=== PATIENT | male | born 1935 | race Caucasian/White ===

== ENCOUNTER 2020-04-06 18:02 | Inpatient (IN) | payer MEDICARE ==
[~2020-04-06] VITALS: Ht 177.8 cm; Wt 38.6 kg
[2020-04-06] MEDS ORDERED: SODIUM CHLORIDE 0.9% 1000ML 1,000 ML IV STA (18:52)
--- NOTE | 2020-04-06 18:52 | Emergency Department Note ---
History of Present Illnes History of Present Illness Chief Complaint: Genitourinary History of Present Illness This is a 85 year old male with upcoming procedure for urologic procedure for R flank pain. Historian: Patient, Family Member Onset (how long ago): day(s) (4) Location: R flank Radiation: Reports abdomen, Reports flank Severity: moderate Onset quality: gradual Duration (how long): day(s) Timing of current episode: constant Progression: worsening Chronicity: new Context: Denies recent illness, Denies recent surgery, Denies recent immobilization, Denies recent travel, Denies trauma/injury, Denies new medications, Denies hx of DVT/PE, Denies non-compliance w/ medications, Denies other Relieving factors: rest Exacerbating factors: movement Associated symptoms: Reports weakness Treatments prior to arrival: none Previous service: tests performed Past Medical/Family History Physician Review I have reviewed the patient's past medical and family history. Any updates have been documented here. Past Medical History Recent Fever: No Clinical Suspicion of Infectio: Yes New/Unexplained Change in Ment: No Past Medical History: Hypertension Social History Unable to obtain PSH: critical patient Review of Systems ROS Narrative Unable to obtain ROS: critical patient Review of Systems Constitutional: Reports weakness Genitourinary: Reports pain (flank) Physical Exam Related Data Allergies: Coded Allergies: No Known Allergies (Unverified , 04/06/20) Triage Vital Signs Vital Signs Date Time Temp Pulse Resp B/P (MAP) Pulse Ox O2 Delivery O2 Flow Rate FiO2 04/06/20 18:47 97.7 64 18 93 Room Air Vital signs reviewed: Yes Physical Exam CONSTITUTIONAL Constitutional: Present distressed, Present ill appearing HENT HENT: Present normocephalic, Present atraumatic, Present oropharynx clear/moist, Present nose normal HENT L/R: Present left ext ear normal, Present right ext ear normal EYES Eyes: Reports PERRL, Reports conjunctivae normal NECK Neck: Present ROM normal PULMONARY Pulmonary: Present effort normal, Present breath sounds normal CARDIOVASCULAR Cardiovascular: Present regular rhythm, Present heart sounds normal, Present capillary refill normal, Present normal rate GASTROINTESTINAL Abdominal: Present soft, Present nontender, Present bowel sounds normal, Present right CVA tenderness GENITOURINARY Genitourinary: Present exam deferred SKIN Skin: Present warm, Present dry MUSCULOSKELETAL Musculoskeletal: Present ROM normal NEUROLOGICAL Neurological: Present alert, Present no gross motor or sensory deficits PSYCHOLOGICAL Results Laboratory Lab results reviewed: Yes Laboratory comments Laboratory Tests Test 04/06/20 21:30 04/06/20 19:02 Coronavirus (PCR) Not detected (NOTDETECTED) White Blood Count 6.45 x10e3/uL (4.8-10.8) Red Blood Count 4.57 x10e6/uL (4.3-5.7) Hemoglobin 13.0 g/dL (14.0-18.0) Hematocrit 41.8 % (38.2-49.6) Mean Corpuscular Volume 91.5 fL (81-99) Mean Corpuscular Hemoglobin 28.4 pg (28-32) Mean Corpuscular Hemoglobin Concent 31.1 g/dL (31-35) Red Cell Distribution Width 15.5 % (11.7-14.4) Platelet Count 253 x10e3/uL (140-360) Neutrophils (%) (Auto) 78.6 % (38.7-80.0) Lymphocytes (%) (Auto) 13.3 % (18.0-39.1) Monocytes (%) (Auto) 7.1 % (4.4-11.3) Eosinophils (%) (Auto) 0.0 % (0.0-6.0) Basophils (%) (Auto) 0.5 % (0.0-1.0) Neutrophils # (Auto) 5.1 (2.1-6.9) Lymphocytes # (Auto) 0.9 (1.0-3.2) Monocytes # (Auto) 0.5 (0.2-0.8) Eosinophils # (Auto) 0.0 (0.0-0.4) Basophils # (Auto) 0.0 (0.0-0.1) Absolute Immature Granulocyte (auto 0.03 x10e3/uL (0-0.1) Sodium Level 138 mmol/L (136-145) Potassium Level 4.7 mmol/L (3.5-5.1) Chloride Level 103 mmol/L (98-107) Carbon Dioxide Level 20 mmol/L (22-29) Anion Gap 19.7 mmol/L (8-16) Blood Urea Nitrogen 29 mg/dL (7-26) Creatinine 1.17 mg/dL (0.72-1.25) Estimat Glomerular Filtration Rate 59 ML/MIN (60-) BUN/Creatinine Ratio 25 (6-25) Glucose Level 102 mg/dL (74-118) Calcium Level 8.9 mg/dL (8.4-10.2) Total Bilirubin 1.4 mg/dL (0.2-1.2) Aspartate Amino Transf (AST/SGOT) 21 IU/L (5-34) Alanine Aminotransferase (ALT/SGPT) 19 IU/L (0-55) Alkaline Phosphatase 108 IU/L (40-150) Creatine Kinase 22 IU/L (30-200) Creatine Kinase MB 0.80 ng/mL (0-5.0) Troponin I 0.004 ng/mL (0-0.300) Total Protein 7.2 g/dL (6.5-8.1) Albumin 3.6 g/dL (3.5-5.0) Globulin 3.6 g/dL (2.3-3.5) Albumin/Globulin Ratio 1.0 (0.8-2.0) Lipase 13 U/L (8-78) Imaging Imaging results reviewed: Yes Impressions [place] [address] Patient Name: LOUIE JOHNSTON MR #: [id number] : 1935 Age/Sex: 85/M Req #: [id number] Adm Physician: Ordered by: SHADY MARTIN DO Report #: [id number] Location: Room/Bed: Procedure: [id number] CT/CT BRAIN WO Exam Date: 04/06/20 Exam Time: 1929 REPORT STATUS: Signed EXAMINATION: Head CT without contrast. HISTORY:Dizziness. COMPARISON:None. TECHNIQUE: Multidetector axial images were obtained from the foramen magnum to the vertex without contrast. The images were reconstructed using brain and bone algorithms. Thin section brain images were reformatted into coronal and sagittal planes. Dose modulation, iterative reconstruction, and/or weight based adjustment of the mA/kV was utilized to reduce the radiation dose to as low as reasonably achievable. Intravenous contrast: None IMAGE QUALITY: Acceptable. FINDINGS: Skull/scalp: No lytic or blastic. lesions. No surgical changes. Parenchyma: Nonspecific bilateral frontoparietal confluent periventricular and patchy subcortical white matter hypodensity are likely related to small vessel ischemic changes. No acute hemorrhage, mass or acute major vascular territorial infarct. Arteries: No density suggestive of thrombosis. Dural sinuses: No abnormal density suggestive of thrombosis. Ventricles: Mild compensated dilatation due to volume loss. No acute hydrocephalus. Extra-axial spaces: No abnormal density. Brain volume: Mild generalized cerebral volume loss. Craniocervical junction: No mass, Chiari malformation, or basilar invagination. Sella: No mass. Paranasal/mastoid sinuses: Imaged portions unremarkable. IMPRESSION: No acute intracranial abnormality. Mild generalized cerebral volume loss. Moderate supratentorial white matter microvascular ischemic changes. Signed by: Dr. Emily Riley M.D. on 04/06/2020 8:13 PM Dictated By: EMILY RILEY MD 12 Transcribed By: JEROMY on 04/06/202012 COPY TO: SHADY MARTIN DO~ [place] [address] Patient Name: LOUIE JOHNSTON MR #: [id number] : 1935 Age/Sex: 85/M Req #: [id number] Adm Physician: Ordered by: SHADY MARTIN DO Report #: [id number] Location: Room/Bed: Procedure: [id number] DX/CHEST SINGLE (PORTABLE) Exam Date: 04/06/20 Exam Time: 1929 REPORT STATUS: Signed EXAMINATION: CHEST SINGLE (PORTABLE) INDICATION: Right flank pain COMPARISON: None FINDINGS: TUBES and LINES: None. LUNGS: The lungs are hyperinflated. There is prominent interstitial lung markings and reticulonodular opacities at the bilateral lung bases. There are scattered calcified granulomas. PLEURA: No pleural effusion or pneumothorax. HEART AND MEDIASTINUM: The cardiomediastinal silhouette is mildly enlarged. There is atherosclerotic calcification of the thoracic aortic knob. BONES AND SOFT TISSUES: No acute osseous lesion. Soft tissues are unremarkable. UPPER ABDOMEN: No free air under the diaphragm. There are surgical clips in the expected location of the gastroesophageal junction. IMPRESSION: 1. Lung changes most compatible with emphysema. 2. Reticulonodular opacities at the bilateral lung bases most consistent with multifocal pneumonia. Signed by: Usha Roger MD on 04/06/2020 7:57 PM Dictated By: USHA ROGER MD 56 Transcribed By: JEROMY on 04/06/201956 COPY TO: SHADY MARTIN DO~ [place] [address] Patient Name: LOUIE JOHNSTON MR #: [id number] : 1935 Age/Sex: 85/M Req #: [id number] Adm Physician: Ordered by: SHADY MARTIN DO Report #: [id number] Location: ER Room/Bed: _ Procedure: [id number] CT/CT ABDOMEN/PELVIS WO Exam Date: 04/06/20 Exam Time: 1929 REPORT STATUS: Signed EXAM: CT Abdomen and Pelvis WITHOUT contrast INDICATION: Right flank pain. COMPARISON: None. TECHNIQUE: Abdomen and pelvis were scanned utilizing a multidetector helical scanner from the lung base to the pubic symphysis without administration of IV contrast. Absence of intravenous contrast decreases sensitivity for detection of focal lesions and vascular pathology. Coronal and sagittal reformations were obtained. Routine protocol was performed. IV CONTRAST: None ORAL CONTRAST: None COMPLICATIONS: None RADIATION DOSE: Total DLP: 158.41 mGy*cm Estimated effective dose: (DLP x 0.015 x size factor) mSv CTDIvol has been reviewed. It is below the limits set by the Radiation Protocol Committee (RPC). Dose modulation, iterative reconstruction, and/or weight based adjustment of the mA/kV was utilized to reduce the radiation dose to as low as reasonably achievable. FINDINGS: LINES and TUBES: None. LOWER THORAX: The heart is enlarged with atherosclerotic calcification of the coronary vessels. There is multifocal patchy airspace opacities of the lung bases with bronchiectasis. The descending aorta is ectatic measuring up to 3.8 cm with mild atherosclerotic calcification. HEPATOBILIARY: No focal hepatic lesions. No biliary ductal dilation. GALLBLADDER: No radio-opaque stones or sludge. No wall thickening. SPLEEN: No splenomegaly. PANCREAS: There is fatty infiltration of the pancreas. ADRENALS: Not well visualized. KIDNEYS/URETERS: Right: There is an obstructive 9 mm stone in the collecting system resulting in mild hydronephrosis. There are multiple additional subcentimeter nonobstructive stones in the mid and lower pole. There is a cortical cyst in the midpole. Left: There is a 7 mm nonobstructive stone in the inferior pole. There is a small cortical cyst in the inferior pole. No evidence of hydroureteronephrosis. GI TRACT: Evaluation of the bowel is severely limited by popliteal mesenteric fat and lack of enteric contrast. There are postoperative changes of prior bowel surgery with chain sutures in the central mid to lower abdomen. No abnormal distention, no obvious wall thickening, or evidence of bowel obstruction. Appendix is not clearly identified. There is however no fat stranding or adenopathy in the right lower quadrant to suggest appendicitis. PELVIC ORGANS/BLADDER: There is diffuse stranding of the pelvic fat planes. LYMPH NODES: No lymphadenopathy. VESSELS: There is severe atherosclerotic disease in the aorta and major arterial branches. There is infrarenal abdominal aortic aneurysm which measures approximately 3.3 x 3.1 cm and spans a length of approximately 2 cm. PERITONEUM / RETROPERITONEUM: There is diffuse stranding of the mesenteric fat. BONES: The bones are diffusely demineralized There are degenerative changes in the spine. SOFT TISSUES: There is diffuse anarsarca. IMPRESSION: 1. Obstructive 9 mm stone in the collecting system of the right kidney resulting in mild hydronephrosis. 2. Subcentimeter nonobstructive bilateral nephrolithiasis. 3. Nodular airspace opacities of the lung bases with bronchiectasis which most likely represents aspiration or multifocal pneumonia with superimposed atelectasis. 4. Cardiomegaly with atherosclerotic calcification of the coronary vessels. 5. Infrarenal abdominal aortic aneurysm. Severe atherosclerotic disease. 6. Diffuse stranding of the mesenteric fat and anasarca are likely reflective of fluid overload state. 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: Interpreted by ED physician Date: Apr 06, 2020 Time: 20:47 Prior ECG tracings: reviewed Rhythm: atrial fibrillation Rate: tachycardia BPM: 142 ST segments normal: No ST segment flattening: II, III, V4, V5, V6 T waves normal: No T waves flattening: V1-V6 Clinical Impression: abnormal ECG Critical Care Time Total Critical Care Time (min): 31 Critcal care necessary due to: cardiac failure Critcal care time spent by me: discussion w consultants, discussion w primary provider, evaluation patient response to tx, examination of patient, obtaining hx from patient/surrogate, order/perform tx or interventions, order/review laboratory studies, order/review radiographic studies, pulse oximetry, re- evaluation of patient condition Assessment & Plan Medical Decision Making MDM Diff Dx : sepsis, pneumonia ,covid-19 infection, pyelonephritis and kidney stone. Reassessment Reassessment tachycardia secondary to cardiac process of atrial fibrillation with RVR Assessment & Plan Final Impression: (1) Atrial fibrillation with RVR (2) Obstructive uropathy (3) Person under investigation for COVID-19 Depart Disposition: ADMITTED MARTINSHADY CHRISTIE Apr 06, 2020 18:52
[2020-04-06] MEDS ORDERED: PIPERACILLIN/TAZO 4.5 GM 100 ML IV SCH (19:00)
--- NOTE | 2020-04-06 20:00 | Diagnostic Imaging Report ---
EXAMINATION: CHEST SINGLE (PORTABLE) INDICATION: Right flank pain COMPARISON: None FINDINGS: TUBES and LINES: None. LUNGS: The lungs are hyperinflated. There is prominent interstitial lung markings and reticulonodular opacities at the bilateral lung bases. There are scattered calcified granulomas. PLEURA: No pleural effusion or pneumothorax. HEART AND MEDIASTINUM: The cardiomediastinal silhouette is mildly enlarged. There is atherosclerotic calcification of the thoracic aortic knob. BONES AND SOFT TISSUES: No acute osseous lesion. Soft tissues are unremarkable. UPPER ABDOMEN: No free air under the diaphragm. There are surgical clips in the expected location of the gastroesophageal junction. IMPRESSION: 1. Lung changes most compatible with emphysema. 2. Reticulonodular opacities at the bilateral lung bases most consistent with multifocal pneumonia. Signed by: Kimmie Lloyd MD on 04/06/2020 7:57 PM
[2020-04-06 20:11] LABS: BASOPHILS % 0.5 % (0.0-1.0); HEMATOCRIT 41.8 % (38.2-49.6); LYMPHOCYTES # (AUTO) 0.9 (1.0-3.2); LYMPHOCYTES % 13.3 % (18.0-39.1); MEAN CORPUSCULAR HEMOGLOBIN 28.4 pg (28-32); MEAN CORPUSCULAR HGB CONC 31.1 g/dL (31-35); MEAN CORPUSCULAR VOLUME 91.5 fL (81-99); MONOCYTES # (AUTO) 0.5 (0.2-0.8); MONOCYTES % 7.1 % (4.4-11.3); NEUTROPHILS # (AUTO) 5.1 (2.1-6.9); NEUTROPHILS % 78.6 % (38.7-80.0); PLATELET COUNT 253 x10e3/uL (140-360); RED BLOOD COUNT 4.57 x10e6/uL (4.3-5.7); RED CELL DISTRIBUTION WIDTH 15.5 % (11.7-14.4)
--- NOTE | 2020-04-06 20:16 | Diagnostic Imaging Report ---
EXAMINATION: Head CT without contrast. HISTORY:Dizziness. COMPARISON:None. TECHNIQUE: Multidetector axial images were obtained from the foramen magnum to the vertex without contrast. The images were reconstructed using brain and bone algorithms. Thin section brain images were reformatted into coronal and sagittal planes. Dose modulation, iterative reconstruction, and/or weight based adjustment of the mA/kV was utilized to reduce the radiation dose to as low as reasonably achievable. Intravenous contrast: None IMAGE QUALITY: Acceptable. FINDINGS: Skull/scalp: No lytic or blastic. lesions. No surgical changes. Parenchyma: Nonspecific bilateral frontoparietal confluent periventricular and patchy subcortical white matter hypodensity are likely related to small vessel ischemic changes. No acute hemorrhage, mass or acute major vascular territorial infarct. Arteries: No density suggestive of thrombosis. Dural sinuses: No abnormal density suggestive of thrombosis. Ventricles: Mild compensated dilatation due to volume loss. No acute hydrocephalus. Extra-axial spaces: No abnormal density. Brain volume: Mild generalized cerebral volume loss. Craniocervical junction: No mass, Chiari malformation, or basilar invagination. Sella: No mass. Paranasal/mastoid sinuses: Imaged portions unremarkable. IMPRESSION: No acute intracranial abnormality. Mild generalized cerebral volume loss. Moderate supratentorial white matter microvascular ischemic changes. Signed by: Dr. Emily Riley M.D. on 04/06/2020 8:13 PM
--- NOTE | 2020-04-06 20:21 | Diagnostic Imaging Report ---
EXAM: CT Abdomen and Pelvis WITHOUT contrast INDICATION: Right flank pain. COMPARISON: None. TECHNIQUE: Abdomen and pelvis were scanned utilizing a multidetector helical scanner from the lung base to the pubic symphysis without administration of IV contrast. Absence of intravenous contrast decreases sensitivity for detection of focal lesions and vascular pathology. Coronal and sagittal reformations were obtained. Routine protocol was performed. IV CONTRAST: None ORAL CONTRAST: None COMPLICATIONS: None RADIATION DOSE: Total DLP: 158.41 mGy*cm Estimated effective dose: (DLP x 0.015 x size factor) mSv CTDIvol has been reviewed. It is below the limits set by the Radiation Protocol Committee (RPC). Dose modulation, iterative reconstruction, and/or weight based adjustment of the mA/kV was utilized to reduce the radiation dose to as low as reasonably achievable. FINDINGS: LINES and TUBES: None. LOWER THORAX: The heart is enlarged with atherosclerotic calcification of the coronary vessels. There is multifocal patchy airspace opacities of the lung bases with bronchiectasis. The descending aorta is ectatic measuring up to 3.8 cm with mild atherosclerotic calcification. HEPATOBILIARY: No focal hepatic lesions. No biliary ductal dilation. GALLBLADDER: No radio-opaque stones or sludge. No wall thickening. SPLEEN: No splenomegaly. PANCREAS: There is fatty infiltration of the pancreas. ADRENALS: Not well visualized. KIDNEYS/URETERS: Right: There is an obstructive 9 mm stone in the collecting system resulting in mild hydronephrosis. There are multiple additional subcentimeter nonobstructive stones in the mid and lower pole. There is a cortical cyst in the midpole. Left: There is a 7 mm nonobstructive stone in the inferior pole. There is a small cortical cyst in the inferior pole. No evidence of hydroureteronephrosis. GI TRACT: Evaluation of the bowel is severely limited by popliteal mesenteric fat and lack of enteric contrast. There are postoperative changes of prior bowel surgery with chain sutures in the central mid to lower abdomen. No abnormal distention, no obvious wall thickening, or evidence of bowel obstruction. Appendix is not clearly identified. There is however no fat stranding or adenopathy in the right lower quadrant to suggest appendicitis. PELVIC ORGANS/BLADDER: There is diffuse stranding of the pelvic fat planes. LYMPH NODES: No lymphadenopathy. VESSELS: There is severe atherosclerotic disease in the aorta and major arterial branches. There is infrarenal abdominal aortic aneurysm which measures approximately 3.3 x 3.1 cm and spans a length of approximately 2 cm. PERITONEUM / RETROPERITONEUM: There is diffuse stranding of the mesenteric fat. BONES: The bones are diffusely demineralized There are degenerative changes in the spine. SOFT TISSUES: There is diffuse anarsarca. IMPRESSION: 1. Obstructive 9 mm stone in the collecting system of the right kidney resulting in mild hydronephrosis. 2. Subcentimeter nonobstructive bilateral nephrolithiasis. 3. Nodular airspace opacities of the lung bases with bronchiectasis which most likely represents aspiration or multifocal pneumonia with superimposed atelectasis. 4. Cardiomegaly with atherosclerotic calcification of the coronary vessels. 5. Infrarenal abdominal aortic aneurysm. Severe atherosclerotic disease. 6. Diffuse stranding of the mesenteric fat and anasarca are likely reflective of fluid overload state. Signed by: Kimmie Lloyd MD on 04/06/2020 8:18 PM
[2020-04-06 20:27] LABS: ALBUMIN 3.6 g/dL (3.5-5.0); ANION GAP 19.7 mmol/L (8-16); CALCIUM 8.9 mg/dL (8.4-10.2); CREATININE, SERUM 1.17 mg/dL (0.72-1.25); POTASSIUM 4.7 mmol/L (3.5-5.1)
[2020-04-06 20:36] LABS: CREATINE KINASE MB 0.8 ng/mL (0-5.0)
[2020-04-06] MEDS ORDERED: AMIODARONE HCL 900 MG in DEXTROSE 5% 500ML 500 ML IV STA (20:42)
[2020-04-06] MEDS ORDERED: DIGOXIN INJ 0.25 MG/ML 2 ML AMP IV ONE (20:45)
[2020-04-06] MEDS ORDERED: AMIODARONE HCL 150 MG/100 ML BAG IV ONE (20:45)
[2020-04-06] MEDS ORDERED: MORPHINE SULFATE INJ 4 MG/ML INJ 1ML IV PRN (20:45)
[2020-04-06] MEDS ORDERED: ONDANSETRON HCL INJ 2MG/ML 2ML 2 MG/ML VIAL IV PRN (20:45)
[2020-04-06] MEDS ORDERED: ZOLPIDEM TARTRATE 5 MG TAB PO PRN (21:15)
[2020-04-06] MEDS: PIPER-TAZ 3.375 GM 50 ML IV SCH (21:26)
[2020-04-06] MEDS ORDERED: METOPROLOL TARTRATE INJ 1 MG/ML VIAL IV PRN (21:45)
[2020-04-06] MEDS ORDERED: ACETAMINOPHEN 325 MG TAB PO PRN (21:45)
[2020-04-06] MEDS ORDERED: POLYETHYLENE GLYCOL 3350 17 GM PACK PO PRN (21:45)
[2020-04-06] MEDS ORDERED: AMIODARONE HCL 360MG 200 ML IV ONE (21:53)
[2020-04-06] MEDS ORDERED: AMIODARONE HCL 150MG 100 ML ONE (21:53)
[2020-04-06] MEDS ORDERED: KETOROLAC TROMETHAMINE 30 MG/ML VIAL IV STA (22:13)
[2020-04-06] MEDS ORDERED: AZITHROMYCIN 250MG/NS 100 ML 100 ML IV SCH (22:15)
[2020-04-06] MEDS ORDERED: KETOROLAC TROMETHAMINE 30 MG/ML VIAL ONE (22:23)
[2020-04-06] MEDS ORDERED: AZITHROMYCIN 500MG/NS 250 ML 250 ML ONE (22:42)
[2020-04-06] MEDS ORDERED: AZITHROMYCIN 500MG/NS 250 ML 125 ML IV ONE (23:00)
[2020-04-07] VITALS (26 sets, daily range): BP systolic 106–169; BP diastolic 78–126
--- NOTE | 2020-04-07 00:22 | History and Physical ---
PRIMARY CARE PHYSICIAN: Dr. Raul Gillespie. CONSULTING PHYSICIANS: Dr. Robb Bonilla with Urology, Dr. Ruby Singh with Cardiology, and Dr. Sacha Salgado with Pulmonology/Critical Care Medicine. CHIEF COMPLAINT: Right flank pain. HISTORY OF PRESENT ILLNESS: The patient is an 85-year-old male, who admitted via the emergency department with complaints of right flank pain and dizziness. He was supposed to have a lithotripsy procedure by his urologist, Dr. Bonilla on Thursday, but has pain 10/10 and unable to ambulate. His is at the bedside. PAST MEDICAL HISTORY: COPD, CHF (unknown if systolic, diastolic, or mixed), hepatitis C virus, kidney stones, dementia. PAST SURGICAL HISTORY: Hernia repair and perforated ulcer. FAMILY HISTORY: The patient's states that the patient left [facility] when he was young, unknown about his family history. SOCIAL HISTORY: Admits to smoking tobacco about 1 pack per day for 34 years. Quit smoking about 35 to 40 years ago. Denies previous use of alcohol or illicit drugs. ALLERGIES: NO KNOWN ALLERGIES. REVIEW OF SYSTEMS: Fourteen-point review of systems was completed. The patient denies any chills or fever. He has right flank pain, which he rates 8/10 on a 0-10 pain scale currently. PSYCHIATRIC: Possible history of dementia. GASTROINTESTINAL: Denies nausea, vomiting, diarrhea. Last bowel movement was this morning about 6:00 a.m. NEUROLOGIC: Dizziness. Otherwise, review of systems is negative. PHYSICAL EXAMINATION: VITAL SIGNS: Temperature 97.7, pulse 64, blood pressure 97/73, respirations 18, and oxygen saturation 93% on room air. Height 5 feet 10 inches, weight 105 pounds, BMI 15.06. GENERAL: Supine on stretcher in the ER room 10, in no acute distress. LUNGS: Bibasilar crackles. HEENT: EOMI. NECK: Supple. CARDIOVASCULAR: Irregularly irregular rhythm. ABDOMEN: Bowel sounds positive. Soft, nontender. EXTREMITIES: No pitting edema. No clubbing, cyanosis, or signs of DVT. NEUROLOGICAL: GCS 14; eye 4, verbal 4, motor 6. LABORATORY DATA: WBC 6.45, hemoglobin 13, hematocrit 41.8, and platelets 253. Sodium 138, potassium 4.7, chloride 103, CO2 of 20, anion gap 19.7, BUN 29, creatinine 1.17, estimated GFR 59, glucose 102, calcium 8.9, total bilirubin 1.4, AST 21, ALT 19, alkaline phosphatase 108. Creatine kinase 22, CK-MB 0.8, troponin I 0.004. Total protein 7.2, albumin 3.6, lipase 13. No urinalysis collected as of yet. Blood cultures x2 have been collected, results are pending. IMAGING/OTHER: CT of the brain showed no acute intracranial abnormality. Mild generalized cerebral volume loss, moderate supratentorial white matter microvascular ischemic changes. Chest x-ray shows lung changes most compatible with emphysema. Reticulonodular opacities at the bilateral lung bases, most consistent with multifocal pneumonia. CT of the abdomen and pelvis: 1. Obstructive 9 mm stone in the collecting system of the right kidney resulting in mild hydronephrosis. 2. Subcentimeter nonobstructive bilateral nephrolithiasis. 3. Nodular airspace opacities of the lung bases with bronchiectasis, which most likely represents aspiration or multifocal pneumonia with superimposed atelectasis. 4. Cardiomegaly with atherosclerotic calcification of the coronary vessels. 5. Infrarenal abdominal aortic aneurysm, severe atherosclerotic disease. 6. Diffuse stranding of the mesenteric fat and anasarca, likely reflective of fluid overload state. A 12-lead ECG, atrial fibrillation with heart rate 142. Echocardiogram ordered and pending. ASSESSMENT AND PLAN: 1. Obstructive right renal calculus (9 mm) with mild hydronephrosis. Urology consulted. The patient may need lithotripsy. Monitor. Pain control. 2. Aspiration versus multifocal pneumonia, present on admission, rule out coronavirus disease 2018. The patient's presentation is worrisome for coronavirus, and coronavirus PCR has been ordered. CT of the chest may be prudent. Pulmonology/Critical Care Medicine has been consulted. Continue Zosyn. Infectious Disease consult has been ordered. We will go ahead and add azithromycin. 3. Coronary artery disease and severe atherosclerotic disease, rule out acute coronary syndrome. Cardiac biomarkers have been ordered. Initial CK 22, CK-MB 0.8, troponin I 0.004. Cardiology has been consulted. 4. Chronic obstructive pulmonary disease without acute exacerbation. If the patient found to be COVID negative, we will add nebulized breathing treatments. Continue supplemental oxygen wean as tolerated. 5. Infrarenal abdominal aortic aneurysm(3.[address] showed abdominal aortic aneurysm. Cardiology consulted. Monitor vital signs. 6. New onset atrial fibrillation with rapid ventricular response, heart rate 142. Amiodarone bolus has been given. Awaiting the start of amiodarone drip. Echocardiogram ordered and pending. Cardiology following. Monitor for improvement. 7. Khtjt-[id number] congestive heart failure, systolic versus diastolic versus mixed. Echocardiogram ordered. Await results. CT did show some signs of fluid volume overload. Monitor strict intake and output. Follow up on chest x-ray results. 8. Cachexia, BMI 15.06. Monitor dietary intake. 9. Prophylaxis, IV Pepcid and SCDs. Inpatient, billing code [id number], time spent 60 minutes. Dictated by Holden Hennessy NP Raul Fowler MD HWP/MODL /[id number]
[2020-04-07] MEDS: SODIUM CHLORIDE 0.9% 1000ML 1,000 ML IV SCH ×2 (00:47→17:55)
--- NOTE | 2020-04-07 03:23 | Consultation ---
DATE OF CONSULTATION: Pulmonary Critical Care Consultation CHIEF COMPLAINT: Flank pain and atrial fibrillation. HISTORY OF PRESENT ILLNESS: The patient is an 85-year-old man with a history of some nephrolithiasis and intermittent confusion. He has been having right flank pain and is scheduled for some urological procedure. He came to the emergency department with some palpitations and was found to have rapid atrial fibrillation. He did not complain of dyspnea or cough. He was started on amiodarone. PAST MEDICAL HISTORY: 1. Nephrolithiasis. 2. Infrarenal aortic aneurysm. PAST SURGICAL HISTORY: Noncontributory. ALLERGIES: NO KNOWN DRUG ALLERGIES. FAMILY HISTORY: Noncontributory. SOCIAL HISTORY: The patient is here with his . He does have some intermittent confusion. He is not an active smoker or drinker. REVIEW OF SYSTEMS: No history of fever. No headache. No neck pain. He does note some palpitations. There is no chest pain. He has dyspnea on exertion. There is some right flank pain. He has no nausea or vomiting. There is no leg edema. PHYSICAL EXAMINATION: VITAL SIGNS: The blood pressure is 97/70 and the pulse is 64. The patient is afebrile. The respiratory rate is 18. Saturation is 93% on room air. HEENT: Shows no facial swelling or erythema. LYMPHATIC: Shows no submandibular, cervical, or supraclavicular adenopathy. CARDIAC: Reveals regular rate and rhythm with normal S1 and S2. LUNGS: Auscultation of lungs reveals prolonged expiratory phase bilaterally. There is no wheezing. ABDOMEN: Soft, nontender. There is no rebound or guarding. EXTREMITIES: Show no leg edema or calf tenderness. There is no cyanosis or clubbing. SKIN: Shows no rashes. NEUROLOGIC: Shows no focal abnormalities. LABORATORY DATA: White blood cell count is 6.45, hemoglobin is 13, and platelet count is 253. BUN to creatinine ratio is 29 to 1.17. The carbon dioxide is 20 and the other electrolytes are within normal limits. EKG: EKG shows rapid atrial fibrillation. RADIOGRAPHIC DATA: CT scan of the head shows some generalized cerebral volume loss. Chest x-ray shows hyperinflated lungs compatible with emphysema as well as some reticular nodule opacities at the bases suggestive of possible pneumonia. CT scan of the abdomen and pelvis shows some mild hydronephrosis and a 9 mm stone in the collecting duct on the right side. There is some bilateral nephrolithiasis as well as some nodular opacities at the lung bases, suggesting possible multifocal pneumonia. There is an infra-aortic aneurysm as well as some cardiomegaly. IMPRESSION: 1. Aspiration pneumonia. 2. Nephrolithiasis with mild right-sided hydronephrosis. 3. Atrial fibrillation with rapid ventricular response. 4. Chronic renal insufficiency, stage 3. 5. Moderate protein-calorie malnutrition. PLAN: 1. The patient has been started on amiodarone. 2. Cardiology consultation. 3. The patient has received some intravenous fluids. 4. Broad-spectrum antibiotics with paula cultures. 5. Urology consultation. 6. Nutritional supplements. MD AMBIKA Sam/KNIA /[id number]
[2020-04-07] MEDS ORDERED: AMIODARONE HCL 900 MG in DEXTROSE 5% 500ML 500 ML IV ONE (04:00)
[2020-04-07 04:50] LABS: BASOPHILS % 0.5 % (0.0-1.0); HEMATOCRIT 38.8 % (38.2-49.6); HEMOGLOBIN 12.3 g/dL (14.0-18.0); LYMPHOCYTES # (AUTO) 0.7 (1.0-3.2); LYMPHOCYTES % 17.4 % (18.0-39.1); MEAN CORPUSCULAR HEMOGLOBIN 28.7 pg (28-32); MEAN CORPUSCULAR HGB CONC 31.7 g/dL (31-35); MEAN CORPUSCULAR VOLUME 90.7 fL (81-99); MONOCYTES # (AUTO) 0.3 (0.2-0.8); NEUTROPHILS # (AUTO) 2.8 (2.1-6.9); NEUTROPHILS % 74.8 % (38.7-80.0); PLATELET COUNT 186 x10e3/uL (140-360); RED BLOOD COUNT 4.28 x10e6/uL (4.3-5.7); RED CELL DISTRIBUTION WIDTH 15.5 % (11.7-14.4)
[2020-04-07 05:12] LABS: ALANINE AMINOTRANSFERASE 14 IU/L (0-55); ALBUMIN 3.2 g/dL (3.5-5.0); ALBUMIN/GLOBULIN RATIO 1.1 (0.8-2.0); ALKALINE PHOSPHATASE 86 IU/L (40-150); BLOOD UREA NITROGEN 31 mg/dL (7-26); BUN/CREATININE RATIO 27 (6-25); CALCIUM 8.5 mg/dL (8.4-10.2); CARBON DIOXIDE 25 mmol/L (22-29); CHLORIDE 104 mmol/L (98-107); CREATININE, SERUM 1.13 mg/dL (0.72-1.25); EST GLOMERULAR FILTRATION RATE > 60 ML/MIN (60-); GLUCOSE 100 mg/dL (74-118); SODIUM 139 mmol/L (136-145)
[2020-04-07 05:19] LABS: CREATINE KINASE MB 0.8 ng/mL (0-5.0)
[2020-04-07 05:35] LABS: CHOL/HDL RATIO 2.8 (3.9-4.7); MAGNESIUM 1.7 MG/DL (1.3-2.1); PHOSPHORUS 4.3 MG/DL (2.3-4.7)
[2020-04-07 05:54] LABS: THYROID STIMULATING HORMONE 5.46 uIU/mL (0.350-4.940)
--- NOTE | 2020-04-07 07:00 | NUR ---
Report given to Joana Poole RN.
[2020-04-07] MEDS: PIPER-TAZ 3.375 GM 50 ML IV SCH ×3 (07:01→22:36)
[2020-04-07] MEDS: DOCUSATE SODIUM 100 MG CAP PO SCH ×2 (09:00→17:00)
[2020-04-07] MEDS: FAMOTIDINE 20 MG/2 ML VIAL IV SCH ×2 (09:37→17:55)
[2020-04-07] MEDS ORDERED: HYDRALAZINE HCL 20 MG/ML VIAL IV PRN (10:00)
[2020-04-07] MEDS: ALBUTEROL/IPRATROPIUM 3 ML NEB NEB SCH ×4 (11:05→23:10)
--- NOTE | 2020-04-07 11:43 | Progress Note ---
DATE: SUBJECTIVE: The patient is feeling better. He has less flank pain. He is complaining of not being able to eat. His heart rate is improved. He is being switched to p.o. amiodarone. Echocardiogram showed ejection fraction of 35%-40%. PHYSICAL EXAMINATION: VITAL SIGNS: Blood pressure is 163/94, saturation is 97%, respiratory rate is 25, and pulse is 67. HEENT: Shows no facial swelling or erythema. LYMPHATIC: Shows no submandibular, cervical, or supraclavicular adenopathy. CARDIAC: Reveals regular rate and rhythm with normal S1, S2. LUNGS: Auscultation of lungs reveals crackles at the bases. There is no wheezing. ABDOMEN: Soft and nontender. There is no rebound or guarding. EXTREMITIES: Shows no leg edema or calf tenderness. There is no cyanosis or clubbing. SKIN: Shows no rashes. NEUROLOGICAL: Shows no focal abnormalities. LABORATORY DATA: BUN to creatinine ratio is 31 to 1.13. Other electrolytes are within normal limits and the albumin is 3.2. The white blood cell count is 3.7, hemoglobin is 12.3, and the platelet count is 186. IMPRESSION: 1. Aspiration pneumonia. 2. Nephrolithiasis with mild right-sided hydronephrosis. 3. Atrial fibrillation. 4. Chronic renal insufficiency, stage 3. 5. Moderate protein-calorie malnutrition. 6. Chronic obstructive pulmonary disease. 7. Infrarenal abdominal aortic aneurysm, measuring 3.3 cm. 8. Chronic systolic cardiomyopathy. 9. Acute on chronic systolic congestive heart failure. PLAN: 1. Continue current antibiotics. 2. Continue p.o. amiodarone. 3. Speech therapy evaluation. Begin feedings after speech therapy evaluation. 4. Await further input from Urology. MD AMBIKA Sam/KINA /[id number]
--- NOTE | 2020-04-07 11:48 | Consultation ---
DATE OF CONSULTATION: 04/07/2020 REASON FOR CONSULTATION: Atrial fibrillation. HISTORY OF PRESENT ILLNESS: This is an 85-year-old male, known to practice with history of atrial fibrillation, systolic heart failure, COPD, emphysema, hepatitis C, prostate cancer status post radiation and noncompliance. The patient presents to [facility] ER with complaints of right-sided flank pain, was being followed by apparently Urology, was to have a lithotripsy, however, the pain became very severe; therefore, came to the ER. CT of abdomen and pelvis showing obstructive 9 mm stone in the right kidney with mild hydronephrosis. Also, the patient was noted in atrial fibrillation with RVR. Cardiology was consulted to evaluate the patient. The patient is seen in ICU on amiodarone drip. Heart rate in the 70s. He is well known to practice, very poor historian, noncompliant in fact, we saw him in August 2019, and the patient was not taking any medications. Importance of medication compliance was discussed with him at that time. However, he was also supposed to follow up and never did. At this time, he does not know what medicines he takes, not clear if he is even taking medicine. But, however, he did report that he has been having right-sided flank pain and was to have a procedure, however, the pain became worse and therefore, came to the ER. At this time, denies any chest pain or shortness of breath. PAST MEDICAL HISTORY: Atrial fibrillation, CHF, COPD, emphysema, ex-smoker, hepatitis C, prostate cancer status post radiation, noncompliant history. PAST SURGICAL HISTORY: Hernia repair and bowel resection. FAMILY HISTORY: Mother in her 90s of natural causes. Father also about 89 years old from natural causes. SOCIAL HISTORY: He is . He is retired from [employer]. He is a former smoker, quit in 1994. Denies alcohol use. ALLERGIES: NO KNOWN ALLERGIES. HOME MEDICATIONS: The patient was supposed to be on, however, unknown if he is taking; aspirin 81 mg daily, furosemide 40 mg daily, metoprolol 25 mg b.i.d., and levothyroxine 25 mcg daily. REVIEW OF SYSTEMS: GENERAL: Denies any weight changes. Denies any fatigue or weakness. Negative for fevers or chills. SKIN: No rashes, sores. HEENT: Denies any nausea, vomiting, blurred vision, double vision, epistaxis, sore throat, swollen neck, or hoarseness. CARDIAC: Positive for palpitations. Denies any chest pain. Positive for dyspnea on exertion. Denies any orthopnea, PND, or lower extremity edema. RESPIRATORY: Denies any shortness of breath, wheezing, coughing, or hemoptysis. GI: Reports good appetite. Denies any nausea, vomiting, diarrhea, constipation, melena, or tarry bloody stools. URINARY: Positive for frequency and urgency. Positive for dysuria. Denies any hematuria. VASCULAR: Denies any lower extremity edema or claudication. MUSCULOSKELETAL: Positive for generalized joint pains or back pain. NEUROLOGIC: Denies any tingling, tremors, weakness, paralysis, fainting, blackouts, or seizures. HEMATOLOGY: Denies bruising or bleeding. ENDOCRINE: Denies any heat or cold intolerance, polyuria, polydipsia, or polyphagia. PHYSICAL EXAMINATION: VITAL SIGNS: Height 70 inches, weight 105 pounds, BMI 15. Temperature 97.5, pulse 65, respiratory rate 16, blood pressure 142/97, and pulse ox 97% on room air. GENERAL: In no acute distress at this time, poor historian. SKIN: No rashes or bruises noted. HEENT: Normocephalic. Pupils are equal and reactive. Extraocular movements are intact. Trachea midline. No JVD. No carotid bruit. Oral mucosa pink. HEART: Irregular rate and rhythm. Soft systolic murmur in right upper sternal border. LUNGS: Bilateral breath sounds, clear to auscultation. Poor airway entry. ABDOMEN: Soft, nontender, and nondistended. No organomegaly noted. MUSCULOSKELETAL: No lower extremity edema noted. VASCULAR: +2 radial pulses bilaterally, +1 DP and PT pulses bilaterally. NEUROLOGIC: Cranial nerves II through XII seem intact. LABORATORY DATA: White count 6, hemoglobin 13, hematocrit 41, and platelets 253. Sodium 139, potassium 4.7, chloride 103, bicarb 20, BUN 29, creatinine 1.1. Troponin 0.004, next 0.01. TSH 5.4. Coronavirus PCR not detected. EKG showing atrial fibrillation with RVR. CT of abdomen and pelvis showing obstructing 9 mm stone in the right kidney with mild hydronephrosis, also subcentimeter nonobstructing bilateral nephrolithiasis, nodular airspace opacities in the bases, likely representing aspiration or multifocal pneumonia, infrarenal abdominal aortic aneurysm of 3.3 cm. ASSESSMENT: 1. Obstructive renal stone with mild hydronephrosis. 2. Aspiration pneumonia. 3. Atrial fibrillation with rapid ventricular response. 4. Congestive heart failure, systolic/diastolic. 5. Hypertension. 6. Noncompliant. PLAN: 1. The patient presents to [facility] ER with complaints of right-sided flank pain, was to have a lithotripsy, however, flank pain became worse; therefore, he came to the ER. He was noted in atrial fibrillation with rapid ventricular response, also of course with obstructive right renal stone. Currently, the patient is on amiodarone. Heart rate in the 70s. The patient with chronic atrial fibrillation. We will prefer a more of rate control strategy. We will recommend discontinue amiodarone drip. 2. OAC therapy has been discussed with the patient previously. However, the patient refused and was only on anti-platelet therapy. For now, of course, no OAC therapy for potential procedure in next coming days. The patient is cleared from cardiac standpoint. 3. Continue telemonitoring. 4. We will do an echo just to evaluate heart function and structure. 5. Continue beta-edwin therapy for rate control. 6. Monitor fluid status. 7. We will continue to follow the patient and further recommendations as clinical course dictates. Dictated by Jair Schmitt NP Ruby Singh MD DC/KINA /[id number]
[2020-04-07] MEDS: METOPROLOL TARTRATE INJ 1 MG/ML VIAL IV SCH ×2 (12:00→17:55)
[2020-04-07] MEDS ORDERED: METOPROLOL TARTRATE INJ 1 MG/ML VIAL IV SCH (12:00)
--- NOTE | 2020-04-07 12:53 | Progress Note ---
DATE: 04/07/2020 CONSULTING PHYSICIANS: 1. Robb Bonilla MD with Urology. 2. Ruby Singh MD with Cardiology. 3. Sacha Salgado MD with Pulmonology Critical Care Medicine. SUBJECTIVE: The patient denies any pain. No chills or fever. No right flank pain, yesterday is completely dissipated. No nausea, vomiting, or diarrhea. Currently, no complaints of dizziness. OBJECTIVE: VITAL SIGNS: Temperature 97.5, pulse 62, blood pressure 143/97, respirations 15, oxygen saturation 97%. GENERAL: No acute distress. Supine in bed. Head of bed elevated. LUNGS: Clear to auscultation. Respiratory pattern even and unlabored. HEENT: EOMI. NECK: Supple. CARDIOVASCULAR: Irregularly irregular rhythm. ABDOMEN: Bowel sounds positive. Soft, nontender. EXTREMITIES: No pitting edema. No clubbing, cyanosis, or signs of DVT. NEUROLOGICAL: GCS 14, eye 4, verbal 4, motor 6. DIAGNOSTIC AND LABORATORY DATA: Sodium 139, potassium 5.0, chloride 104, CO2 of 25, BUN 31, creatinine 1.13, estimated GFR greater than 60, glucose 100, hemoglobin A1c 5.6%, calcium 8.5, phosphorus 4.3, magnesium 1.7, total bilirubin 1.0, AST 15, ALT 14, alkaline phosphatase 86, total protein 6.1, albumin 3.2, triglyceride 66, cholesterol 128, LDL 70, HDL 45, TSH 5.46, yesterday lipase was 13. On 04/06/2020, coronavirus PCR was not detected. Blood cultures x2 collected on 04/06/2020, still pending. Imaging/other on 04/06/2020. Echocardiogram, preliminary results show an estimated ejection fraction of 35% to 40%. Bedside swallow evaluation by SPEECH therapy has been ordered and is pending. ASSESSMENT/PLAN: 1. Obstructive right renal calculus (9 mm) with mild hydronephrosis. Urology consulted and will see patient today. Appreciate recommendations. Continue pain control. 2. Aspiration pneumonia, POA. The patient's coronavirus test was negative. Appreciate recommendations from Pulmonology/Critical Care Medicine. Continue azithromycin and Zosyn. As coronavirus test was negative, we will add DuoNeb q.4 hours scheduled. 3. Coronary artery disease and severe atherosclerotic disease, rule out ACS. Thus far cardiac biomarkers negative. Cardiology has been consulted. Continue to monitor cardiac enzymes. 4. Chronic obstructive pulmonary disease without acute exacerbation, currently not on supplemental oxygen. Schedule DuoNebs for pneumonia. 5. Infrarenal abdominal aortic aneurysm (3.3 cm). Cardiology following. 6. New onset atrial fibrillation with RVR, heart rate 142 on admission. Heart rate now well controlled at 62. Per echocardiogram, preliminary results ejection fraction 35% to 40%. 7. Acute on chronic systolic congestive heart failure. Monitor strict intake and output, 430 mL in and 100 mL out documented. 8. Protein-calorie malnutrition with cachexia, BMI of 15.06. Dietitian has been consulted. 9. Prophylaxis, IV Pepcid and SCDs. 10. Inpatient, ICU bed 195, billing code [id number], time spent 35 minutes. Dictated by Holden Hennessy NP Raul Fowler MD HWP/MODL /[id number]
[2020-04-07 13:35] LABS: CREATINE KINASE MB 0.9 ng/mL (0-5.0)
--- NOTE | 2020-04-07 14:00 | NUR ---
Update given to patient's daughter regarding swallow study and MBS. Per daughter, patient has had NG tube before due to stomach ulcer and relays wishes at this time for us to attempt NG tube. Patient informed of daughter's wishes, agrees to try NG tube.
[2020-04-07] MEDS ORDERED: METOPROLOL TART25 MG PO (16:26)
[2020-04-07] MEDS ORDERED: ULTRAM50 MG PO (16:26)
[2020-04-07] MEDS: AMIODARONE HCL 200 MG TAB PO SCH (17:00)
[2020-04-07] MEDS: ENOXAPARIN SOD INJ 40 MG/0.4 ML SYR SC SCH (17:55)
--- NOTE | 2020-04-07 17:57 | NUR ---
NG tube attempted x 2, unsuccessful at this time.
--- NOTE | 2020-04-07 18:23 | NUR ---
Patient noted to put out 200cc urine this shift. Dr Salgado and [facility]ENTATIVE made aware, new orders received and carried out.
[2020-04-07] MEDS ORDERED: FUROSEMIDE INJ 10 MG/ML 2 ML VIAL IV ONE (18:30)
--- NOTE | 2020-04-07 19:00 | NUR ---
Report received. Assumed care. Assessment done. See interventions. On room air with sats 97-99%. IV saline locked.
--- NOTE | 2020-04-07 19:53 | NUR ---
Nutrition Intervention Note RD Recommendation(s) for Physician: The patient meets criteria for unspecified SEVERE protein-calorie malnutrition. -When EN is feasible, rec initiating Jevity 1.2, advance as tolerated to goal rate @ 55ml/hr, 1584kcal, 73g protein, 1065ml water -Rec adding Mehdi 1pkt BID (180kcal, 28g AA) via feeding tube to build lean body mass and heal wounds Plan of Care: RD following, monitoring for tolerance and adequacy, EN recommendation Nutrition reason for involvement: Consult, MST RD Assessment (04/07) 85yo M, who was admitted to ICU for right flank pain and dizziness. CXR resulted emphysema and bilateral opacities in LLL and multifocal PNA. Per [facility] notes, pt with dysphagia for 2+ years; Pt regularly coughs up phlegm/residue after meals. MBS revealed aspiration. RN has attempted to place NGT twice without any success. NPO for now. Visited pt in the room. Pt appears cachectic. Pt lives at home with ; pt reports eating well and cooks at home. (Not sure if pt is a reliable historian?) Pt thinks he might have lost 5-10lb within a month. Pt left his upper denture at home, missing/dental caries on bottom teeth. Pending NGT placement. Communicated POC with RN. Principal Problems/Diagnoses: 1.Obstructive right renal calculus (9 mm) with mild hydronephrosis 2.Aspiration pneumonia 3.Coronary artery disease and severe atherosclerotic disease 4.Acute on chronic systolic congestive heart failure 5.Protein-calorie malnutrition with cachexia, BMI of 15.06 PMH: COPD, CHF, perforated abdominal ulcer, hepatitis C virus, kidney stones, dementia. I/O: +600ml / -200ml GI: abdomen flat, soft, non-tender Skin: suspected DTI on sacrum Labs: (04/07) BUN 31 H Meds: (04/07) lovenox, pepcid Ht: 70in Wt: 105lb BMI: 15.1kg/m2 IBW: 166lb +/- 10% Malnutrition Evaluation (04/07) The patient meets criteria for unspecified SEVERE protein-calorie malnutrition. Energy intake: <50% of estimated energy requirements for >1 month Weight loss: >5% in 1 month (Acute) Fat loss: Severe hollow around orbital area Muscle loss: Severe temporal depression, clavicle protrusion Supporting Evidence: Fluid accumulation: no accumulation identified Functional Status: no changes Nutrition Prescription (Diet Order): NPO Estimated Nutritional Needs: Calories: 1440 1680kcal(30-35kcal/kg CBW) Protein: 58 96g (1.5-2g/kg CBW) Diet Adequacy: Not meeting calorie needs, Not meeting protein needs Tolerance: Tolerance pending Diet Education Needs Assessment: Diet education not indicated; patient is NPO. Nutrition Care Level: high Nutrition Diagnosis: Swallowing difficulty related to aspiration PNA as evidenced by pt requiring EN via NGT. Goal: Patient will meet 75-100% of estimated needs by follow up Progress: N/A Interventions: Commercial food, Composition, Rate, Route, Collaboration with other providers Monitoring/Evaluation: Total energy intake, Total protein intake, Formula/Solution, Weight change Signed: Tori Rincon MS, RD, LD
[2020-04-07] MEDS ORDERED: AZITHROMYCIN 500MG/NS 250 ML 250 ML ONE (21:21)
[2020-04-07] MEDS: AZITHROMYCIN 250MG/NS 100 ML 100 ML IV SCH (21:23)
[2020-04-08] VITALS (25 sets, daily range): BP systolic 123–155; BP diastolic 86–123
[2020-04-08] MEDS: METOPROLOL TARTRATE INJ 1 MG/ML VIAL IV SCH ×4 (00:46→17:09)
[2020-04-08] MEDS: ALBUTEROL/IPRATROPIUM 3 ML NEB NEB SCH ×6 (03:00→22:51)
[2020-04-08 05:54] LABS: BASOPHILS % 0.5 % (0.0-1.0); EOSINOPHILS % 0.2 % (0.0-6.0); HEMATOCRIT 42.2 % (38.2-49.6); HEMOGLOBIN 13.4 g/dL (14.0-18.0); MEAN CORPUSCULAR HEMOGLOBIN 27.9 pg (28-32); MEAN CORPUSCULAR HGB CONC 31.8 g/dL (31-35); MEAN CORPUSCULAR VOLUME 87.9 fL (81-99); MONOCYTES # (AUTO) 0.5 (0.2-0.8); MONOCYTES % 8.5 % (4.4-11.3); NEUTROPHILS # (AUTO) 4.3 (2.1-6.9); NEUTROPHILS % 73.3 % (38.7-80.0); PLATELET COUNT 207 x10e3/uL (140-360); RED CELL DISTRIBUTION WIDTH 15.5 % (11.7-14.4)
[2020-04-08] MEDS: PIPER-TAZ 3.375 GM 50 ML IV SCH ×3 (06:05→22:13)
[2020-04-08 06:19] LABS: ALANINE AMINOTRANSFERASE 16 IU/L (0-55); ALBUMIN 3.5 g/dL (3.5-5.0); ALKALINE PHOSPHATASE 92 IU/L (40-150); ANION GAP 18.1 mmol/L (8-16); BLOOD UREA NITROGEN 28 mg/dL (7-26); BUN/CREATININE RATIO 29 (6-25); CARBON DIOXIDE 25 mmol/L (22-29); CHLORIDE 102 mmol/L (98-107); CREATININE, SERUM 0.97 mg/dL (0.72-1.25); EST GLOMERULAR FILTRATION RATE > 60 ML/MIN (60-); GLUCOSE 74 mg/dL (74-118); POTASSIUM 4.1 mmol/L (3.5-5.1); SODIUM 141 mmol/L (136-145)
[2020-04-08] MEDS: DOCUSATE SODIUM 100 MG CAP PO SCH ×2 (07:32→16:17)
[2020-04-08] MEDS: AMIODARONE HCL 200 MG TAB PO SCH (07:32)
[2020-04-08] MEDS: FAMOTIDINE 20 MG/2 ML VIAL IV SCH ×2 (08:39→17:00)
--- NOTE | 2020-04-08 10:00 | NUR ---
Jair GOMEZ at bedside, notified of continued high blood pressure and intermittent increase in HR. New orders received at this time.
[2020-04-08] MEDS ORDERED: LIDOCAINE HCL 2% JELLY 5 ML TUBE TOP PRN (10:45)
[2020-04-08] MEDS ORDERED: LORAZEPAM INJ 2 MG/ML VIAL IV ONE (10:45)
[2020-04-08] MEDS ORDERED: AMIODARONE 900MG 500 ML IV SCH (11:00)
--- NOTE | 2020-04-08 11:00 | NUR ---
Patient down to fluoroscopy with Dr Salgado and this nurse to insert Dobhoff NG tube. Patient tolerated procedure well, sleepy at this time, no s/s distress noted, no c/o pain. Daughter Matey informed of update, no questions noted. Awaiting XRay results to begin tube feeds.
[2020-04-08] MEDS ORDERED: OXYMETAZOLINE HCL 0.05% NAS 1 SPRAY BTL ONE (11:30)
--- NOTE | 2020-04-08 12:05 | Diagnostic Imaging Report ---
EXAMINATION: ABDOMEN-1VIEW (KUB), CHEST SINGLE (PORTABLE) INDICATION: DOBBHOFF PLACEMENT COMPARISON: CT abdomen/pelvis 04-06-2020 and chest radiograph 04-06-2020. FINDINGS: TUBES and LINES: Dobbhoff tube terminates in the left mid to lower abdomen, and expected location of the distal stomach, compared to prior CT. Distal aspect appears kinked. Guidewire is present. LUNGS: Lungs are hyperinflated. Mild patchy opacities at the lung bases. No evidence of pulmonary edema. Calcified granulomas in the right midlung. PLEURA: No pleural effusion or pneumothorax. HEART AND MEDIASTINUM: The cardiomediastinal silhouette is mildly enlarged. Atherosclerotic calcifications of the aortic arch. Surgical clips overlie the left lower medial hemithorax. BONES AND SOFT TISSUES: No acute osseous lesion. Soft tissues are unremarkable. ABDOMEN/PELVIS: Nonobstructive bowel gas pattern. No evidence of free intraperitoneal air. No free air under the diaphragm. Retained contrast in the colon. IMPRESSION: Dobbhoff tube terminates in the expected position of the distal stomach. Distal aspect appears kinked. Patchy bibasilar opacities, compatible with infectious process or aspiration as noted on prior CT. Signed by: Dr. Nely Jaimes MD on 04/08/2020 12:01 PM
--- NOTE | 2020-04-08 13:38 | Progress Note ---
DATE: Pulmonary Critical Care Progress Note SUBJECTIVE: The patient had more atrial fibrillation this morning. He had to be restarted on IV amiodarone. The patient failed swallowing test yesterday and is at high risk for aspiration. Feeding tube was placed and he will begin enteral feedings. PHYSICAL EXAMINATION: VITAL SIGNS: The blood pressure is 127/90, saturation is 97% on room air, and the pulse is 120 to 125 with irregularly irregular rhythm. HEENT: Shows no facial swelling or erythema. LYMPHATIC: Shows no submandibular, cervical, or supraclavicular adenopathy. CARDIAC: Reveals irregularly irregular rhythm. LUNGS: Auscultation of lungs reveals rhonchorous breath sounds bilaterally. ABDOMEN: Soft and nontender. There is no rebound or guarding. EXTREMITIES: Shows no leg edema or calf tenderness. There is no cyanosis or clubbing. SKIN: Shows no rashes. NEUROLOGICAL: Shows no focal abnormalities. LABORATORY DATA: The white blood cell count is 5.9 and the hemoglobin is 13.4. The platelet count is 207. The BUN to creatinine ratio is 28 to 0.97. The other are electrolytes within normal limits. IMPRESSION: 1. Aspiration pneumonia with sepsis, present on admission. 2. Atrial fibrillation with rapid ventricular response. 3. Moderate protein-calorie malnutrition. 4. Chronic obstructive pulmonary disease. 5. Infrarenal abdominal aortic aneurysm. 6. Chronic renal insufficiency, stage 3. 7. Chronic systolic cardiomyopathy. 8. [id number] systolic congestive heart failure. PLAN: 1. Continue current antibiotics. 2. Begin enteral feedings. 3. Continue IV antibiotics. 4. Continue amiodarone. 5. Diuretics as needed. Sacha Salgado MD [facility]/MODL /[id number]
--- NOTE | 2020-04-08 14:38 | Operative Report ---
DATE OF PROCEDURE: SURGEON: Sacha Salgado MD PROCEDURE: Duodenal feeding tube placement under fluoroscopic guidance. PREOPERATIVE DIAGNOSIS: Moderate protein-calorie malnutrition. POSTOPERATIVE DIAGNOSIS: Moderate protein-calorie malnutrition. CONSENT: Consent was obtained from the . MEDICATIONS: Afrin nasal spray and 2% lidocaine jelly. DESCRIPTION OF PROCEDURE: The patient was placed in a supine position. The left nostril was premedicated with Afrin nasal spray and lidocaine jelly. The head was then flexed forward. A duodenal feeding tube was placed through the left nares and advanced through the oropharynx into the esophagus. Fluoroscopy was then used to visualize the tube. The tube was passed through the esophagus into the stomach and passed the gastroesophageal junction into the stomach. The tube was then passed into the proximal duodenum. COMPLICATIONS: None. ESTIMATED BLOOD LOSS: None. Sacha Salgado MD [facility] /[id number]
--- OUTSIDE RECORDS SUMMARY | 2020-04-08 16:25 | XMS REPORT | Continuity of Care Document ---
Author Author [facility] Organization [facility] Address Unknown Phone Unavailable Care Team Providers Care Top Distribution Executive Name Role Phone [employer]ME[employer] Information Exchange Unavailable Un available Problems Problem Status Onset Date Classification Date Reported Comments Source Pneumonia (disorder) Active 08/10/2016 Problem 08/15/2016 [facility] POSSIBLE PNEUMNIA Active 08/10/2016 [facility] COMMUNITY ACQUIRED PNEUMONIA, HYPOTENSIO Active 08/10/2016 [facility] Chronic obstructive lung disease (disorder) Resolved Problem 08/15/2016 [facility] Malignant tumor of prostate (disorder) Resolved Problem 08/15/2016 [facility] Pulmonary emphysema (disorder) Resolved Problem 09/2016 [facility] PNEUMONIA, UNSPECIFIED ORGANISM Active [facility] HYPOTENSION, UNSPECIFIED Active [facility] SEPSIS, UNSPECIFIED ORGANISM A ctive [facility] Medications Medication Details Route Status Patient Instructions Ordering Provider Order Date Source benzonatate 100 MG Oral Capsule [Tessalon Perles] 100 mg = 1 cap, PO, Q8H, PRN cough, do not crush or chew, X 10 day, # 30 cap, 0 Refill(s), Pharmacy: [facility]/pharmacy #[id number] Active 08/12/2016 [facility] Guaifenesin 20 MG/ML Oral Solution [Robitussin] 200 mg = 10 mL, PO, Q6H, PRN Cough, # 120 mL, 0 Refill(s), Pharmacy: [facility]/pharmacy #[id number] Active 08/12/2016 [facility] 200 ACTUAT Albuterol 0.09 MG/ACTUAT Mete red Dose Inhaler [ProAir HFA] 2 puff, INHALER, Q6H, PRN wheezing, coug jean claude, or shortness of breath, # 1 ea, 0 Refill(s), Pharmacy: [facility]/pharmacy #[id number] Active 08/12/2016 [facility] Levofloxacin 750 MG Oral Tablet [Levaquin] 750 mg = 1 tab, PO, Q24H, X 7 day, # 7 tab, 0 Refill(s), Pharmacy: [facility]/pharmacy #[id number] Active 08/12/2016 [facility] Ceftriaxone Notes: (Same As: Esthela day). Use with 100 mL NS and infuse over 30 min MEDICATION WASTE Product Size: 1000 mg Product Wasted: ___ mg No Longer Active 08/12/2016 [facility] Azithromycin Notes: Take 1 edwin r before or 2 hours after meals. (Same As: Zithromax) No Longer Active 08/12/2016 [facility] Guaifenesin Notes: (Same as: Esthela obitussin) No Longer Active 08/11/2016 [facility] Albuterol 0.833 MG/ML / Ipratropium Brom bipin 0.167 MG/ML Inhalant Solution Notes: (Same as: Duoneb) No Longer Active 08/11/2016 [facility] sodium chloride 0.9% 1000 ml INJ 1,000 mL 1,000 mL, Rate: 125 ml/hr, Infuse over: 8 hr, Route: IV, Dosing Weight 50 kg, Total Volume: 1,000, Start date: 08/10/16 23:55:00 PILOT BOAT DECKHAND, Duration: 30 day, Stop date: 09/09/16 23:54:00 PILOT BOAT DECKHAND No Longe r Active 08/11/2016 [facility] Albuterol 0.833 MG/ML / Ipratropium Brom bipin 0.167 MG/ML Inhalant Solution [DuoNeb] Notes: (Same as: Duoneb) No Longer Active 08/11/2016 [facility] Azithromycin Notes: (Same As: Zithromax IV) Inactive 08/10/2016 [facility] Ceftriaxone Notes: (Same As: Esthela day). Use with 100 mL NS and infuse over 30 min MEDICATION WASTE Product Size: 1000 mg Product Wasted: ___ mg Inactive 08/10/2016 [facility] Saline Flush 0.9% Notes: Same as: BD Posiflush Sterile No Longer Active 08/10/2016 [facility] Calcium Chloride 0.0014 MEQ/ML / Potassi um Chloride 0.004 MEQ/ML / Sodium Chloride 0.103 MEQ/ML / Sodium Lactate 0.028 MEQ/ML Injectable Solution 2,100 mL, 1909.09 ml/hr, Infuse Over: 1. 1 hr, Route: IV, 2,100, Drug form: INJ, ONCE, Priority: STAT, kg, Start date: 08/10/16 17:47:00 PILOT BOAT DECKHAND, Duration: 1 doses or times, Stop date: 08/10/16 17:47:00 PILOT BOAT DECKHAND Inactive 08/10/2016 [facility] Allergies, Adverse Reactions, Alerts No Known Medication Allergies Immunizations No Data Provided for This Section Results Order Name Results Value Reference Range Date Interpretation Comments Source ELECTROLYTES AGAP 10.8 10.0 - 20.0 08/12/2016 [facility] ELECTROLYTES eGFR 90 08/12/2016 Result Comment: The eGFR is calculated using the CKD-EPI formula. In most young, healthy individuals the eGFR will be >90 mL/min/1.73m2. The eGFR declines with age. An eGFR of 60-89 may be normal in some populations, particularly the elderly, for whom the CKD-EPI formula has not been extensively validated. Use of the eGFR is not recommended in the following populations:

Individuals with unstable creatinine concentrations, including patients and those with serious co-morbid conditions.

Patients with extremes in muscle mass or diet.

The data above are obtained from the National Kidney Disease Education Program (NKDEP) which additionally recommends that when the eGFR is used in patients with extremes of body mass index for purposes of drug dosing, the eGFR should be multiplied by the estimated BMI. [facility] ELECTROLYTES Creatinine Lvl 0.6 7 0.50 - 1.40 08/12/2016 [facility] ELECTROLYTES Sodium Lvl 138 135 - 145 08/12/2016 [facility] ELECTROLYTES CO2 26 24 - 32 08/12/2016 [facility] ELECTROLYTES Calcium Lvl 7.4 8.5 - 10.5 08/12/2016 [facility] ELECTROLYTES Glucose Lvl 95 70 - 99 08/12/2016 [facility] ELECTROLYTES BUN 19 7 - 22 08/12/2016 [facility] ELECTROLYTES Chloride Lvl 105 95 - 109 08/12/2016 [facility] ELECTROLYTES Potassium Lvl 3.8 3.5 - 5.1 08/12/2016 [facility] HEMATOLOGY MPV 9.0 7.4 - 10.4 08/12/2016 [facility] HEMATOLOGY Platelet 125 133 - 450 08/12/2016 [facility] HEMATOLOGY MCHC 33.7 32.0 - 36.0 08/12/2016 [facility] HEMATOLOGY RDW 14.9 11.5 - 14.5 08/12/2016 [facility] HEMATOLOGY MCH 29.2 27.0 - 31.0 08/12/2016 [facility] HEMATOLOGY MCV 86.4 80.0 - 94.0 08/12/2016 [facility] HEMATOLOGY Hct 32.6 42.0 - 54.0 08/12/2016 [facility] HEMATOLOGY RBC 3.77 4.70 - 6.10 08/12/2016 [facility] HEMATOLOGY Hgb 11.0 14.0 - 18.0 08/12/2016 [facility] HEMATOLOGY WBC 4.1 3.7 - 10.4 08/12/2016 [facility] CHEM PANEL Lactic Acid Lvl 1.3 0.5 - 2.2 08/11/2016 [facility] URINE AND STOOL UA Mucus Rare /LPF None Seen /LPF 08/11/2016 [facility] URINE AND STOOL UA Bacteria None Seen (08/10/16 9:24 PM) None Seen 08/11/2016 [facility] URINE AND STOOL UA Protein Trace *ABN* (08/10/16 9:24 PM) Negative 08/11/2016 [facility] URINE AND STOOL UA pH 6.0 5.0 - 8.0 08/11/2016 [facility] URINE AND STOOL UA Spec Grav 1.025 <=1.030 08/11/2016 [facility] URINE AND STOOL UA Turbidity Clear (08/10/16 9:24 PM) Clear 08/11/2016 [facility] URINE AND STOOL UA Color Yellow *NA* (08/10/16 9:24 PM) Yellow 08/11/2016 [facility] URINE AND STOOL UA RBC 0-2 /HPF 0 - 2 08/11/2016 [facility] URINE AND STOOL UA Glucose Negative (08/10/16 9:24 PM) Negative 08/11/2016 [facility] URINE AND STOOL UA Sq Epi Rare /LPF Few /LPF 08/11/2016 [facility] URINE AND STOOL UA WBC 0-2 /HPF None Seen /HPF 08/11/2016 [facility] URINE AND STOOL UA Nitrite Negative (08/10/16 9:24 PM) Negative 08/11/2016 [facility] URINE AND STOOL UA Leuk Est Negative (08/10/16 9:24 PM) Negative 08/11/2016 [facility] URINE AND STOOL UA Urobilinogen 0.2 0.1 - 1.0 08/11/2016 [facility] URINE AND STOOL UA Bili Negative *NA* (08/10/16 9:24 PM) Negative 08/11/2016 [facility] URINE AND STOOL UA Blood Trace *ABN* (08/10/16 9:24 PM) Negative 08/11/2016 [facility] URINE AND STOOL UA Ketones Negative *NA* (08/10/16 9:24 PM) Negative 08/11/2016 [facility] VIRAL - SEROLOGY Influ A Negative (08/10/16 7:41 PM) Negative 08/11/2016 [facility] VIRAL - SEROLOGY Influ B Negative (08/10/16 7:41 PM) Negative 08/11/2016 [facility] CARDIAC ENZYMES Troponin-I <0.02 0.00 - 0.40 08/11/2016 [facility] CARDIAC ENZYMES CK MB 1.3 0.5 - 3.6 08/11/2016 [facility] CARDIAC ENZYMES Total CK 63 12 - 191 08/11/2016 [facility] CARDIAC ENZYMES CK MB Index 2.1 0.0 - 2.5 08/11/2016 [facility] CHEM PANEL Procalcitonin Lvl <0.05 ng/mL 0.00 - 0.10 08/11/2016 [facility] CHEM PANEL Lactic Acid Lvl 1.4 0.5 - 2.2 08/11/2016 [facility] CHEM PANEL eGFR 61 08/11/2016 Result Comment: The eGFR is calculated using the CKD-EPI formula. In most young, healthy individuals the eGFR will be >90 mL/min/1.73m2. The eGFR declines with age. An eGFR of 60-89 may be normal in some populations, particularly the elderly, for whom the CKD-EPI formula has not been extensively validated. Use of the eGFR is not recommended in the following populations:

Individuals with unstable creatinine concentrations, including patients and those with serious co-morbid conditions.

Patients with extremes in muscle mass or diet.

The data above are obtained from the National Kidney Disease Education Program (NKDEP) which additionally recommends that when the eGFR is used in patients with extremes of body mass index for purposes of drug dosing, the eGFR should be multiplied by the estimated BMI. [facility] CHEM PANEL Chloride Lvl 102 95 - 109 08/11/2016 [facility] CHEM PANEL Sodium Lvl 136 135 - 145 08/11/2016 [facility] CHEM PANEL Potassium Lvl 4.0 3.5 - 5.1 08/11/2016 [facility] CHEM PANEL Glucose Lvl 145 70 - 99 08/11/2016 [facility] CHEM PANEL Creatinine Lvl 1.12 0.50 - 1.40 08/11/2016 [facility] CHEM PANEL BUN 25 7 - 22 08/11/2016 [facility] CHEM PANEL Calcium Lvl 8.8 8.5 - 10.5 08/11/2016 [facility] CHEM PANEL Total Protein 8.1 6.4 - 8.4 08/11/2016 [facility] CHEM PANEL CO2 27 24 - 32 08/11/2016 [facility] CHEM PANEL Albumin Lvl 3.8 3.5 - 5.0 08/11/2016 [facility] CHEM PANEL Bili Total 1.0 0.2 - 1.3 08/11/2016 [facility] CHEM PANEL AST 34 0 - 37 08/11/2016 [facility] CHEM PANEL Alk Phos 86 39 - 136 08/11/2016 [facility] CHEM PANEL ALT 44 0 - 65 08/11/2016 [facility] CHEM PANEL AGAP 11.0 10.0 - 20.0 08/11/2016 [facility] CHEM PANEL A/G Ratio 0.9 0.7 - 1.6 08/11/2016 [facility] CHEM PANEL Globulin 4.3 2.7 - 4.2 08/11/2016 [facility] CHEM PANEL B/C Ratio 22 6 - 25 08/11/2016 [facility] HEMATOLOGY PTT 34.8 22.9 - 35.8 08/11/2016 [facility] HEMATOLOGY PT 13.6 12.0 - 14.7 08/11/2016 [facility] HEMATOLOGY INR 1.02 0.85 - 1.17 08/11/2016 [facility] HEMATOLOGY MCH 28.4 27.0 - 31.0 08/11/2016 [facility] HEMATOLOGY MCHC 32.6 32.0 - 36.0 08/11/2016 [facility] HEMATOLOGY RDW 15.4 11.5 - 14.5 08/11/2016 [facility] HEMATOLOGY Platelet 187 133 - 450 08/11/2016 [facility] HEMATOLOGY MCV 87.0 80.0 - 94.0 08/11/2016 [facility] HEMATOLOGY Hgb 14.0 14.0 - 18.0 08/11/2016 [facility] HEMATOLOGY Hct 42.9 42.0 - 54.0 08/11/2016 [facility] HEMATOLOGY MPV 8.8 7.4 - 10.4 08/11/2016 [facility] HEMATOLOGY RBC 4.93 4.70 - 6.10 08/11/2016 [facility] HEMATOLOGY WBC 8.9 3.7 - 10.4 08/11/2016 [facility] HEMATOLOGY Basophils 0.3 0.0 - 1.0 08/11/2016 [facility] HEMATOLOGY Segs-Bands # 7.8 1.5 - 8.1 08/11/2016 [facility] HEMATOLOGY Lymphocytes # 0.5 1.0 - 5.5 08/11/2016 [facility] HEMATOLOGY Monocytes # 0.5 0.0 - 0.8 08/11/2016 [facility] HEMATOLOGY Segs 87.7 45.0 - 75.0 08/11/2016 [facility] HEMATOLOGY Monocytes 5.9 2.0 - 12.0 08/11/2016 [facility] HEMATOLOGY Lymphocytes 6.0 20.0 - 40.0 08/11/2016 [facility] HEMATOLOGY Eosinophils 0.1 0.0 - 4.0 08/11/2016 [facility] Pathology Reports No Data Provided for This Section Diagnostic Reports Report Value Date Source Chest 1view DX Clinical Indica tion:81 years Male with Fever Comparison: None FINDINGS: Lines: None. The single frontal chest radiograph shows increased lung volumes. Increased interstitial markings, primarily of the lung bases. Superimposed right basilar airspace opacity. Right upper lobe calcified granuloma. No pleural effusion. No pneumothorax. Cardiac silhouette is normal. Surgical clips overlie the lower chest and upper abdomen. Pulmonary vasculature is normal. The trachea is midline. There are no acute osseous abnormalities noted. IMPRESSION: Emphysematous changes of the lungs with probable scarring of the lung bases. Superimposed right basilar pneumonia is a possibility. 08/10/2016 [facility] Consultation Notes No Data Provided for This Section Discharge Summaries No Data Provided for This Section History and Physicals No Data Provided for This Section Vital Signs Vital Sign Value Date Comments Source Temperature Oral (F) 98.2 F 08/12/2016 [facility] Heart Rate 80 08/12/2016 [facility] Systolic (mm Hg) 107 08/12/2016 [facility] Diastolic (mm Hg) 71 08/12/2016 [facility] Respitory Rate 20 08/12/2016 [facility] Temperature Oral (F) 98.6 F 08/12/2016 [facility] Heart Rate 82 08/12/2016 [facility] Systolic (mm Hg) 147 08/12/2016 [facility] Diastolic (mm Hg) 86 08/12/2016 [facility] Respitory Rate 20 08/12/2016 [facility] Systolic (mm Hg) 145 08/12/2016 [facility] Diastolic (mm Hg) 70 08/12/2016 [facility] Respitory Rate 20 08/12/2016 [facility] Temperature Oral (F) 98.1 F 08/12/2016 [facility] Heart Rate 85 08/12/2016 [facility] Weight 50 0 08/10/2016 [facility] Height 177.8 cm 08/10/2016 [facility] BMI Calculated 15.82 08/10/2016 [facility] Encounters Location Location Details Encounter Type Encounter Number Reason For Visit Attending Provider ADM Date DC Date Status Source [facility] Inpatient [id number] Brittney Perkins 08/10/2016 08/12/2016 [facility] Procedures No Data Provided for This Section Assessment and Plan No Data Provided for This Section Plan of Care No Data Provided for This Section Social History Social History Date Source Social History TypeResponse Smoking Status Former smoker; Ready to change: No; Concerns about tobacco use in household: No; Exposure to Tobacco Smoke None; Cigarette Smoking Last 365 Days No; Reg Smoking Cessation Counseling No 08/11/2016 [facility] Family History No Data Provided for This Section Advance Directives No Data Provided for This Section Functional Status No Data Provided for This Section
--- OUTSIDE RECORDS SUMMARY | 2020-04-08 16:26 | XMS REPORT | Continuity of Care Document ---
Author Author [employer] Organization [employer] Address Unknown Phone Unavailable Care Team Providers Care Rehabilitation Counselor Name Role Phone [employer] Unavailable Un available Problems Problem Status Onset Date Classification Date Reported Comments Source Pneumonia (disorder) Active 08/10/2016 Problem 08/15/2016 [facility] POSSIBLE PNEUMNIA Active 08/10/2016 [facility] COMMUNITY ACQUIRED PNEUMONIA, HYPOTENSIO Active 08/10/2016 [facility] Chronic obstructive lung disease (disorder) Resolved Problem 08/15/2016 [facility] Malignant tumor of prostate (disorder) Resolved Problem 08/15/2016 [facility] Pulmonary emphysema (disorder) Resolved Problem 09/2016 [facility] PNEUMONIA, UNSPECIFIED ORGANISM Active [facility] HYPOTENSION, UNSPECIFIED Active [facility] SEPSIS, UNSPECIFIED ORGANISM A ctive [facility] Medications Medication Details Route Status Patient Instructions Ordering Provider Order Date Source benzonatate 100 MG Oral Capsule [Tessalon Perles] 100 mg = 1 cap, PO, Q8H, PRN cough, do not crush or chew, X 10 day, # 30 cap, 0 Refill(s), Pharmacy: [facility]/pharmacy #[id number] Active 08/12/2016 [facility] Guaifenesin 20 MG/ML Oral Solution [Robitussin] 200 mg = 10 mL, PO, Q6H, PRN Cough, # 120 mL, 0 Refill(s), Pharmacy: [facility]/pharmacy #[id number] Active 08/12/2016 [facility] 200 ACTUAT Albuterol 0.09 MG/ACTUAT Mete red Dose Inhaler [ProAir HFA] 2 puff, INHALER, Q6H, PRN wheezing, coug jean claude, or shortness of breath, # 1 ea, 0 Refill(s), Pharmacy: [facility]/pharmacy #[id number] Active 08/12/2016 [facility] Levofloxacin 750 MG Oral Tablet [Levaquin] 750 mg = 1 tab, PO, Q24H, X 7 day, # 7 tab, 0 Refill(s), Pharmacy: [facility]/pharmacy #[id number] Active 08/12/2016 [facility] [...] Total Volume: 1,000, Start date: 08/10/16 23:55:00 SET UP OPERATOR TOOL, Duration: 30 day, Stop date: 09/09/16 23:54:00 SET UP OPERATOR TOOL No Longe r Active 08/11/2016 [facility] [...] Priority: STAT, kg, Start date: 08/10/16 17:47:00 SET UP OPERATOR TOOL, Duration: 1 doses or times, Stop date: 08/10/16 17:47:00 SET UP OPERATOR TOOL Inactive 08/10/2016 [facility] Allergies, Adverse Reactions, Alerts No Known Medication Allergies Immunizations No Data Provided for This Section Results Order Name Results Value Reference Range Date Interpretation Comments Source ELECTROLYTES AGAP 10.8 10.0 - 20.0 08/12/2016 [facility] ELECTROLYTES eGFR 90 08/12/2016 Result [...] should be multiplied by the estimated BMI. [facility] ELECTROLYTES Creatinine Lvl 0.6 7 0.50 - 1.40 08/12/2016 [facility] ELECTROLYTES Sodium Lvl 138 135 - 145 08/12/2016 [facility] ELECTROLYTES CO2 26 24 - 32 08/12/2016 [facility] ELECTROLYTES Calcium Lvl 7.4 8.5 - 10.5 08/12/2016 [facility] ELECTROLYTES Glucose Lvl 95 70 - 99 08/12/2016 [facility] ELECTROLYTES BUN 19 7 - 22 08/12/2016 [facility] ELECTROLYTES Chloride Lvl 105 95 - 109 08/12/2016 [facility] ELECTROLYTES Potassium Lvl 3.8 3.5 - 5.1 08/12/2016 [facility] HEMATOLOGY MPV 9.0 7.4 - 10.4 08/12/2016 [facility] HEMATOLOGY Platelet 125 133 - 450 08/12/2016 [facility] HEMATOLOGY MCHC 33.7 32.0 - 36.0 08/12/2016 [facility] HEMATOLOGY RDW 14.9 11.5 - 14.5 08/12/2016 [facility] HEMATOLOGY MCH 29.2 27.0 - 31.0 08/12/2016 [facility] HEMATOLOGY MCV 86.4 80.0 - 94.0 08/12/2016 [facility] HEMATOLOGY Hct 32.6 42.0 - 54.0 08/12/2016 [facility] HEMATOLOGY RBC 3.77 4.70 - 6.10 08/12/2016 [facility] HEMATOLOGY Hgb 11.0 14.0 - 18.0 08/12/2016 [facility] HEMATOLOGY WBC 4.1 3.7 - 10.4 08/12/2016 [facility] CHEM PANEL Lactic Acid Lvl 1.3 0.5 - 2.2 08/11/2016 [facility] URINE AND STOOL UA Mucus Rare /LPF None Seen /LPF 08/11/2016 [facility] URINE AND STOOL UA Bacteria None Seen (08/10/16 9:24 PM) None Seen 08/11/2016 [facility] URINE AND STOOL UA Protein Trace *ABN* (08/10/16 9:24 PM) Negative 08/11/2016 [facility] URINE AND STOOL UA pH 6.0 5.0 - 8.0 08/11/2016 [facility] URINE AND STOOL UA Spec Grav 1.025 <=1.030 08/11/2016 [facility] URINE AND STOOL UA Turbidity Clear (08/10/16 9:24 PM) Clear 08/11/2016 [facility] URINE AND STOOL UA Color Yellow *NA* (08/10/16 9:24 PM) Yellow 08/11/2016 [facility] URINE AND STOOL UA RBC 0-2 /HPF 0 - 2 08/11/2016 [facility] URINE AND STOOL UA Glucose Negative (08/10/16 9:24 PM) Negative 08/11/2016 [facility] URINE AND STOOL UA Sq Epi Rare /LPF Few /LPF 08/11/2016 [facility] URINE AND STOOL UA WBC 0-2 /HPF None Seen /HPF 08/11/2016 [facility] URINE AND STOOL UA Nitrite Negative (08/10/16 9:24 PM) Negative 08/11/2016 [facility] URINE AND STOOL UA Leuk Est Negative (08/10/16 9:24 PM) Negative 08/11/2016 [facility] URINE AND STOOL UA Urobilinogen 0.2 0.1 - 1.0 08/11/2016 [facility] URINE AND STOOL UA Bili Negative *NA* (08/10/16 9:24 PM) Negative 08/11/2016 [facility] URINE AND STOOL UA Blood Trace *ABN* (08/10/16 9:24 PM) Negative 08/11/2016 [facility] URINE AND STOOL UA Ketones Negative *NA* (08/10/16 9:24 PM) Negative 08/11/2016 [facility] VIRAL - SEROLOGY Influ A Negative (08/10/16 7:41 PM) Negative 08/11/2016 [facility] VIRAL - SEROLOGY Influ B Negative (08/10/16 7:41 PM) Negative 08/11/2016 [facility] CARDIAC ENZYMES Troponin-I <0.02 0.00 - 0.40 08/11/2016 [facility] CARDIAC ENZYMES CK MB 1.3 0.5 - 3.6 08/11/2016 [facility] CARDIAC ENZYMES Total CK 63 12 - 191 08/11/2016 [facility] CARDIAC ENZYMES CK MB Index 2.1 0.0 - 2.5 08/11/2016 [facility] CHEM PANEL Procalcitonin Lvl <0.05 ng/mL 0.00 - 0.10 08/11/2016 [facility] CHEM PANEL Lactic Acid Lvl 1.4 0.5 - 2.2 08/11/2016 [facility] CHEM PANEL eGFR 61 08/11/2016 [...] should be multiplied by the estimated BMI. [facility] CHEM PANEL Chloride Lvl 102 95 - 109 08/11/2016 [facility] CHEM PANEL Sodium Lvl 136 135 - 145 08/11/2016 [facility] CHEM PANEL Potassium Lvl 4.0 3.5 - 5.1 08/11/2016 [facility] CHEM PANEL Glucose Lvl 145 70 - 99 08/11/2016 [facility] CHEM PANEL Creatinine Lvl 1.12 0.50 - 1.40 08/11/2016 [facility] CHEM PANEL BUN 25 7 - 22 08/11/2016 [facility] CHEM PANEL Calcium Lvl 8.8 8.5 - 10.5 08/11/2016 [facility] CHEM PANEL Total Protein 8.1 6.4 - 8.4 08/11/2016 [facility] CHEM PANEL CO2 27 24 - 32 08/11/2016 [facility] CHEM PANEL Albumin Lvl 3.8 3.5 - 5.0 08/11/2016 [facility] CHEM PANEL Bili Total 1.0 0.2 - 1.3 08/11/2016 [facility] CHEM PANEL AST 34 0 - 37 08/11/2016 [facility] CHEM PANEL Alk Phos 86 39 - 136 08/11/2016 [facility] CHEM PANEL ALT 44 0 - 65 08/11/2016 [facility] CHEM PANEL AGAP 11.0 10.0 - 20.0 08/11/2016 [facility] CHEM PANEL A/G Ratio 0.9 0.7 - 1.6 08/11/2016 [facility] CHEM PANEL Globulin 4.3 2.7 - 4.2 08/11/2016 [facility] CHEM PANEL B/C Ratio 22 6 - 25 08/11/2016 [facility] HEMATOLOGY PTT 34.8 22.9 - 35.8 08/11/2016 [facility] HEMATOLOGY PT 13.6 12.0 - 14.7 08/11/2016 [facility] HEMATOLOGY INR 1.02 0.85 - 1.17 08/11/2016 [facility] HEMATOLOGY MCH 28.4 27.0 - 31.0 08/11/2016 [facility] HEMATOLOGY MCHC 32.6 32.0 - 36.0 08/11/2016 [facility] HEMATOLOGY RDW 15.4 11.5 - 14.5 08/11/2016 [facility] HEMATOLOGY Platelet 187 133 - 450 08/11/2016 [facility] HEMATOLOGY MCV 87.0 80.0 - 94.0 08/11/2016 [facility] HEMATOLOGY Hgb 14.0 14.0 - 18.0 08/11/2016 [facility] HEMATOLOGY Hct 42.9 42.0 - 54.0 08/11/2016 [facility] HEMATOLOGY MPV 8.8 7.4 - 10.4 08/11/2016 [facility] HEMATOLOGY RBC 4.93 4.70 - 6.10 08/11/2016 [facility] HEMATOLOGY WBC 8.9 3.7 - 10.4 08/11/2016 [facility] HEMATOLOGY Basophils 0.3 0.0 - 1.0 08/11/2016 [facility] HEMATOLOGY Segs-Bands # 7.8 1.5 - 8.1 08/11/2016 [facility] HEMATOLOGY Lymphocytes # 0.5 1.0 - 5.5 08/11/2016 [facility] HEMATOLOGY Monocytes # 0.5 0.0 - 0.8 08/11/2016 [facility] HEMATOLOGY Segs 87.7 45.0 - 75.0 08/11/2016 [facility] HEMATOLOGY Monocytes 5.9 2.0 - 12.0 08/11/2016 [facility] HEMATOLOGY Lymphocytes 6.0 20.0 - 40.0 08/11/2016 [facility] HEMATOLOGY Eosinophils 0.1 0.0 - 4.0 08/11/2016 [facility] Pathology Reports No Data Provided [...] right basilar pneumonia is a possibility. 08/10/2016 [facility] Consultation Notes No Data Provided for This Section Discharge Summaries No Data Provided for This Section History and Physicals No Data Provided for This Section Vital Signs Vital Sign Value Date Comments Source Temperature Oral (F) 98.2 F 08/12/2016 [facility] Heart Rate 80 08/12/2016 [facility] Systolic (mm Hg) 107 08/12/2016 [...] [place] Respitory Rate 20 08/12/[address] [facility] Temperature Oral (F) 98.1 F 08/12/[address] [facility] Heart Rate 85 08/12/[address] [facility] Weight 50 0 08/10/[address] [facility] Height 177.8 cm 08/10/[address] [facility] BMI Calculated 15.82 08/10/[address] [facility] Encounters Location Location Details Encounter Type Encounter Number Reason For Visit Attending Provider ADM Date DC Date Status Source [facility] Inpatient [id number] Brittney Perkins 08/10/2016 08/12/2016 [facility] Procedures No Data Provided for [...] No; Reg Smoking Cessation Counseling No 08/11/2016 [facility] Family History No Data Provided for This Section Advance Directives No Data Provided for This Section Functional Status No Data Provided for This Section
--- OUTSIDE RECORDS SUMMARY | 2020-04-08 16:26 | XMS REPORT | Continuity of Care Document ---
Author Author [facility] t Organization [facility] Address [address] [place] [address] Phone Unavailable Care Team Providers Care Senior Bookkeeper Name Role Phone EVIAUBREY PARKALD Attphys Unavailable Egwaikhide, Ohigbai Attphys CORNEL HERNÁNDEZ Admphys Unavailable Egwaikhide, Ohigbai Admphys Payers Payer Name Policy Type Policy Number Effective Date Expiration Date S ource Problems Condition Name Condition Details Condition Category Status Onset Date Resolution Date Last Treatment Date Treating Clinician Comments Source Pneumonia (disorder) Pneu monia (disorder) Active 08/10/2016 Problem 08/15/2016 [facility] Problem Active 2016-08-10 00:0 0:00 2016-08-15 03:31:42 Abdi Cruz POSSIBLE PNEUMNIA POSS IBLE PNEUMNIA Active 08/10/2016 [facility] Diagnosis Active 2016-08-10 00:00:00 2016-08-10 19:57:00 Abdi Cruz COMMUNITY ACQUIRED PNEUMONIA, HYPOTENSIO COMMUNITY ACQUIRED PNEUMONIA, HYPOTENSIO Active 08/10/2016 [facility] Diagnosis Active 2016-08-10 00:00:00 2016-08-12 15:55:00 Abdi Cruz Chronic obstructive lung disease (disorder) Chronic obstructive lung disease (disorder) Resolved Problem 08/15/2016 [facility] Problem Resolved 2016-08-15 03:31:42 Karyn Cruz Malignant tumor of prostate (disorder) Malignant tumor of prostate (disorder) Resolved Problem 08/15/2016 [facility] Problem Resolved 2016-08-15 03:31:42 Shaan Cruz Pulmonary emphysema (disorder) Pulmonary emphysema (disorder) Resolved Problem 08/15/2016 [facility] Problem Resolved 2016-08-15 03:31:42 Abdi Cruz PNEUMONIA, UNSPECIFIED ORGANISM PNEUMONIA, UNSPECIFIED ORGANISM Active [facility] Diagnosis Active 2016 15:55:00 [facility] HYPOTENSION, UNSPECIFIED HYPO TENSION, UNSPECIFIED Active [facility] Diagnosis Active 2016-08-12 15:55:00 [facility] SEPSIS, UNSPECIFIED ORGANISM S EPSIS, UNSPECIFIED ORGANISM Active [facility] Diagnosis Active 2016 15:55:00 [facility] Allergies, Adverse Reactions, Alerts Allergy Name Allergy Type Status Severity Reaction(s) Onset Date Inacti ve Date Treating Clinician Comments Source No Known Allergies DA Active U 2016-12-15 00:00:00 [facility] Social History Smoking Status Start Date Stop Date Source Social History 2016-08-11 00:29:46 2016-08-11 00:29:46 [facility] Medications Ordered Medication Name Filled Medication Name Start Date Stop Da te Current Medication? Ordering Clinician Indication Dosage Frequency Signature (SIG) Comments Components Source benzonatate 100 MG Oral Capsule [Tessalon Perles] 2016-08-12 17:00:00 Yes 100 mg = 1 cap, PO, Q8H, PRN cough, do not crush or chew, X 10 day, # 30 cap, 0 Refill(s), Pharmacy: [facility]/pharmacy #[id number] [facility] Guaifenesin 20 MG/ML Oral Solution [Robitussin] 2016-08-12 17:00 :00 Yes 200 mg = 10 mL, PO, Q6H, PRN Cough, # 120 mL, 0 Refill(s), Pharmacy: [facility]/pharmacy #[id number] [facility] 200 ACTUAT Albuterol 0.09 MG/ACTUAT Metered Dose Inhaler [Pr oAir HFA] 2016-08-12 17:00:00 Yes 2 puff, INHALER, Q6H, PRN wheezing, coughing, or shortness of breath, # 1 ea, 0 Refill(s), Pharmacy: [facility]/pharmacy #[id number] [facility] Levofloxacin 750 MG Oral Tablet [Levaquin] 2016-08-12 17:00:00 Yes 750 mg = 1 tab, PO, Q24H, X 7 day, # 7 tab, 0 Refill(s), Pharmacy: [facility]/pharmacy #[id number] Abdi Cruz Ceftriaxone 2016-08-12 02:00:00 No Notes: (Same As: Rocephin). Use with 100 mL NS and infuse over 30 min MEDICATION WASTE Product Size: 1000 mg Product Wasted: ___ mg Abdi Cruz Azithromycin 2016-08-12 00:00:00 No Notes: Take 1 hour before or 2 hours after meals. (Same As: Zithromax) [facility] Guaifenesin 2016-08-11 05:55:00 No Notes: ( Same as: Robitussin) [facility] Albuterol 0.833 MG/ML / Ipratropium [place] 0.167 MG/ML Inha lant Solution 2016-08-11 05:55:00 No Notes: (Same as: D carlosb) [facility] Anthony sodium chloride 0.9% 1000 ml INJ 1,000 mL 2016-08-11 05:55:00 No 1,000 mL, Rate: 125 ml/hr, Infuse over: 8 hr, Route: IV, Dosing Weight 50 kg, Total Volume: 1,000, Start date: 08/10/16 23:55:00 BOX NAILER, Duration: 30 day, Stop date: 09/09/16 23:54:00 BOX NAILER [facility] simmons Albuterol 0.833 MG/ML / Ipratropium Brom bipin 0.167 MG/ML Inhalant Solution [DuoNeb] 2016-08-11 00:23:00 No Notes: (S edda as: Duoneb) [facility] Azithromycin 2016-08-10 23:47:00 No Notes: (Same As: Zithromax IV) [facility] Ceftriaxone 2016-08-10 23:47:00 No Notes: (Same As: Rocephin). Use with 100 mL NS and infuse over 30 min MEDICATION WASTE Product Size: 1000 mg Product Wasted: ___ mg [facility] Saline Flush 0.9% 2016-08-10 23:47:00 No Notes: Same as: BD Posiflush Sterile [facility] Calcium Chloride 0.0014 MEQ/ML / Potassi um Chloride 0.004 MEQ/ML / Sodium Chloride 0.103 MEQ/ML / Sodium Lactate 0.028 MEQ/ML Injectable Solution 2016-08-10 23:47:00 No 2,100 mL, 1909.09 ml/hr, Infuse Over: 1.1 hr, Route: IV, 2,100, Drug form: INJ, ONCE, Priority: STAT, kg, Start date: 08/10/16 17:47:00 BOX NAILER, Duration: 1 doses or times, Stop date: 08/10/16 17:47:00 BOX NAILER [facility] Vital Signs Vital Name Observation Time Observation Value Comments Source Temperature Oral (F) 2016-08-12 18:30:00 98.2 F [facility] Heart Rate 2016-08-12 18:30:00 [facility] Systolic (mm Hg) 2016-08-12 18:30:00 [facility] Diastolic (mm Hg) 2016-08-12 18:30:00 [facility] Respitory Rate 2016-08-12 18:30:00 [facility] Temperature Oral (F) 2016-08-12 14:31:00 98.6 F [facility] Heart Rate 2016-08-12 14:31:00 [facility] Systolic (mm Hg) 2016-08-12 14:31:00 [facility] Diastolic (mm Hg) 2016-08-12 14:31:00 [facility] Respitory Rate 2016-08-12 14:31:00 [facility] Systolic (mm Hg) 2016-08-12 10:16:00 [facility] Diastolic (mm Hg) 2016-08-12 10:16:00 [facility] Respitory Rate 2016-08-12 10:16:00 [facility] Temperature Oral (F) 2016-08-12 10:16:00 98.1 F [facility] Heart Rate 2016-08-12 10:16:00 [facility] Weight 2016-08-10 23:40:00 [facility] Height 2016-08-10 23:40:00 177.8 cm [facility] BMI Calculated 2016-08-10 23:40:00 [facility] Procedures This patient has no known procedures. Encounters Start Date/Time End Date/Time [facility] Source 2016-08-10 17:22:00 2016-08-12 14:52:00 [facility] [id number] Results Test Description Test Time Test Comments Results Result Comments Source CHEST SINGLE (PORTABLE) 2020-04-08 11:53:00 [facility] [address] [address] Patient Name: LOUIE JOHNSTON MR #: [id number] : 1935 Age/Sex: 85/M Req #: [id number] Adm Physician: CORNEL HERNÁNDEZ MD Ordered by: CHANTE WYNN MD Report #: [id number] Location: ICU Room/Bed: ICU [facility] Procedure: [id number] DX/CHEST SINGLE (PORTABLE) Exam Date: Exam Time: REPORT STATUS: Signed EXAMINATION: ABDOMEN-1VIEW (KUB), CHEST SINGLE (PORTABLE) INDICATION: DOBBHOFF PLACEMENT COMPARISON: CT abdomen/pelvis 04-06-2020 and chest radiograph 04-06-2020. FINDINGS: TUBES and LINES: Dobbhoff tube terminates in the left mid to lower abdomen, and expected location of the distal stomach, compared to prior CT. Distal aspect appears kinked. Guidewire is present. LUNGS: Lungs are hyperinflated. Mild patchy opacities at the lung bases. No evidence of pulmonary edema. Calcified granulomas in the right midlung. PLEURA: No pleural effusion or pneumothorax. HEART AND MEDIASTINUM: The cardiomediastinal silhouette is mildly enlarged. Atherosclerotic calcifications of the aortic arch. Surgical clips overlie the left lower medial hemithorax. BONES AND SOFT TISSUES: No acute osseous lesion. Soft tissues are unremarkable. ABDOMEN/PELVIS: Nonobstructive bowel gas pattern. No evidence of free intraperitoneal air. No free air under the diaphragm. Retained contrast in the colon. IMPRESSION: Dobbhoff tube terminates in the expected position of the distal stomach. Distal aspect appears kinked. Patchy bibasilar opacities, compatible with infectious process or aspiration as noted on prior CT. Signed by: Dr. Christiano Yeager MD on 04/08/2020 12:01 PM Dictated By: CHRISTIANO YEAGER MD 00 Transcribed By: JEROMY on 04/08/201200 COPY TO: CHANTE WYNN MD ABDOMEN-1VIEW (KUB) 2020-04-08 11:53:00 [address] [address] Patient Name: LOUIE JOHNSTON MR #: [id number] : 1935 Age/Sex: 85/M Req #: [id number] Adm Physician: CORNEL HERNÁNDEZ MD Ordered by: CHANTE WYNN MD Report #: [id number] Location: ICU Room/Bed: [address] [address] Procedure: [id number] DX/ABDOMEN-1VIEW (KUB) Exam Date: Exam Time: REPORT STATUS: Signed EXAMINATION: ABDOMEN-1VIEW (KUB), CHEST SINGLE (PORTABLE) INDICATION: DOBBHOFF PLACEMENT COMPARISON: CT abdomen/pelvis 04-06-2020 and chest radiograph 04-06-2020. FINDINGS: TUBES and LINES: Dobbhoff tube terminates in the left mid to lower abdomen, and expected location of the distal stomach, compared to prior CT. Distal aspect appears kinked. Guidewire is present. LUNGS: Lungs are hyperinflated. Mild patchy opacities at the lung bases. No evidence of pulmonary edema. Calcified granulomas in the right midlung. PLEURA: No pleural effusion or pneumothorax. HEART AND MEDIASTINUM: The cardiomediastinal silhouette is mildly enlarged. Atherosclerotic calcifications of the aortic arch. Surgical clips overlie the left lower medial hemithorax. BONES AND SOFT TISSUES: No acute osseous lesion. Soft tissues are unremarkable. ABDOMEN/PELVIS: Nonobstructive bowel gas pattern. No evidence of free intraperitoneal air. No free air under the diaphragm. Retained contrast in the colon. IMPRESSION: Dobbhoff tube terminates in the expected position of the distal stomach. Distal aspect appears kinked. Patchy bibasilar opacities, compatible with infectious process or aspiration as noted on prior CT. Signed by: Dr. Christiano Yeager MD on 04/08/2020 12:01 PM Dictated By: CHRISTIANO YEAGER MD 00 Transcribed By: JEROMY on 04/08/201200 COPY TO: CHANTE WYNN MD CT BRAIN WO 2020-04-06 20:11:00 [address] [address] Patient Name: LOUIE JOHNSTON MR #: [id number] : 1935 Age/Sex: 85/M Req #: [id number] Adm Physician: Ordered by: SHADY MARTIN DO Report #: [id number] Location: ER Room/Bed: Procedure: [id number] CT/CT BRAIN WO Exam Date: 04/06/20 Exam Time: 1929 REPORT STATUS: Signed EXAMINATION: Head CT without contrast. HISTORY:Dizziness. COMPARISON:None. TECHNIQUE: Multidetector axial images were obtained from the foramen magnum to the vertex without contrast. The images were reconstructed using brain and bone algorithms. Thin section brain images were reformatted into coronal and sagittal planes. Dose modulation, iterative reconstruction, and/or weight based adjustment of the mA/kV was utilized to reduce the radiation dose to as low as reasonably achievable. Intravenous contrast: None IMAGE QUALITY: Acceptable. FINDINGS: Skull/scalp: No lytic or blastic. lesions. No surgical changes. Parenchyma: Nonspecific bilateral frontoparietal confluent periventricular and patchy subcortical white matter hypodensity are likely related to small vessel ischemic changes. No acute hemorrhage, mass or acute major vascular territorial infarct. Arteries: No density suggestive of thrombosis. Dural sinuses: No abnormal density suggestive of thrombosis. Ventricles: Mild compensated dilatation due to volume loss. No acute hydrocephalus. Extra-axial spaces: No abnormal density. Brain volume: Mild generalized cerebral volume loss. Craniocervical junct ion: No mass, Chiari malformation, or basilar invagination. Sella: No mass. Paranasal/mastoid sinuses: Imaged portions unremarkable. IMPRESSION: No acute intracranial abnormality. Mild generalized cerebral volume loss. Moderate supratentorial white matter microvascular ischemic changes. Signed by: Dr. Emily Riley M.D. on 04/06/2020 8:13 PM Dictated By: EMILY RILEY MD 12 Transcribed By: JEROMY on 04/06/202012 COPY TO: SHADY MARTIN DO CT ABDOMEN/PELVIS WO 2020-04-06 20:02:00 [address] [address] Patient Name: LOUIE JOHNSTON MR #: [id number] : 1935 Age/Sex: 85/M Req #: [id number] Adm Physician: Ordered by: SHADY MARTIN DO Report #: [id number] Location: Room/Bed: Procedure: [id number] CT/CT ABDOMEN/PELVIS WO Exam Date: 04/06/20 Exam Time: 1929 REPORT STATUS: Signed EXAM: CT Abdomen and Pelvis WITHOUT contrast INDICATION: Right flank pain. COMPARISON: None. TECHNIQUE: Abdomen and pelvis were scanned utilizing a multidetector helical scanner from the lung base to the pubic symphysis without administration of IV contrast. Absence of intravenous contrast decreases sensitivity for detection of focal lesions and vascular pathology. Coronal and sagittal reformations were obtained. Routine protocol was performed. IV CONTRAST: None ORAL CONTRAST: None COMPLICATIONS: None RADIATION DOSE: Total DLP: 158.41 mGy*cm Estimated effective dose: (DLP x 0.015 x size factor) mSv CTDIvol has been reviewed. It is below the limits set by the Radiation Protocol Committee (RPC). Dose modulation, iterative reconstruction, and/or weight based adjustment of the mA/kV was utilized to reduce the radiation dose to as low as reasonably achievable. FINDINGS: LINES and TUBES: None. LOWER THORAX: The heart is enlarged with atherosclerotic calcification of the coronary vessels. There is multifocal patchy airspace opacities of the lung bases with bronchiectasis. The descending aorta is ectatic measuring up to 3.8 cm with mild atherosclerotic calcification. HEPATOBILIARY: No focal hepatic lesions. No biliary ductal dilation. GALLBLADDER: No radio-opaque stones or sludge. No wall thickening. SPLEEN: No splenomegaly. PANCREAS: There is fatty infiltration of the pancreas. ADRENALS: Not well visualized. KIDNEYS/URETERS: Right: There is an obstructive 9 mm stone in the collecting system resulting in mild hydronephrosis. There are multiple additional subcentimeter nonobstructive stones in the mid and lower pole. There is a cortical cyst in the midpole. Left: There is a 7 mm nonobstruct shan stone in the inferior pole. There is a small cortical cyst in the inferior pole. No evidence of hydroureteronephrosis. GI TRACT: Evaluation of the bowel is severely limited by popliteal mesenteric fat and lack of enteric contrast. There are postoperative changes of prior bowel surgery with chain sutures in the central mid to lower abdomen. No abnormal distention, no obvious wall thickening, or evidence of bowel obstruction. Appendix is not clearly identified. There is however no fat stranding or adenopathy in the right lower quadrant to suggest appendicitis. PELVIC ORGANS/BLADDER: There is diffuse stranding of the pelvic fat planes. LYMPH NODES: No lymphadenopathy. VESSELS: There is severe atherosclerotic disease in the aorta and major arterial branches. There is infrarenal abdominal aortic aneurysm which measures approximately 3.3 x 3.1 cm and spans a length of approximately 2 cm. PERITONEUM / RETROPERITONEUM: There is diffuse stranding of the mesenteric fat. BONES: The bones are diffusely demineralized There are degenerative changes in the spine. SOFT TISSUES: There is diffuse anarsarca. IMPRESSION: 1. Obstructive 9 mm stone in the collecting system of the right kidney resulting in mild hydronephrosis. 2. Subcentimeter nonobstructive bilateral nephrolithiasis. 3. Nodular airspace opacities of the lung bases with bronchiectasis which most likely represents aspiration or multifocal pneumonia with superimposed atelectasis. 4. Cardiomegaly with atherosclerotic calcification of the coronary vessels. 5. Infrarenal abdominal aortic aneurysm. Severe atherosclerotic disease. 6. Diffuse stranding of the mesenteric fat and anasarca are likely reflective of fluid overload state. Signed by: Usha Roger MD on 04/06/2020 8:18 PM Dictated By: USHA ROGER MD 17 Transcribed By: JEROMY on 04/06/202017 COPY TO: SHADY MARTIN DO CHEST SINGLE (PORTABLE) 2020-04-06 19:54:00 [place] [address] Patient Name: LOUIE JOHNSTON MR #: [id number] : 1935 Age/Sex: 85/M Req #: [id number] Adm Physician: Ordered by: SHADY MARTIN DO Report #: [id number] Location: ER Room/Bed: Procedure: [id number] DX/CHEST SINGLE (PORTABLE) Exam Date: 04/06/20 Exam Time: 1929 REPORT STATUS: Signed EXAMINATION: CHEST SINGLE (PORTABLE) INDICATION: Right flank pain COMPARISON: None FINDINGS: TUBES and LINES: None. LUNGS: The lungs are hyperinflated. There is prominent interstitial lung markings and reticulonodu lar opacities at the bilateral lung bases. There are scattered calcified granulomas. PLEURA: No pleural effusion or pneumothorax. HEART AND MEDIASTINUM: The cardiomediastinal silhouette is mildly enlarged. There is atherosclerotic calcification of the thoracic aortic knob. BONES AND SOFT TISSUES: No acute osseous lesion. Soft tissues are unremarkable. UPPER ABDOMEN: No free air under the diaphragm. There are surgical clips in the expected location of the gastroesophageal junction. IMPRESSION: 1. Lung changes most compatible with emphysema. 2. Reticulonodular opacities at the bilateral lung bases most consistent with multifocal pneumonia. Signed by: Usha Roger MD on 04/06/2020 7:57 PM Dictated By: USHA ROGER MD 56 Transcribed By: JEROMY on 04/06/201956 COPY TO: SHADY MARTIN DO - CT ABD PELVIS W/O CONT 2020-01-18 10:51:00 N edda: LOUIE JOHNSTON [facility] : 1935 Age/S: 84 / M [address] [facility] Unit #: [id number] Loc: [place] [address] Phys: Cornel Gillespie DO Acct: [id number] Dis Date: Status: REG CLI PHONE #: [phone] Exam Date: 01/18/2020 1021 FAX #: [phone] Reason: CT RENAL CALCULI WO CONTRAST EXAMS: CPT CODE: [id number] CT ABD PELVIS W/O CONT 97099 HISTORY: Kidney stones. COMPARISON: CT scan from August 30, 2019. Location: [facility]. CT abdomen and pelvis: Stone protocol. Automated exposure control. CT of abdomen: Bronchiectasis in both lower lobes with scarring. Cardiomegaly. Hepatic parenchyma is unremarkable on this noncontrast exam. Trace perihepatic fluid. No discrete mass or architectural distortion. The liver measured 14 cm in length. The spleen is not enlarged. The stomach distended incompletely with thickened wall likely from underdistention but difficult to assess. Noncontrast pancreas is markedly atrophied. Adrenals are poorly visible. Kidneys are free from hydroureteronephrosis. Bilateral calyceal stones in the upper, lower and interpolar location measuring between 3 to 5 mm. Largest stone in the renal pelvis on the right measured 8.8 mm. No pathologic adenopathy. Fusiform aneurysmal descending thoracic aorta at 3.5 cm is unchanged as is 3.2 cm distal fusiform abdominal aortic and the proximal to the bifurcation. No bowel obstruction or colitis or diverticulitis or enteritis. Constipation. Anastomotic sutures in the small bowel in the lower abdomen. The exact location is not clear due to unopacified bowel. CT PELVIS: Appendix is not visible with certainty but no inflammation. Pelvic bowel loops are unobstructed. Constipation. Circumferential wall thickening of the urinary bladder measuring up to 5.3 mm. Correlate for cystitis. Prostatomegaly at 5 cm. No pelvic pathologic adenopathy. No free fluid or free air. Subcutaneous tissues and the musculature are normal in appearance. No lytic or blastic lesions are noted within the bony skeleton. DJD. PAGE 1 Signed Report (CONTINUED) Name: LOUIE JOHNSTON [facility] : 1935 Age/S: 84 / M [address] [facility] Unit #: [id number] Loc: [place] [address] Phys: Cornel Gillespie DO Acct: [id number] Dis Date: Status: REG CLI PHONE #: [phone] Exam Date: 01/18/2020 1021 FAX #: [phone] Reason: CT RENAL CALCULI WO CONTRAST EXAMS: CPT CODE: [id number] CT ABD PELVIS W/O CONT 08847 <Continued> IMPRESSION: No hydroureteronephrosis on either side. Multiple bilateral nonobstructing calyceal stones measuring 3 to 5 mm. Renal pelvic stone is also nonobstructing on the right side measuring 8.8 mm. Bilateral Bosniak 2 lesions in the lower pole. Appendix is not seen but no inflammatory changes. No bowel obstruction or colitis or diverticulitis or enteritis. Constipation. No free fluid or free air. Circumferentially thickened urinary bladder wall likely from outlet obstruction. Correlate for cystitis. Prostatomegaly at 5 cm. Stable fusiform descending thoracic aortic aneurysm at 3.5 cm and distal abdominal aortic aneurysm at 3.2 cm ( AAA (abdominal aortic aneurysm) follow-up recommendation based on AAA size: a. 2.6-2.9 cm: Follow up every 5 years. b. 3.0-3.4 cm: Follow up every 3 years. c. 3.5- 3.9 cm: Follow up every 2 years. d. 4.0-4.4 cm: Follow up every 12 months and vascular consultation. e. 4.5-5.4 cm: Follow up every 6 months and vascular consultation. f. >/=5.5 cm: Referral to vascular specialist. 1. AAA best practices ACR White paper: J Am Yajaira Radiol 2013:10:789-794. 2. For aortas with maximum diameter of 2.6-2.9 cm meeting the criteria for AAA (>/= 1.5x proximal normal segment. No f/u for aortas <2.6 cm) 3. Enlarging Fusiform AAA: Recommend vascular consultation if enlarges >/= 0.5 cm in 6 months or >/= 1 cm in 1 year. 4. Saccular AAA of any size: Recommend vascular consultation). . at 1051 Reported and signed by: Will Blair M.D. PAGE 2 Signed Report (CONTINUED) Name: LOUIE JOHNSTON [facility] : 1935 Age/S: 84 / M [address] [facility] Unit #: [id number] Loc: [place] [address] Phys: Cornel Gillespie DO Acct: [id number] Dis Date: Status: REG CLI PHONE #: [phone] Exam Date: 01/18/2020 1021 FAX #: [phone] Reason: CT RENAL CALCULI WO CONTRAST EXAMS: CPT CODE: [id number] CT ABD PELVIS W/O CONT 36089 <Continued> CC: Cornel Gillespie DO Technologist:Jack Fernandez RT(R),(MR),(CT) CTDI: DLP: Trnscb Date/Time: 01/18/2020 (1051) [email or web address] Orig Print D/T: S: 01/18/2020 (5231) PAGE 3 Signed Report - CT CHEST W/O CONTRAST 2020-01-11 10:06:00 Na me: LOUIE JOHNSTON [facility] : 1935 Age/S: 84 / M [address] [facility] Unit #: [id number] Loc: [place] [address] Phys: Cristina Gilliland MD Acct: [id number] Dis Date: Status: REG CLI PHONE #: [phone] Exam Date: 01/11/2020932 FAX #: [phone] Reason: ABN FINDINGS OF LUNG FIELD EXAMS: CPT CODE: [id number] CT CHEST W/O CONTRAST 45100 HISTORY: Abnormal lung findings. COMPARISON: CT chest from August 30, 2017 and December 16, 2016. Location: [facility]. CT chest without contrast: Automated exposure control. COPD with severe hyperinflation with upper lobe predominance. Bilateral central cylindrical bronchiectasis in the lower lobes with associated scarring likely sequela of prior infection as seen on the previous CT scan. No acute infiltrates, effusion or congestion. No honeycombing or significant fibrosis is noted. No discrete parenchymal mass or nodules are noted. Pleural-based calcifications may suggest prior asbestos exposure. No evidence for asbestosis. Aneurysmal ascending aorta at 4.3 cm. Aneurysmal ascending aorta at 3.5 cm. These are both fusiform in shape. Normal caliber unopacified pulmonary arteries. Unremarkable thyroid glands. Esophageal wall is not thickened. No pathologic adenopathy. Cardiomegaly without pericardial effusion. Mild atherosclerotic calcifications of all 3 coronary arteries. Visualized upper abdomen demonstrating moderately thickened gastric wall. Correlate with gastritis. The subcutaneous tissues and the musculature are normal in appearance. No lytic or blastic lesions are noted within the bony skeleton. DJD. IMPRESSION: Marked hyperinflation and COPD with upper lobe predominance. Bilateral traction bronchiectasis in the lower lobes likely sequela of prior infection with associated scarring. No bronchiectasis or honeycombing. No mass or lesions. No pathologic adenopathy. Fusiform aneurysmal dilatation of the ascending aorta at 4.3 cm and descending aorta is aneurysmal at 3.5 cm. at 1006 Reported and signed by: Will Blair M.D. PAGE 1 Signed Report (CONTINUED) Name: LOUIE JOHNSTON [facility] : 1935 Age/S: 84 / M [address] Unit #: [id number] Loc: [place] [address] Phys: Cristina Gilliland MD Acct: [id number] Dis Date: Status: REG CLI PHONE #: [phone] Exam Date: 01/11/2020 09 FAX #: [phone] Reason: ABN FINDINGS OF LUNG FIELD EXAMS: CPT CODE: [id number] CT CHEST W/O CONTRAST 39111 <Continued> CC: Cristina Gilliland MD; Cornel Gillespie DO Technologist:Ashleigh Brown RT(R); Anny Gorman CTDI: DLP: Trnscb Date/Time: 01/11/2020 (1006) t.[email or web address].TH4 Orig Print D/T: S: 01/11/2020 (1009) PAGE 2 Signed Report COMPREHENSIVE METABOLIC PANEL 2019-09-01 05:32:00 Test Item SODIUM (test code = NA) 143 mmol/L 136-145 N POTASSIUM (test code = K) 3.6 mmol/L 3.5-5.1 N CHLORIDE (test code = CL) 111.0 mmol/L 98-107 H CARBON DIOXIDE (test code = CO2) 27.0 mmol/L 21-32 N ANION GAP (test code = GAP) 8.6 10-20 L GLUCOSE (test code = GLU) 90 mg/dL 74-106 N BLOOD UREA NITROGEN (test code = BUN) 27 mg/dL 7-18 H GLOMERULAR FILTRATION RATE (test code = GFR) > 60 mL/min >=60 Estimated GFR by using Modified MDRD formula.Chronic kidney disease is defined as either kidney damageor GFR <60 mL/min/1.73 m2 for >3 months. CREATININE (test code = CREAT) 0.80 mg/dL 0.7-1.3 N BUN/CREATININE RATIO (test code = BUN/CREA) 33.8 10-20 H TOTAL PROTEIN (test code = PROT) 5.8 gram/dL 6.4-8.2 L ALBUMIN (test code = ALB) 2.0 g/dL 3.4-5.0 L GLOBULIN (test code = GLOB) 3.8 gram/dL 2.7-4.2 N ALBUMIN/GLOBULIN RATIO (test code = A/G) 0.5 0.75-1.50 L CALCIUM (test code = CA) 7.9 mg/dL 8.5-10.1 L BILIRUBIN TOTAL (test code = BILT) 0.50 mg/dL 0.0-1.0 N SGOT/AST (test code = AST) 13 IUnit/L 15-37 L SGPT/ALT (test code = ALT) 13 IUnit/L 12-78 N ALKALINE PHOSPHATASE TOTAL (test code = ALKP) 81 IUnit/L 45-117 N Note change in reference range due to change in reagent. COMPREHENSIVE METABOLIC [id number] 05:18:00* Test Item Value Reference Range Interpretation Comments SODIUM (test code = NA) 143 mmol/L 136-145 N POTASSIUM (test code = K) 3.6 mmol/L 3.5-5.1 N CHLORIDE (test code = CL) 111.0 mmol/L 98-107 H CARBON DIOXIDE (test code = CO2) mmol/L 21-32 ANION GAP (test code = GAP) 10-20 GLUCOSE (test code = GLU) mg/dL 74-106 BLOOD UREA NITROGEN (test code = BUN) mg/dL 7-18 GLOMERULAR FILTRATION RATE (test code = GFR) mL/min >=60 CREATININE (test code = CREAT) mg/dL 0.7-1.3 BUN/CREATININE RATIO (test code = BUN/CREA) 10-20 TOTAL PROTEIN (test code = PROT) gram/dL 6.4-8.2 ALBUMIN (test code = ALB) g/dL 3.4-5.0 GLOBULIN (test code = GLOB) gram/dL 2.7-4.2 ALBUMIN/GLOBULIN RATIO (test code = A/G) 0.75-1.50 CALCIUM (test code = CA) mg/dL 8.5-10.1 BILIRUBIN TOTAL (test code = BILT) mg/dL 0.0-1.0 SGOT/AST (test code = AST) IUnit/L 15-37 SGPT/ALT (test code = ALT) IUnit/L 12-78 ALKALINE PHOSPHATASE TOTAL (test code = ALKP) IUnit/L 45-117 CBC W/AUTO [id number] 04:55:00* Test Item Value Reference Range Interpretation Comments WHITE BLOOD CELL (test code = WBC) 8.3 K/mm3 4.5-12.5 N RED BLOOD CELL (test code = RBC) 4.40 mill/mm3 4.0-5.8 N HEMOGLOBIN (test code = HGB) 12.6 gram/dL 13.0-17.5 L HEMATOCRIT (test code = HCT) 39.0 % 42.0-52.0 L MEAN CELL VOLUME (test code = MCV) 88.6 fL 80-98 N MEAN CELL HGB (test code = MCH) 28.6 picogram 27.0-33.0 N MEAN CELL HGB CONCETRATION (test code = MCHC) 32.3 gram/dL 33.0-36. 0 L RED CELL DISTRIBUTION WIDTH (test code = RDW) 13.5 % 11.6-16. 2 N RED CELL DISTRIBUTION WIDTH SD (test code = RDW-SD) 43.9 fL 37 .0-51.0 N PLATELET COUNT (test code = PLT) 223 K/mm3 150-450 N MEAN PLATELET VOLUME (test code = MPV) 10.0 fL 6.7-11.0 N NEUTROPHIL % (test code = NT%) 83.0 % 39.0-69.0 H IMMATURE GRANULOCYTE % (test code = IG%) 0.7 % 0.0-5.0 N LYMPHOCYTE % (test code = LY%) 7.7 % 25.0-55.0 L MONOCYTE % (test code = MO%) 7.6 % 0.0-10.0 N EOSINOPHIL % (test code = EO%) 0.8 % 0.0-5.0 N BASOPHIL % (test code = BA%) 0.2 % 0.0-1.0 N NUCLEATED RBC % (test code = NRBC%) 0.0 % 0-0 N NEUTROPHIL # (test code = NT#) 6.90 K/mm3 1.8-7.7 N IMMATURE GRANULOCYTE # (test code = IG#) 0.06 x10 3/uL 0-0.03 H LYMPHOCYTE # (test code = LY#) 0.64 K/mm3 1.0-5.0 L MONOCYTE # (test code = MO#) 0.63 K/mm3 0-0.8 N EOSINOPHIL # (test code = EO#) 0.07 K/mm3 0.0-0.5 N BASOPHIL # (test code = BA#) 0.02 K/mm3 0.0-0.2 N NUCLEATED RBC # (test code = NRBC#) 0.00 K/mm3 0.0-0.1 N MANUAL DIFF REQUIRED (test code = MDIFF) NO COMPREHENSIVE METABOLIC [id number] 10:24:00* Test Item Value Reference Range Interpretation Comments SODIUM (test code = NA) 142 mmol/L 136-145 N POTASSIUM (test code = K) 4.1 mmol/L 3.5-5.1 N CHLORIDE (test code = CL) 108.0 mmol/L 98-107 H CARBON DIOXIDE (test code = CO2) 27.0 mmol/L 21-32 N ANION GAP (test code = GAP) 11.1 10-20 N GLUCOSE (test code = GLU) 112 mg/dL 74-106 H BLOOD UREA NITROGEN (test code = BUN) 28 mg/dL 7-18 H GLOMERULAR FILTRATION RATE (test code = GFR) > 60 mL/min >=60 Estimated GFR by using Modified MDRD formula.Chronic kidney disease is defined as either kidney damageor GFR <60 mL/min/1.73 m2 for >3 months. CREATININE (test code = CREAT) 0.90 mg/dL 0.7-1.3 N BUN/CREATININE RATIO (test code = BUN/CREA) 31.1 10-20 H TOTAL PROTEIN (test code = PROT) 6.6 gram/dL 6.4-8.2 N ALBUMIN (test code = ALB) 2.3 g/dL 3.4-5.0 L GLOBULIN (test code = GLOB) 4.3 gram/dL 2.7-4.2 H ALBUMIN/GLOBULIN RATIO (test code = A/G) 0.5 0.75-1.50 L CALCIUM (test code = CA) 8.6 mg/dL 8.5-10.1 N BILIRUBIN TOTAL (test code = BILT) 0.60 mg/dL 0.0-1.0 N SGOT/AST (test code = AST) 13 IUnit/L 15-37 L SGPT/ALT (test code = ALT) 18 IUnit/L 12-78 N ALKALINE PHOSPHATASE TOTAL (test code = ALKP) 92 IUnit/L 45-117 N Note change in reference range due to change in reagent. LIPID PROFILE (CORONARY RISK)2019-08-31 10:24:00* Test Item Value Reference Range Interpretation Comments TRIGLYCERIDES (test code = TRIG) 92 mg/dL 20-150 N CHOLESTEROL (test code = CHOL) 127 mg/dL 0-200 N CHOLESTEROL/HDL RATIO (test code = CHOLHDL) 3.0 RATIO 0-4.9 N RISK ASSOCIATED WITH CHOL/HDL RATIOS: Risk Male Female1/2 AVERAGE 3.43 3.27AVERAGE 4.97 4.442X AVERAGE 9.55 7.053X AVERAGE 23.39 11.04 REFERENCE VALUE IS RELATED TO RISK LEVELS ASRECOMMENDED BY THE ALYSSA. HEART, LUNG, AND BLOOD INST. HDL CHOLESTEROL (test code = HDL) 32 mg/dL 40-60 L LIPOPROTEIN LDL (test code = LDL) 81 mg/dL 100-129 L Reference Interval: mg/dL mmol/L Optimal <100 <2.6Near/above optimal 100-129 2.6- 3.3Borderline High 130-159 3.4-4.1High 160-189 4.1-4.9Very High >=190 >=4.9========= This LDL result is a direct measurement.========= TSH REFLEX TO [id number] 10:24:00* Test Item Value Reference Range Interpretation Comments TSH REFLEX TO FT4 (test code = TSHREFLEX) 4.2 0.4-5.5 N COMPREHENSIVE METABOLIC [id number] 10:17:00* Test Item Value Reference Range Interpretation Comments SODIUM (test code = NA) 142 mmol/L 136-145 N POTASSIUM (test code = K) 4.1 mmol/L 3.5-5.1 N CHLORIDE (test code = CL) 108.0 mmol/L 98-107 H CARBON DIOXIDE (test code = CO2) mmol/L 21-32 ANION GAP (test code = GAP) 10-20 GLUCOSE (test code = GLU) mg/dL 74-106 BLOOD UREA NITROGEN (test code = BUN) mg/dL 7-18 GLOMERULAR FILTRATION RATE (test code = GFR) mL/min >=60 CREATININE (test code = CREAT) mg/dL 0.7-1.3 BUN/CREATININE RATIO (test code = BUN/CREA) 10-20 TOTAL PROTEIN (test code = PROT) gram/dL 6.4-8.2 ALBUMIN (test code = ALB) g/dL 3.4-5.0 GLOBULIN (test code = GLOB) gram/dL 2.7-4.2 ALBUMIN/GLOBULIN RATIO (test code = A/G) 0.75-1.50 CALCIUM (test code = CA) mg/dL 8.5-10.1 BILIRUBIN TOTAL (test code = BILT) mg/dL 0.0-1.0 SGOT/AST (test code = AST) IUnit/L 15-37 SGPT/ALT (test code = ALT) IUnit/L 12-78 ALKALINE PHOSPHATASE TOTAL (test code = ALKP) IUnit/L 45-117 LIPID PROFILE (CORONARY RISK)2019-08-31 10:17:00* Test Item Value Reference Range Interpretation Comments TRIGLYCERIDES (test code = TRIG) mg/dL 20-150 CHOLESTEROL (test code = CHOL) mg/dL 0-200 CHOLESTEROL/HDL RATIO (test code = CHOLHDL) RATIO 0-4.9 HDL CHOLESTEROL (test code = HDL) mg/dL 40-60 LIPOPROTEIN LDL (test code = LDL) mg/dL 100-129 TSH REFLEX TO [id number] 10:17:00* Test Item Value Reference Range Interpretation Comments TSH REFLEX TO FT4 (test code = TSHREFLEX) 0.4-5.5 CBC W/AUTO [id number] 09:45:00* Test Item Value Reference Range Interpretation Comments WHITE BLOOD CELL (test code = WBC) 7.0 K/mm3 4.5-12.5 N RED BLOOD CELL (test code = RBC) 4.94 mill/mm3 4.0-5.8 N HEMOGLOBIN (test code = HGB) 13.9 gram/dL 13.0-17.5 N HEMATOCRIT (test code = HCT) 44.3 % 42.0-52.0 N MEAN CELL VOLUME (test code = MCV) 89.7 fL 80-98 N MEAN CELL HGB (test code = MCH) 28.1 picogram 27.0-33.0 N MEAN CELL HGB CONCETRATION (test code = MCHC) 31.4 gram/dL 33.0-36. 0 L RED CELL DISTRIBUTION WIDTH (test code = RDW) 13.7 % 11.6-16. 2 N RED CELL DISTRIBUTION WIDTH SD (test code = RDW-SD) 44.7 fL 37 .0-51.0 N PLATELET COUNT (test code = PLT) 246 K/mm3 150-450 N MEAN PLATELET VOLUME (test code = MPV) 10.5 fL 6.7-11.0 N NEUTROPHIL % (test code = NT%) 77.8 % 39.0-69.0 H IMMATURE GRANULOCYTE % (test code = IG%) 1.3 % 0.0-5.0 N LYMPHOCYTE % (test code = LY%) 10.7 % 25.0-55.0 L MONOCYTE % (test code = MO%) 9.0 % 0.0-10.0 N EOSINOPHIL % (test code = EO%) 0.9 % 0.0-5.0 N BASOPHIL % (test code = BA%) 0.3 % 0.0-1.0 N NUCLEATED RBC % (test code = NRBC%) 0.0 % 0-0 N NEUTROPHIL # (test code = NT#) 5.46 K/mm3 1.8-7.7 N IMMATURE GRANULOCYTE # (test code = IG#) 0.09 x10 3/uL 0-0.03 H LYMPHOCYTE # (test code = LY#) 0.75 K/mm3 1.0-5.0 L MONOCYTE # (test code = MO#) 0.63 K/mm3 0-0.8 N EOSINOPHIL # (test code = EO#) 0.06 K/mm3 0.0-0.5 N BASOPHIL # (test code = BA#) 0.02 K/mm3 0.0-0.2 N NUCLEATED RBC # (test code = NRBC#) 0.00 K/mm3 0.0-0.1 N [id number] 09:44:00* Test Item Value Reference Range Interpretation Comments GLYCOSYLATED HEMOGLOBIN (HA1C) (test code = GLYHGB) 6.1 % HbA1 SUGGESTED DIAGNOSIS: HbA1C (%) Diabetic >6.4Prediabetes 5.7 - 6.4Normal <5.7 ESTIMATED AVERAGE GLUCOSE (test code = EAG) 128 MG/DL CBC W/AUTO [id number] 09:31:00* Test Item Value Reference Range Interpretation Comments WHITE BLOOD CELL (test code = WBC) K/mm3 4.5-12.5 RED BLOOD CELL (test code = RBC) mill/mm3 4.0-5.8 HEMOGLOBIN (test code = HGB) 13.9 gram/dL 13.0-17.5 N HEMATOCRIT (test code = HCT) 44.3 % 42.0-52.0 N MEAN CELL VOLUME (test code = MCV) fL 80-98 MEAN CELL HGB (test code = MCH) picogram 27.0-33.0 MEAN CELL HGB CONCETRATION (test code = MCHC) gram/dL 33.0-36. 0 RED CELL DISTRIBUTION WIDTH (test code = RDW) % 11.6-16. 2 RED CELL DISTRIBUTION WIDTH SD (test code = RDW-SD) fL 37 .0-51.0 PLATELET COUNT (test code = PLT) K/mm3 150-450 MEAN PLATELET VOLUME (test code = MPV) fL 6.7-11.0 NEUTROPHIL % (test code = NT%) % 39.0-69.0 IMMATURE GRANULOCYTE % (test code = IG%) % 0.0-5.0 LYMPHOCYTE % (test code = LY%) % 25.0-55.0 MONOCYTE % (test code = MO%) % 0.0-10.0 EOSINOPHIL % (test code = EO%) % 0.0-5.0 BASOPHIL % (test code = BA%) % 0.0-1.0 NEUTROPHIL # (test code = NT#) K/mm3 1.8-7.7 LYMPHOCYTE # (test code = LY#) K/mm3 1.0-5.0 MONOCYTE # (test code = MO#) K/mm3 0-0.8 EOSINOPHIL # (test code = EO#) K/mm3 0.0-0.5 BASOPHIL # (test code = BA#) K/mm3 0.0-0.2 [id number] 03:39:00* Test Item Value Reference Range Interpretation Comments TROPONIN-I (test code = TROPI) 0.018 ng/mL 0-0.045 N COMMENTS TO SHOP TECHNICIAN: COLLECT 3 HOURS AFTER PREVIOUS [id number] 22:47:00* Test Item Value Reference Range Interpretation Comments TROPONIN-I (test code = TROPI) <0.015 ng/mL 0-0.045 N COMMENTS TO SHOP TECHNICIAN: COLLECT 3 HOURS AFTER PREVIOUS SAMPLELACTIC [id number] 19:49:00* Test Item Value Reference Range Interpretation Comments LACTIC ACID (test code = LACT) 1.7 mmol/L 0.4-1.9 N LACTIC [id number] 18:17:00* Test Item Value Reference Range Interpretation Comments LACTIC ACID (test code = LACT) 2.4 mmol/L 0.4-1.9 HH Results called to [id number] by V.[facility] 08/30/19 1817Critical results verified and read back by Nurse? Y URINALYSIS [id number] 18:03:00* Test Item Value Reference Range Interpretation Comments UA COLOR (test code = COLU) YELLOW YELLOW UA APPEARANCE (test code = APPU) Cloudy CLEAR A UA GLUCOSE DIPSTICK (test code = DGLUU) NEGATIVE mg/dL NEGATIVE UA BILIRUBIN DIPSTICK (test code = BILU) NEGATIVE mg/dL NEGATIVE UA KETONE DIPSTICK (test code = KETU) 10 (1+) mg/dL NEGATIVE A UA SPECIFIC GRAVITY (test code = SGU) 1.048 1.001-1.035 UA BLOOD DIPSTICK (test code = ESME) >1.0 mg/dL NEGATIVE UA PH DIPSTICK (test code = VERONICA) 6.0 5.0-8.0 UA PROTEIN DIPSTICK (test code = PROU) 70 (1+) mg/dL NEGATIVE A UA UROBILINIOGEN DIPSTICK (test code = URO) Normal mg/dL NEGATIVE UA NITRITE DIPSTICK (test code = CRISTOBAL) NEGATIVE NEGATIVE UA LEUKOCYTE ESTERASE W REFLEX (test code = LEUUR) NEGATIVE Adri/uL NEGATIVE UA WBC (test code = WBCU) 0-5 per HPF 0-5 UA RBC (test code = RBCU) >200 #/HPF 0-5 UA EPITHELIAL CELLS (test code = EPIU) FEW per HPF FEW UA BACTERIA (test code = BACU) NONE SEEN #/HPF NONE UA HYALINE CAST (test code = HYALU) 6-10 #/LPF 0-5 A UA MUCUS (test code = MUCU) FEW #/LPF FEW Urine Source? Clean Catch- CT ABD PELVIS [id number] 16:36:00 Name: LOUIE JOHNSTON [facility] : 1935 Age/S: 84 / M [address] [facility] Unit #: [id number] Loc: [place], [place] [address] Phys: David Morin DO Acct: [id number] Di s Date: Status: REG ER PHONE #: [phone] Exam Date: 08/30/2019 1558 FAX #: Reason: abdominal pain, r/o diverticulitis EXAMS: CPT CODE: [id number] CT ABD PELVIS W/CONT 88735 HISTORY: Chest pain/PE ev aluation. COMPARISON: None available. CTA CHEST: 3-D images. 100 mL of Isovue-370. Automated exposure control. N o pulmonary embolism. Unopacified aorta is nondiagnostic for dissection. A scending fusiform aortic aneurysm at 4.1 cm and descending fusiform aortic aneurysm at 3.6 cm. Tortuous arch. Well-opacified SVC. Unopacified neck v asculature are nondiagnostic. Visualized small thyroid glands. Eso phageal wall is not thickened. No pathologic adenopathy. Moderate cardiome yazmin without pericardial effusion. Subcutaneous tissues and the musculature are normal in appearance. No lytic or blastic lesions are noted within the bony skeleton. Patchy nodular masslike bibasal in filtrates with small right effusion. Bibasal subsegmental atelectasis. Sca rring. No bronchiectasis, honeycombing or fibrosis. 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 Calcified granuloma on the right side. IMPRESSION: Nodular masslike bibasal infiltrates , greater on the right. Follow-up to resolution. Small right effusion. B ibasal subsegmental atelectasis. No pulmonary embolism. Unopacified aort a is nondiagnostic with fusiform ascending aortic aneurysm at 4.1 cm and fusiform descending aortic aneurysm at 3.6 cm. Markedly tortuous aortic arch as well. No pathologic adenopathy. CT of abdomen with contrast: COMPARISON: September 30, 2017. Hepatic parenchyma is enhancing homogeneously. No discrete parenchymal m ass. Beam hardening artifact is limiting evaluation. Portal vein and hep atic artery are patent. No perihepatic fluid is noted. The liver is alicia uring 14.7 cm in length. The spleen is not enlarged and enhanc es homogeneously. Stomach distended incompletely and is very limited in evaluation and difficult to assess. Patient is post gastrojejunostomy. PAGE 1 Signed Report (CONTINUED) Name: LOUIE JOHNSTON [facility] : 1935 Age/S: 84 / M [address] [facility] Unit #: [id number] Loc: [place] [address] Phys: Poncho Morin Acct: [id number] Dis Date: Status: REG ER PHONE #: [phone] Exam Date: 08/30/2019 1559 FAX #: [phone] Reason: abdominal pain, r/o diverticulitis EXAMS: CPT CODE: [id number] CT ABD PELVIS W /CONT 80586 <Continued> Markedly atrophied pancreas enhances homogeneously. Hyperplastic left adrenal. Right adrenal is unremarkable. Both kidneys are free from hydroureteronephrosis. Homogeneous enhancement on the right. Heterogeneous enhancement on the left. This could represent either pyelonephritis or infarct. Correlate with clinical symptomatology. No perinephric collections or inflammatory changes are noted. No pathologic adenopathy. Borderline proximal descending abdominal aorta at 2.9 cm. Atherosclerotic change with large thrombus along its anterior margin and the distal half of the aorta. No bowel obstruction. Postop changes of gastrojejunostomy in the left hemiabdomen and postop changes with anastomosis of the transverse colon as well. Th is is unchanged from previous examination of 2018. Constipation. CT PELVIS: Extensive postop changes within the jarret l loops in the pelvis as well. No obstruction is noted. Appendix is not visible but no inflammation. Incompletely distended urinary bl adder with thickened wall. Correlate for chronic outlet obstruction and chronic cystitis with urinalysis. Prostatomegaly at 5.2 cm. No free flui d or free air or abscess. No pelvic pathologic adenopathy. Subcutaneous tissues and the musculature are normal in appearance. No lytic or blastic lesions are noted within the bony skeleton. DJD. IMPRESSION: Heterogeneous enhancement of the left kidne y in the interpolar region which may represent infarct of the left inter polar region or pyelonephritis however no inflammatory changes are visib le.. Correlate with clinical symptomatology. No hydroureteronephrosis on either side. Thickened urinary bladder wall. Correlate for chronic cyst itis from outlet obstruction. Prostatomegaly at 5.2 cm. Appendix is not visible but confirmation. Extensive anastomotic suture s within the small and large bowel which appear unchanged in pattern fro m previous examination. Constipation. PAGE 2 Signed R eport (CONTINUED) Name: LOIUE JOHNSTON [facility] : 1935 Age/S: 84 / M [address] [facility] Unit #: [id number] Loc: [place] [address] Phys: Macrina Morin DO Acct: [id number] Dis Date: Status: REG ER PHONE #: [phone] Exam Date: 08/30/2019 5608 FAX #: [phone] Reason: abdominal pain, r/o divert iculitis EXAMS: C PT CODE: [id number] CT ABD PELVIS W/CONT 04349 <Continued> Large thrombus in the distal abdominal aorta along its anterior margin. The rest of it is patent. 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 at 1636 Reported and signed by: Will Blair M.D. CC: Cornel Gillespie DO; Macrina Morin DO Technologist:Ashleigh Brown RT(R); Jolie CTDI: DLP: Trnscb Date/Time: 08/30/2019 (1636) [email or web address] Orig Print D/T: S: 08/30/2019 (4068) PAGE 3 Signed Report - CTA CHEST FOR [id number] 16:36:00 Name: LOUIE JOHNSTON [facility] : 1935 Age/S: 84 / M [address] [facility] Unit #: [id number] Loc: [place] [address] Phys: Macrina Morin DO Acct: [id number] Dis Date: Status: REG ER PHONE #: [phone] Exam Date: 08/30/2019 1605 FAX #: [phone] Reason: chest pain, r/o pe EXAMS: CPT CODE: [id number] [place] [address] HISTORY: Chest pain/PE evaluation. COMPARISON: None available. CTA CHEST: 3-D images. 100 mL of Isovue-370. Automated exposure control. No pulmonary embolism. Unopacified aorta is nondiagnostic for dissection. Ascending fusiform aortic aneurysm at 4.1 cm and descending fusiform aortic aneurysm at 3.6 cm. Tortuous arch. Well-opacified SVC. Unopacified neck vasculature are nondiagnostic. Visualized small thyroid glands. Esophageal wall is not thickened. No pathologic adenopathy. Moderate cardiomegaly without pericardial effusion. Subcutaneous tissues and the musculature are normal in appearance. No lytic or blastic lesions are noted within the bony skeleton. Patchy nodular masslike bibasal in filtrates with small right effusion. Bibasal subsegmental atelectasis. Sca rring. No bronchiectasis, honeycombing or fibrosis. 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 Calcified granuloma on the right side. IMPRESSION: Nodular masslike bibasal infiltrates , greater on the right. Follow-up to resolution. Small right effusion. B ibasal subsegmental atelectasis. No pulmonary embolism. Unopacified aort a is nondiagnostic with fusiform ascending aortic aneurysm at 4.1 cm and fusiform descending aortic aneurysm at 3.6 cm. Markedly tortuous aortic arch as well. No pathologic adenopathy. CT of abdomen with contrast: COMPARISON: September 30, 2017. Hepatic parenchyma is enhancing homogeneously. No discrete parenchymal m ass. Beam hardening artifact is limiting evaluation. Portal vein and hep atic artery are patent. No perihepatic fluid is noted. The liver is alicia uring 14.7 cm in length. The spleen is not enlarged and enhanc es homogeneously. Stomach distended incompletely and is very limited in evaluation and difficult to assess. Patient is post gastrojejunostomy. PAGE 1 Signed Report (CONTINUED) Name: LOUIE JOHNSTON [facility] : 1935 Age/S: 84 / M [address] [facility] Unit #: [id number] Loc: [place] [address] Phys: Poncho Morin DO Acct: [id number] Dis Date: Status: REG ER PHONE #: [phone] Exam Date: 08/30/2019 160 FAX #: Reason: chest pain, r/o pe EXAMS: CPT CODE: [id number] CTA CHEST FOR P E 09051 <Continued> Markedly atrophied pancreas enhances homogeneously. Hyperplastic left adrenal. Right adrenal is unremarkable. Both kidneys are free from hydroureteronephrosis. Homogeneous enhancement on the right. Heterogeneous enhancement on the left. This could represent either pyelonephritis or infarct. Correlate with clinical symptomatology. No perinephric collections or inflammatory changes are noted. No pathologic adenopathy. Borderline proximal descending abdominal aorta at 2.9 cm. Atherosclerotic change with large thrombus along its anterior margin and the distal half of the aorta. No bowel obstruction. Postop changes of gastrojejunostomy in the left hemiabdomen and postop changes with anastomosis of the transverse colon as well. Th is is unchanged from previous examination of 2018. Constipation. CT PELVIS: Extensive postop changes within the jarret l loops in the pelvis as well. No obstruction is noted. Appendix is not visible but no inflammation. Incompletely distended urinary bl adder with thickened wall. Correlate for chronic outlet obstruction and chronic cystitis with urinalysis. Prostatomegaly at 5.2 cm. No free flui d or free air or abscess. No pelvic pathologic adenopathy. Subcutaneous tissues and the musculature are normal in appearance. No lytic or blastic lesions are noted within the bony skeleton. DJD. IMPRESSION: Heterogeneous enhancement of the left kidne y in the interpolar region which may represent infarct of the left inter polar region or pyelonephritis however no inflammatory changes are visib le.. Correlate with clinical symptomatology. No hydroureteronephrosis on either side. Thickened urinary bladder wall. Correlate for chronic cyst itis from outlet obstruction. Prostatomegaly at 5.2 cm. Appendix is not visible but confirmation. Extensive anastomotic suture s within the small and large bowel which appear unchanged in pattern fro m previous examination. Constipation. PAGE 2 Signed R eport (CONTINUED) Name: LOUIE JOHNSTON [facility] : 1935 Age/S: 84 / M [address] Unit #: [id number] Loc: [place] [address] Phys: Macrina Morin DO Acct: [id number] Dis Date: Status: REG ER PHONE #: [phone] Exam Date: 08/30/2019 1605 FAX #: [phone] Reason: chest pain, r/o pe EXAMS: C PT CODE: [id number] CTA CHEST FOR PE <Continued> Large thrombus in the distal abdominal aorta along its anterior margin. The rest of it is patent. 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 at 1636 Reported and signed by: Will Blair M.D. CC: Cornel Gillespie DO; Macrina Morin DO Technologist:Ashleigh LEWIS(R); Jolie CTDI: DLP: Trnscb Date/Time: 08/30/2019 (1636) [email or web address] Orig Print D/T: S: 08/30/2019 (1640) PAGE 3 Signed Report - CT HEAD/BRAIN W/O [id number] 16:08:00 Name: LOUIE JOHNSTON [facility] : 1935 Age/S: 84 / M [address] Unit #: [id number] Loc: [place] [address] Phys: Macrina Morin DO Acct: [id number] Dis Date: Status: REG ER PHONE #: [phone] Exam Date: 08/30/2019 160 FAX #: [phone] Reason: CODE SEPSIS EXAMS: CPT CODE: [id number] CT HEAD/BRAIN W/O CONT 98127 HISTORY: Sepsis. COMPARISON: September 30, 2017. CT brain without contrast: Automated exposure control. Location: [facility]. No acute intracranial bleeds or extra-axial collections are noted. No acute territorial vascular infarction is noted. Scattered bilateral subcortical infarcts noted again. The sulci, gyri, ventricles and subarachnoid spaces and the basilar cisterns are normal for patient's age. No herniation or hydrocephalus or midline shift is noted. Mild periventricular ischemic gliosis is noted. Age-appropriate atrophy is noted as well. Portions of the visualized paranasal sinuses are normal. No obvious bony calvarial defect is noted. IMPRESSION: No acute intracranial bleeds or extra-axial collections. No acute territorial vascular infarction. Scattered bilateral subcortical infarcts noted again. No herniation or hydrocephalus or midl ine shift. Chronic white matter ischemic disease and atrophy . at 1608 Reported and signed by: Will Blair M.D. PAGE 1 Signed Report ( CONTINUED) Name: LOUIE JOHNSTON [facility] : 1935 Age/S: 84 / M [address] nit #: [id number] Loc: [place] [address] Phys: Macrina Morin DO Acct: [id number] Dis Date: Status: REG ER PHONE #: [phone] Exam Date: 08/30/2019 1605 FAX # : [phone] Reason: CODE SEPSIS EXAMS: CPT CODE: [id number] CT HEAD/BRAIN W/O CONT [id number] <Continued> CC: Cornel Gillespie DO; Macrina Morin DO Technologist:Ashleigh Brown RT(R); Jolie CTDI: DLP: Trnscb Date/Time: 08/30/2019 (1608) [email or web address] Orig Print D/T: S: 08/30/2019 (8191) PAGE 2 Signed Report - XR CHEST 1 [id number] 15:30:00 FAX: Cornel Klein [phone] [place]: St: REG FAX: Macrina Morin DO Name: LOUIE JOHNSTON [facility] : 1935 Age/S: 84/M [address] [facility] Unit #: [id number] Loc: [place] [address] Phys: Macrina Morin DO Acct: [id number] Dis Date: Status: REG ER PHONE #: [phone] Exam Date: 08/30/2019 1506 FAX #: [phone] Reason: CODE SEPSIS EXAMS: CPT CODE: [id number] XR CHEST 1 V [id number] HISTORY: Sepsis. COMPARISON: August 21, 2019. Location: [facility]. Single view chest: Small r ight effusion with bibasal subsegmental atelectasis, greater on the left. Hyperinflation and scarring. No definite infiltrates or congestion. Cardio megaly. IMPRESSION: Small right effusion with bibasal subsegmental atelectasis, greater on the left without infiltrate s or congestion. Electronically Signed by Kim Blair on 08/30 at 1530 Reported and signed by: Will Blair M.D. CC: Cornel Gillespie DO; Macrina Morin DO Technologist: Jacobo LEWIS(R) Trnscrd Date/Time/By: 08/30/2019 (153) : By: [email or web address] Orig Print D/T: S: (1533) PAGE 1 Signed Repo rt LACTIC [id number] 15:16:00* Test Item Value Reference Range Interpretation Comments LACTIC ACID (test code = LACT) 3.0 mmol/L 0.4-1.9 HH Results called to by [email or web address] 08/30/19 1516Critical results verified and read back by Nurse? Y BASIC METABOLIC [id number] 15:13:00* Test Item Value Reference Range Interpretation Comments SODIUM (test code = NA) 138 mmol/L 136-145 N POTASSIUM (test code = K) 4.4 mmol/L 3.5-5.1 N CHLORIDE (test code = CL) 105.0 mmol/L 98-107 N CARBON DIOXIDE (test code = CO2) 23.0 mmol/L 21-32 N ANION GAP (test code = GAP) 14.4 10-20 N GLUCOSE (test code = GLU) 116 mg/dL 74-106 H BLOOD UREA NITROGEN (test code = BUN) 31 mg/dL 7-18 H GLOMERULAR FILTRATION RATE (test code = GFR) > 60 mL/min >=60 Estimated GFR by using Modified MDRD formula.Chronic kidney disease is defined as either kidney damageor GFR <60 mL/min/1.73 m2 for >3 months. CREATININE (test code = CREAT) 1.00 mg/dL 0.7-1.3 N BUN/CREATININE RATIO (test code = BUN/CREA) 31.0 10-20 H CALCIUM (test code = CA) 9.5 mg/dL 8.5-10.1 N HEPATIC FUNCTION [id number] 15:13:00* Test Item Value Reference Range Interpretation Comments TOTAL PROTEIN (test code = PROT) 7.8 gram/dL 6.4-8.2 N ALBUMIN (test code = ALB) 2.8 g/dL 3.4-5.0 L GLOBULIN (test code = GLOB) 5.0 gram/dL 2.7-4.2 H ALBUMIN/GLOBULIN RATIO (test code = A/G) 0.6 0.75-1.50 L BILIRUBIN TOTAL (test code = BILT) 1.10 mg/dL 0.0-1.0 H BILIRUBIN DIRECT (test code = BILD) 0.26 mg/dL 0.0-0.20 H SGOT/AST (test code = AST) 20 IUnit/L 15-37 N SGPT/ALT (test code = ALT) 22 IUnit/L 12-78 N ALKALINE PHOSPHATASE TOTAL (test code = ALKP) 116 IUnit/L 45-117 N Note change in reference range due to change in reagent. [id number] 15:13:00* Test Item Value Reference Range Interpretation Comments TROPONIN-I (test code = TROPI) <0.015 ng/mL 0-0.045 N BASIC METABOLIC [id number] 15:05:00* Test Item Value Reference Range Interpretation Comments SODIUM (test code = NA) 138 mmol/L 136-145 N POTASSIUM (test code = K) 4.4 mmol/L 3.5-5.1 N CHLORIDE (test code = CL) 105.0 mmol/L 98-107 N CARBON DIOXIDE (test code = CO2) mmol/L 21-32 ANION GAP (test code = GAP) 10-20 GLUCOSE (test code = GLU) mg/dL 74-106 BLOOD UREA NITROGEN (test code = BUN) mg/dL 7-18 GLOMERULAR FILTRATION RATE (test code = GFR) mL/min >=60 CREATININE (test code = CREAT) mg/dL 0.7-1.3 BUN/CREATININE RATIO (test code = BUN/CREA) 10-20 CALCIUM (test code = CA) mg/dL 8.5-10.1 HEPATIC FUNCTION [id number] 15:05:00* Test Item Value Reference Range Interpretation Comments TOTAL PROTEIN (test code = PROT) gram/dL 6.4-8.2 ALBUMIN (test code = ALB) g/dL 3.4-5.0 GLOBULIN (test code = GLOB) gram/dL 2.7-4.2 ALBUMIN/GLOBULIN RATIO (test code = A/G) 0.75-1.50 BILIRUBIN TOTAL (test code = BILT) mg/dL 0.0-1.0 BILIRUBIN DIRECT (test code = BILD) mg/dL 0.0-0.20 SGOT/AST (test code = AST) IUnit/L 15-37 SGPT/ALT (test code = ALT) IUnit/L 12-78 ALKALINE PHOSPHATASE TOTAL (test code = ALKP) IUnit/L 45-117 [id number] 15:05:00* Test Item Value Reference Range Interpretation Comments TROPONIN-I (test code = TROPI) ng/mL 0-0.045 PROTHROMBIN [id number] 14:56:00* Test Item Value Reference Range Interpretation Comments PROTHROMBIN TIME PATIENT (test code = PTP) 13.7 seconds 9.0-14.0 N INTERNATIONAL NORMAL RATIO (test code = INR) 1.2 0.8-1.2 N The therapeutic range for oral anticoagulant therapy formost indications is an international normalized ratio (INR)of between 2.0 and 3.0. The recommended therapeutic INRrange for various clinical situations is listed below: Clinical Situation INR range Pulmonary e mbolism treatment (2.0-3.0)Venous thrombosis treatmentVenous thrombosis prophylaxis (high risk surgery)Prevention of systemic embolism from: Acute myocardial infarction Valvular heart disease Atrial fibrillation Mechanical prosthetic heart valves (2.5-3.5) IS PATIENT ON ANTICOAGULANTS? NTHROMBOPLASTIN TIME [id number] 14:56:00* Test Item Value Reference Range Interpretation Comments THROMBOPLASTIN TIME PARTIAL (test code = PTT) 34.6 seconds 25.0-36. 5 N IS PATIENT ON ANTICOAGULANTS? NARTERIAL BLOOD [id number] 14:53:00* Test Item Value Reference Range Interpretation Comments ARTERIAL BLOOD GAS PH (test code = PHA) 7.45 7.35-7.45 N ARTERIAL BLOOD GAS PCO2 (test code = PCO2A) 27.7 mm Hg 35-45 L ARTERIAL BLOOD GAS PO2 (test code = PO2A) 233.6 mmHg 80-100 H BICARBONATE TOTAL HCO3 (test code = HCO3) 18.6 mmol/L 23.0-27.0 L BASE EXCESS (test code = KEILA) -4.0 mmol/L -3.0-5.0 LL Results called to and read back by 14:53 - 08/30/2019; by SOHAIL ABG O2 SATURATION (test code = SATA) 99.2 % 90.0-98.0 H ABG TYPE (test code = TYPEA) Arterial FIO2 (test code = FIO2A) 100.0 ABG SITE (test code = SITEA) Lt RADIAL ARTERY MODIFIED ALLENS (test code = MODALL) Yes CHECK PERFORMED HEMATOCRIT (test code = HCT/ABG) 41 % 42-52 L TOTAL HGB (test code = THB) 14.1 gram/dL 13.0-17.5 N HGB O2 SAT (test code = HBOSAT) 98.0 % 94.00-98.00 N CARBOXYHEMOGLOBIN (test code = HOHGBT) 0.9 %totalHg 0.5-1.5 N METHEMOGLOBIN (test code = METHGB) 0.3 % 0.0-1.50 N O2 CONTENT (test code = O2CT) 19.9 % vol 18.0-22.0 N CBC W/AUTO [id number] 14:50:00* Test Item Value Reference Range Interpretation Comments WHITE BLOOD CELL (test code = WBC) 12.3 K/mm3 4.5-12.5 N RED BLOOD CELL (test code = RBC) 5.44 mill/mm3 4.0-5.8 N HEMOGLOBIN (test code = HGB) 15.6 gram/dL 13.0-17.5 N HEMATOCRIT (test code = HCT) 48.1 % 42.0-52.0 N MEAN CELL VOLUME (test code = MCV) 88.4 fL 80-98 N MEAN CELL HGB (test code = MCH) 28.7 picogram 27.0-33.0 N MEAN CELL HGB CONCETRATION (test code = MCHC) 32.4 gram/dL 33.0-36. 0 L RED CELL DISTRIBUTION WIDTH (test code = RDW) 13.8 % 11.6-16. 2 N RED CELL DISTRIBUTION WIDTH SD (test code = RDW-SD) 44.2 fL 37 .0-51.0 N PLATELET COUNT (test code = PLT) 280 K/mm3 150-450 N MEAN PLATELET VOLUME (test code = MPV) 11.0 fL 6.7-11.0 N NEUTROPHIL % (test code = NT%) 68.8 % 39.0-69.0 N IMMATURE GRANULOCYTE % (test code = IG%) 0.9 % 0.0-5.0 N LYMPHOCYTE % (test code = LY%) 21.4 % 25.0-55.0 L MONOCYTE % (test code = MO%) 8.6 % 0.0-10.0 N EOSINOPHIL % (test code = EO%) 0.1 % 0.0-5.0 N BASOPHIL % (test code = BA%) 0.2 % 0.0-1.0 N NUCLEATED RBC % (test code = NRBC%) 0.0 % 0-0 N NEUTROPHIL # (test code = NT#) 8.47 K/mm3 1.8-7.7 H IMMATURE GRANULOCYTE # (test code = IG#) 0.11 x10 3/uL 0-0.03 H LYMPHOCYTE # (test code = LY#) 2.63 K/mm3 1.0-5.0 N MONOCYTE # (test code = MO#) 1.06 K/mm3 0-0.8 H EOSINOPHIL # (test code = EO#) 0.01 K/mm3 0.0-0.5 N BASOPHIL # (test code = BA#) 0.03 K/mm3 0.0-0.2 N NUCLEATED RBC # (test code = NRBC#) 0.00 K/mm3 0.0-0.1 N CBC W/AUTO [id number] 14:49:00* Test Item Value Reference Range Interpretation Comments WHITE BLOOD CELL (test code = WBC) K/mm3 4.5-12.5 RED BLOOD CELL (test code = RBC) mill/mm3 4.0-5.8 HEMOGLOBIN (test code = HGB) 15.6 gram/dL 13.0-17.5 N HEMATOCRIT (test code = HCT) 48.1 % 42.0-52.0 N MEAN CELL VOLUME (test code = MCV) fL 80-98 MEAN CELL HGB (test code = MCH) picogram 27.0-33.0 MEAN CELL HGB CONCETRATION (test code = MCHC) gram/dL 33.0-36. 0 RED CELL DISTRIBUTION WIDTH (test code = RDW) % 11.6-16. 2 RED CELL DISTRIBUTION WIDTH SD (test code = RDW-SD) fL 37 .0-51.0 PLATELET COUNT (test code = PLT) K/mm3 150-450 MEAN PLATELET VOLUME (test code = MPV) fL 6.7-11.0 NEUTROPHIL % (test code = NT%) % 39.0-69.0 IMMATURE GRANULOCYTE % (test code = IG%) % 0.0-5.0 LYMPHOCYTE % (test code = LY%) % 25.0-55.0 MONOCYTE % (test code = MO%) % 0.0-10.0 EOSINOPHIL % (test code = EO%) % 0.0-5.0 BASOPHIL % (test code = BA%) % 0.0-1.0 NEUTROPHIL # (test code = NT#) K/mm3 1.8-7.7 LYMPHOCYTE # (test code = LY#) K/mm3 1.0-5.0 MONOCYTE # (test code = MO#) K/mm3 0-0.8 EOSINOPHIL # (test code = EO#) K/mm3 0.0-0.5 BASOPHIL # (test code = BA#) K/mm3 0.0-0.2 [id number] 14:32:00* Test Item Value Reference Range Interpretation Comments GLUBED (test code = GLUBED) 103 mg/dL 74-106 N Performed by certified switch operators supervisor at [facility] [id number] 14:10:00* Test Item Value Reference Range Interpretation Comments GLUBED (test code = GLUBED) 104 mg/dL 74-106 N Performed by certified switch operators supervisor at [facility] COMPREHENSIVE METABOLIC [id number] 05:05:00* Test Item Value Reference Range Interpretation Comments SODIUM (test code = NA) 139 mmol/L 136-145 N POTASSIUM (test code = K) 3.8 mmol/L 3.5-5.1 N CHLORIDE (test code = CL) 102.0 mmol/L 98-107 N CARBON DIOXIDE (test code = CO2) 31.0 mmol/L 21-32 N ANION GAP (test code = GAP) 9.8 10-20 L GLUCOSE (test code = GLU) 112 mg/dL 74-106 H BLOOD UREA NITROGEN (test code = BUN) 25 mg/dL 7-18 H GLOMERULAR FILTRATION RATE (test code = GFR) > 60 mL/min >=60 Estimated GFR by using Modified MDRD formula.Chronic kidney disease is defined as either kidney damageor GFR <60 mL/min/1.73 m2 for >3 months. CREATININE (test code = CREAT) 1.00 mg/dL 0.7-1.3 N BUN/CREATININE RATIO (test code = BUN/CREA) 25.0 10-20 H TOTAL PROTEIN (test code = PROT) 6.7 gram/dL 6.4-8.2 N ALBUMIN (test code = ALB) 2.9 g/dL 3.4-5.0 L GLOBULIN (test code = GLOB) 3.8 gram/dL 2.7-4.2 N ALBUMIN/GLOBULIN RATIO (test code = A/G) 0.8 0.75-1.50 N CALCIUM (test code = CA) 8.3 mg/dL 8.5-10.1 L BILIRUBIN TOTAL (test code = BILT) 0.80 mg/dL 0.0-1.0 N SGOT/AST (test code = AST) 34 IUnit/L 15-37 N SGPT/ALT (test code = ALT) 46 IUnit/L 12-78 N ALKALINE PHOSPHATASE TOTAL (test code = ALKP) 146 IUnit/L 45-117 H Note change in reference range due to change in reagent. THYROID STIMULATING [id number] 05:05:00* Test Item Value Reference Range Interpretation Comments THYROID STIMULATING HORMONE (test code = TSH) 3.910 uIU/mL 0.36-3.7 4 H TSH REFERENCE RANGES: EUTHYROID: 0.35 - 4.3 mIU/mL HYPO : > 5.5 mIU/mL HYPER : < 0.35 mIU/mL [id number] 05:05:00* Test Item Value Reference Range Interpretation Comments TROPONIN-I (test code = TROPI) <0.015 ng/mL 0-0.045 N COMPREHENSIVE METABOLIC [id number] 04:46:00* Test Item Value Reference Range Interpretation Comments SODIUM (test code = NA) 139 mmol/L 136-145 N POTASSIUM (test code = K) 3.8 mmol/L 3.5-5.1 N CHLORIDE (test code = CL) 102.0 mmol/L 98-107 N CARBON DIOXIDE (test code = CO2) mmol/L 21-32 ANION GAP (test code = GAP) 10-20 GLUCOSE (test code = GLU) mg/dL 74-106 BLOOD UREA NITROGEN (test code = BUN) mg/dL 7-18 GLOMERULAR FILTRATION RATE (test code = GFR) mL/min >=60 CREATININE (test code = CREAT) mg/dL 0.7-1.3 BUN/CREATININE RATIO (test code = BUN/CREA) 10-20 TOTAL PROTEIN (test code = PROT) gram/dL 6.4-8.2 ALBUMIN (test code = ALB) g/dL 3.4-5.0 GLOBULIN (test code = GLOB) gram/dL 2.7-4.2 ALBUMIN/GLOBULIN RATIO (test code = A/G) 0.75-1.50 CALCIUM (test code = CA) mg/dL 8.5-10.1 BILIRUBIN TOTAL (test code = BILT) mg/dL 0.0-1.0 SGOT/AST (test code = AST) IUnit/L 15-37 SGPT/ALT (test code = ALT) IUnit/L 12-78 ALKALINE PHOSPHATASE TOTAL (test code = ALKP) IUnit/L 45-117 THYROID STIMULATING [id number] 04:46:00* Test Item Value Reference Range Interpretation Comments THYROID STIMULATING HORMONE (test code = TSH) uIU/mL 0.36-3.7 4 [id number] 04:46:00* Test Item Value Reference Range Interpretation Comments TROPONIN-I (test code = TROPI) ng/mL 0-0.045 CBC W/AUTO [id number] 04:29:00* Test Item Value Reference Range Interpretation Comments WHITE BLOOD CELL (test code = WBC) 4.9 K/mm3 4.5-12.5 N RED BLOOD CELL (test code = RBC) 4.43 mill/mm3 4.0-5.8 N HEMOGLOBIN (test code = HGB) 12.8 gram/dL 13.0-17.5 L HEMATOCRIT (test code = HCT) 40.2 % 42.0-52.0 L MEAN CELL VOLUME (test code = MCV) 90.7 fL 80-98 N MEAN CELL HGB (test code = MCH) 28.9 picogram 27.0-33.0 N MEAN CELL HGB CONCETRATION (test code = MCHC) 31.8 gram/dL 33.0-36. 0 L RED CELL DISTRIBUTION WIDTH (test code = RDW) 14.4 % 11.6-16. 2 N RED CELL DISTRIBUTION WIDTH SD (test code = RDW-SD) 47.8 fL 37 .0-51.0 N PLATELET COUNT (test code = PLT) 151 K/mm3 150-450 N MEAN PLATELET VOLUME (test code = MPV) 10.5 fL 6.7-11.0 N NEUTROPHIL % (test code = NT%) 78.9 % 39.0-69.0 H IMMATURE GRANULOCYTE % (test code = IG%) 0.4 % 0.0-5.0 N LYMPHOCYTE % (test code = LY%) 13.1 % 25.0-55.0 L MONOCYTE % (test code = MO%) 7.4 % 0.0-10.0 N EOSINOPHIL % (test code = EO%) 0.0 % 0.0-5.0 N BASOPHIL % (test code = BA%) 0.2 % 0.0-1.0 N NUCLEATED RBC % (test code = NRBC%) 0.0 % 0-0 N NEUTROPHIL # (test code = NT#) 3.85 K/mm3 1.8-7.7 N IMMATURE GRANULOCYTE # (test code = IG#) 0.02 x10 3/uL 0-0.03 N LYMPHOCYTE # (test code = LY#) 0.64 K/mm3 1.0-5.0 L MONOCYTE # (test code = MO#) 0.36 K/mm3 0-0.8 N EOSINOPHIL # (test code = EO#) 0.00 K/mm3 0.0-0.5 N BASOPHIL # (test code = BA#) 0.01 K/mm3 0.0-0.2 N NUCLEATED RBC # (test code = NRBC#) 0.00 K/mm3 0.0-0.1 N [id number] 22:06:00* Test Item Value Reference Range Interpretation Comments TROPONIN-I (test code = TROPI) 0.016 ng/mL 0-0.045 N COMMENTS TO SHOP TECHNICIAN: COLLECT 3 HOURS AFTER PREVIOUS [id number] 16:58:00* Test Item Value Reference Range Interpretation Comments TROPONIN-I (test code = TROPI) <0.015 ng/mL 0-0.045 N COMMENTS TO SHOP TECHNICIAN: COLLECT 3 HOURS AFTER PREVIOUS SAMPLEB-TYPE NATRIURETIC [id number] 11:07:00* Test Item Value Reference Range Interpretation Comments B-TYPE NATRIURETIC PEPTIDE (test code = BNP) 799.89 pgram/mL 0-100 H BASIC METABOLIC [id number] 10:38:00* Test Item Value Reference Range Interpretation Comments SODIUM (test code = NA) 140 mmol/L 136-145 N POTASSIUM (test code = K) 3.9 mmol/L 3.5-5.1 N CHLORIDE (test code = CL) 107.0 mmol/L 98-107 N CARBON DIOXIDE (test code = CO2) 22.0 mmol/L 21-32 N ANION GAP (test code = GAP) 14.9 10-20 N GLUCOSE (test code = GLU) 108 mg/dL 74-106 H BLOOD UREA NITROGEN (test code = BUN) 28 mg/dL 7-18 H GLOMERULAR FILTRATION RATE (test code = GFR) 53 mL/min >=60 Estimated GFR by using Modified MDRD formula.Chronic kidney disease is defined as either kidney damageor GFR <60 mL/min/1.73 m2 for >3 months. CREATININE (test code = CREAT) 1.30 mg/dL 0.7-1.3 N BUN/CREATININE RATIO (test code = BUN/CREA) 21.5 10-20 H CALCIUM (test code = CA) 8.8 mg/dL 8.5-10.1 N HEPATIC FUNCTION [id number] 10:38:00* Test Item Value Reference Range Interpretation Comments TOTAL PROTEIN (test code = PROT) 7.8 gram/dL 6.4-8.2 N ALBUMIN (test code = ALB) 3.3 g/dL 3.4-5.0 L GLOBULIN (test code = GLOB) 4.5 gram/dL 2.7-4.2 H ALBUMIN/GLOBULIN RATIO (test code = A/G) 0.7 0.75-1.50 L BILIRUBIN TOTAL (test code = BILT) 1.10 mg/dL 0.0-1.0 H BILIRUBIN DIRECT (test code = BILD) 0.36 mg/dL 0.0-0.20 H SGOT/AST (test code = AST) 43 IUnit/L 15-37 H SGPT/ALT (test code = ALT) 59 IUnit/L 12-78 N ALKALINE PHOSPHATASE TOTAL (test code = ALKP) 142 IUnit/L 45-117 H Note change in reference range due to change in reagent. [id number] 10:38:00* Test Item Value Reference Range Interpretation Comments LIPASE (test code = LIP) 57 U/L 73.0-393.0 L [id number] 10:38:00* Test Item Value Reference Range Interpretation Comments MAGNESIUM (test code = MAG) 2.1 mg/dL 1.8-2.4 N [id number] 10:38:00* Test Item Value Reference Range Interpretation Comments TROPONIN-I (test code = TROPI) <0.015 ng/mL 0-0.045 N BASIC METABOLIC [id number] 10:31:00* Test Item Value Reference Range Interpretation Comments SODIUM (test code = NA) 140 mmol/L 136-145 N POTASSIUM (test code = K) 3.9 mmol/L 3.5-5.1 N CHLORIDE (test code = CL) 107.0 mmol/L 98-107 N CARBON DIOXIDE (test code = CO2) mmol/L 21-32 ANION GAP (test code = GAP) 10-20 GLUCOSE (test code = GLU) mg/dL 74-106 BLOOD UREA NITROGEN (test code = BUN) mg/dL 7-18 GLOMERULAR FILTRATION RATE (test code = GFR) mL/min >=60 CREATININE (test code = CREAT) mg/dL 0.7-1.3 BUN/CREATININE RATIO (test code = BUN/CREA) 10-20 CALCIUM (test code = CA) mg/dL 8.5-10.1 HEPATIC FUNCTION [id number] 10:31:00* Test Item Value Reference Range Interpretation Comments TOTAL PROTEIN (test code = PROT) gram/dL 6.4-8.2 ALBUMIN (test code = ALB) g/dL 3.4-5.0 GLOBULIN (test code = GLOB) gram/dL 2.7-4.2 ALBUMIN/GLOBULIN RATIO (test code = A/G) 0.75-1.50 BILIRUBIN TOTAL (test code = BILT) mg/dL 0.0-1.0 BILIRUBIN DIRECT (test code = BILD) mg/dL 0.0-0.20 SGOT/AST (test code = AST) IUnit/L 15-37 SGPT/ALT (test code = ALT) IUnit/L 12-78 ALKALINE PHOSPHATASE TOTAL (test code = ALKP) IUnit/L 45-117 [id number] 10:31:00* Test Item Value Reference Range Interpretation Comments LIPASE (test code = LIP) U/L 73.0-393.0 [id number] 10:31:00* Test Item Value Reference Range Interpretation Comments MAGNESIUM (test code = MAG) mg/dL 1.8-2.4 [id number] 10:31:00* Test Item Value Reference Range Interpretation Comments TROPONIN-I (test code = TROPI) ng/mL 0-0.045 PROTHROMBIN [id number] 10:21:00* Test Item Value Reference Range Interpretation Comments PROTHROMBIN TIME PATIENT (test code = PTP) 13.6 seconds 9.0-14.0 N INTERNATIONAL NORMAL RATIO (test code = INR) 1.2 0.8-1.2 N The therapeutic range for oral anticoagulant therapy formost indications is an international normalized ratio (INR)of between 2.0 and 3.0. The recommended therapeutic INRrange for various clinical situations is listed below: Clinical Situation INR range Pulmonary e mbolism treatment (2.0-3.0)Venous thrombosis treatmentVenous thrombosis prophylaxis (high risk surgery)Prevention of systemic embolism from: Acute myocardial infarction Valvular heart disease Atrial fibrillation Mechanical prosthetic heart valves (2.5-3.5) IS PATIENT ON ANTICOAGULANTS? NTHROMBOPLASTIN TIME [id number] 10:21:00* Test Item Value Reference Range Interpretation Comments THROMBOPLASTIN TIME PARTIAL (test code = PTT) 27.1 seconds 25.0-36. 5 N IS PATIENT ON ANTICOAGULANTS? N- XR CHEST 1 [id number] 10:15:00 FAX: Cornel Klein [phone] [place]: B St: REG FAX: Merry Pierson MD [phone] Name: LOUIE JOHNSTON [facility] : 1935 Age/S: 84/M [address] [facility] Unit #: [id number] Loc: [place] [address] Phys: Merry Pierson MD Acct: [id number] Dis Date: Status: REG ER PHONE #: [phone] Exam Date: 08/21/2019 1010 FAX #: [phone] Reason: CHEST PAIN EXAMS: CPT CODE: [id number] XR CHEST 1 V 17004 HISTORY: Chest pain. COMPARISON: August 02, 2019. Location: . COPD with upper lobe predominance. B rudy scarring. No infiltrates or congestion. Hyperinflation. Mild cardi omegaly. IMPRESSION: No infiltrates or congest ion. COPD. Small right effusion. at 1015 Reported and signed by: Will Blair M.D. CC: Cornel Gillespie DO; Merry Pierson MD Technologist: ALIX SEN RT(R) Trnscrd Date/Time/By: 08/21/2019 (1015) : By: [email or web address] Orig Print D/T: S: 08/21/2019 (1019) PAGE 1 Signed Report CBC W/O [id number] 10:09:00* Test Item Value Reference Range Interpretation Comments WHITE BLOOD CELL (test code = WBC) K/mm3 4.5-12.5 RED BLOOD CELL (test code = RBC) mill/mm3 4.0-5.8 HEMOGLOBIN (test code = HGB) 13.7 gram/dL 13.0-17.5 N HEMATOCRIT (test code = HCT) 43.3 % 42.0-52.0 N MEAN CELL VOLUME (test code = MCV) fL 80-98 MEAN CELL HGB (test code = MCH) picogram 27.0-33.0 MEAN CELL HGB CONCETRATION (test code = MCHC) gram/dL 33.0-36. 0 RED CELL DISTRIBUTION WIDTH (test code = RDW) % 11.6-16. 2 PLATELET COUNT (test code = PLT) K/mm3 150-450 MEAN PLATELET VOLUME (test code = MPV) fL 6.7-11.0 CBC W/O [id number] 10:09:00* Test Item Value Reference Range Interpretation Comments WHITE BLOOD CELL (test code = WBC) 6.4 K/mm3 4.5-12.5 N RED BLOOD CELL (test code = RBC) 4.75 mill/mm3 4.0-5.8 N HEMOGLOBIN (test code = HGB) 13.7 gram/dL 13.0-17.5 N HEMATOCRIT (test code = HCT) 43.3 % 42.0-52.0 N MEAN CELL VOLUME (test code = MCV) 91.2 fL 80-98 N MEAN CELL HGB (test code = MCH) 28.8 picogram 27.0-33.0 N MEAN CELL HGB CONCETRATION (test code = MCHC) 31.6 gram/dL 33.0-36. 0 L RED CELL DISTRIBUTION WIDTH (test code = RDW) 14.5 % 11.6-16. 2 N PLATELET COUNT (test code = PLT) 194 K/mm3 150-450 N MEAN PLATELET VOLUME (test code = MPV) 11.2 fL 6.7-11.0 H COMPREHENSIVE METABOLIC [id number] 04:11:00* Test Item Value Reference Range Interpretation Comments SODIUM (test code = NA) 140 mmol/L 136-145 N POTASSIUM (test code = K) 3.2 mmol/L 3.5-5.1 L CHLORIDE (test code = CL) 100.0 mmol/L 98-107 N CARBON DIOXIDE (test code = CO2) 32.0 mmol/L 21-32 N ANION GAP (test code = GAP) 11.2 10-20 N GLUCOSE (test code = GLU) 96 mg/dL 74-106 N BLOOD UREA NITROGEN (test code = BUN) 37 mg/dL 7-18 H GLOMERULAR FILTRATION RATE (test code = GFR) 48 mL/min >=60 Estimated GFR by using Modified MDRD formula.Chronic kidney disease is defined as either kidney damageor GFR <60 mL/min/1.73 m2 for >3 months. CREATININE (test code = CREAT) 1.40 mg/dL 0.7-1.3 H BUN/CREATININE RATIO (test code = BUN/CREA) 26.4 10-20 H TOTAL PROTEIN (test code = PROT) 6.9 gram/dL 6.4-8.2 N ALBUMIN (test code = ALB) 3.1 g/dL 3.4-5.0 L GLOBULIN (test code = GLOB) 3.8 gram/dL 2.7-4.2 N ALBUMIN/GLOBULIN RATIO (test code = A/G) 0.8 0.75-1.50 N CALCIUM (test code = CA) 8.7 mg/dL 8.5-10.1 N BILIRUBIN TOTAL (test code = BILT) 0.70 mg/dL 0.0-1.0 N SGOT/AST (test code = AST) 27 IUnit/L 15-37 N SGPT/ALT (test code = ALT) 42 IUnit/L 12-78 N ALKALINE PHOSPHATASE TOTAL (test code = ALKP) 111 IUnit/L 45-117 N Note change in reference range due to change in reagent. CBC W/AUTO [id number] 04:01:00* Test Item Value Reference Range Interpretation Comments WHITE BLOOD CELL (test code = WBC) 5.3 K/mm3 4.5-12.5 N RED BLOOD CELL (test code = RBC) 4.28 mill/mm3 4.0-5.8 N HEMOGLOBIN (test code = HGB) 12.3 gram/dL 13.0-17.5 L HEMATOCRIT (test code = HCT) 37.6 % 42.0-52.0 L MEAN CELL VOLUME (test code = MCV) 87.9 fL 80-98 N MEAN CELL HGB (test code = MCH) 28.7 picogram 27.0-33.0 N MEAN CELL HGB CONCETRATION (test code = MCHC) 32.7 gram/dL 33.0-36. 0 L RED CELL DISTRIBUTION WIDTH (test code = RDW) 14.1 % 11.6-16. 2 N RED CELL DISTRIBUTION WIDTH SD (test code = RDW-SD) 44.6 fL 37 .0-51.0 N PLATELET COUNT (test code = PLT) 175 K/mm3 150-450 N MEAN PLATELET VOLUME (test code = MPV) 11.2 fL 6.7-11.0 H NEUTROPHIL % (test code = NT%) 63.7 % 39.0-69.0 N IMMATURE GRANULOCYTE % (test code = IG%) 0.4 % 0.0-5.0 N LYMPHOCYTE % (test code = LY%) 18.8 % 25.0-55.0 L MONOCYTE % (test code = MO%) 14.8 % 0.0-10.0 H EOSINOPHIL % (test code = EO%) 1.7 % 0.0-5.0 N BASOPHIL % (test code = BA%) 0.6 % 0.0-1.0 N NUCLEATED RBC % (test code = NRBC%) 0.0 % 0-0 N NEUTROPHIL # (test code = NT#) 3.39 K/mm3 1.8-7.7 N IMMATURE GRANULOCYTE # (test code = IG#) 0.02 x10 3/uL 0-0.03 N LYMPHOCYTE # (test code = LY#) 1.00 K/mm3 1.0-5.0 N MONOCYTE # (test code = MO#) 0.79 K/mm3 0-0.8 N EOSINOPHIL # (test code = EO#) 0.09 K/mm3 0.0-0.5 N BASOPHIL # (test code = BA#) 0.03 K/mm3 0.0-0.2 N NUCLEATED RBC # (test code = NRBC#) 0.00 K/mm3 0.0-0.1 N [id number] 05:28:00* Test Item Value Reference Range Interpretation Comments GLYCOSYLATED HEMOGLOBIN (HA1C) (test code = GLYHGB) 5.8 % HbA1 SUGGESTED DIAGNOSIS: HbA1C (%) Diabetic >6.4Prediabetes 5.7 - 6.4Normal <5.7 ESTIMATED AVERAGE GLUCOSE (test code = EAG) 120 MG/DL COMPREHENSIVE METABOLIC [id number] 04:30:00* Test Item Value Reference Range Interpretation Comments SODIUM (test code = NA) 144 mmol/L 136-145 N POTASSIUM (test code = K) 3.9 mmol/L 3.5-5.1 N CHLORIDE (test code = CL) 106.0 mmol/L 98-107 N CARBON DIOXIDE (test code = CO2) 32.0 mmol/L 21-32 N ANION GAP (test code = GAP) 9.9 10-20 L GLUCOSE (test code = GLU) 78 mg/dL 74-106 N BLOOD UREA NITROGEN (test code = BUN) 31 mg/dL 7-18 H GLOMERULAR FILTRATION RATE (test code = GFR) > 60 mL/min >=60 Estimated GFR by using Modified MDRD formula.Chronic kidney disease is defined as either kidney damageor GFR <60 mL/min/1.73 m2 for >3 months. CREATININE (test code = CREAT) 1.00 mg/dL 0.7-1.3 N BUN/CREATININE RATIO (test code = BUN/CREA) 31.0 10-20 H TOTAL PROTEIN (test code = PROT) 6.3 gram/dL 6.4-8.2 L ALBUMIN (test code = ALB) 3.1 g/dL 3.4-5.0 L GLOBULIN (test code = GLOB) 3.2 gram/dL 2.7-4.2 N ALBUMIN/GLOBULIN RATIO (test code = A/G) 1.0 0.75-1.50 N CALCIUM (test code = CA) 8.4 mg/dL 8.5-10.1 L BILIRUBIN TOTAL (test code = BILT) 0.90 mg/dL 0.0-1.0 N SGOT/AST (test code = AST) 34 IUnit/L 15-37 N SGPT/ALT (test code = ALT) 46 IUnit/L 12-78 N ALKALINE PHOSPHATASE TOTAL (test code = ALKP) 117 IUnit/L 45-117 N Note change in reference range due to change in reagent. LIPID PROFILE (CORONARY RISK)2019-08-03 04:30:00* Test Item Value Reference Range Interpretation Comments TRIGLYCERIDES (test code = TRIG) 66 mg/dL 20-150 N CHOLESTEROL (test code = CHOL) 130 mg/dL 0-200 N CHOLESTEROL/HDL RATIO (test code = CHOLHDL) 2.0 RATIO 0-4.9 N RISK ASSOCIATED WITH CHOL/HDL RATIOS: Risk Male Female1/2 AVERAGE 3.43 3.27AVERAGE 4.97 4.442X AVERAGE 9.55 7.053X AVERAGE 23.39 11.04 REFERENCE VALUE IS RELATED TO RISK LEVELS ASRECOMMENDED BY THE ALYSSA. HEART, LUNG, AND BLOOD INST. HDL CHOLESTEROL (test code = HDL) 53 mg/dL 40-60 N LIPOPROTEIN LDL (test code = LDL) 61 mg/dL 100-129 L Reference Interval: mg/dL mmol/L Optimal <100 <2.6Near/above optimal 100-129 2.6- 3.3Borderline High 130-159 3.4-4.1High 160-189 4.1-4.9Very High >=190 >=4.9========= This LDL result is a direct measurement.========= THYROID STIMULATING [id number] 04:30:00* Test Item Value Reference Range Interpretation Comments THYROID STIMULATING HORMONE (test code = TSH) 9.020 uIU/mL 0.36-3.7 4 H TSH REFERENCE RANGES: EUTHYROID: 0.35 - 4.3 mIU/mL HYPO : > 5.5 mIU/mL HYPER : < 0.35 mIU/mL [id number] 04:13:00* Test Item Value Reference Range Interpretation Comments TROPONIN-I (test code = TROPI) <0.015 ng/mL 0-0.045 N COMMENTS TO SHOP TECHNICIAN: COLLECT 3 HOURS AFTER PREVIOUS SAMPLECOMPREHENSIVE METABOLIC [id number] 04:10:00* Test Item Value Reference Range Interpretation Comments SODIUM (test code = NA) 144 mmol/L 136-145 N POTASSIUM (test code = K) 3.9 mmol/L 3.5-5.1 N CHLORIDE (test code = CL) 106.0 mmol/L 98-107 N CARBON DIOXIDE (test code = CO2) mmol/L 21-32 ANION GAP (test code = GAP) 10-20 GLUCOSE (test code = GLU) mg/dL 74-106 BLOOD UREA NITROGEN (test code = BUN) mg/dL 7-18 GLOMERULAR FILTRATION RATE (test code = GFR) mL/min >=60 CREATININE (test code = CREAT) mg/dL 0.7-1.3 BUN/CREATININE RATIO (test code = BUN/CREA) 10-20 TOTAL PROTEIN (test code = PROT) gram/dL 6.4-8.2 ALBUMIN (test code = ALB) g/dL 3.4-5.0 GLOBULIN (test code = GLOB) gram/dL 2.7-4.2 ALBUMIN/GLOBULIN RATIO (test code = A/G) 0.75-1.50 CALCIUM (test code = CA) mg/dL 8.5-10.1 BILIRUBIN TOTAL (test code = BILT) mg/dL 0.0-1.0 SGOT/AST (test code = AST) IUnit/L 15-37 SGPT/ALT (test code = ALT) IUnit/L 12-78 ALKALINE PHOSPHATASE TOTAL (test code = ALKP) IUnit/L 45-117 LIPID PROFILE (CORONARY RISK)2019-08-03 04:10:00* Test Item Value Reference Range Interpretation Comments TRIGLYCERIDES (test code = TRIG) mg/dL 20-150 CHOLESTEROL (test code = CHOL) mg/dL 0-200 CHOLESTEROL/HDL RATIO (test code = CHOLHDL) RATIO 0-4.9 HDL CHOLESTEROL (test code = HDL) mg/dL 40-60 LIPOPROTEIN LDL (test code = LDL) mg/dL 100-129 THYROID STIMULATING [id number] 04:10:00* Test Item Value Reference Range Interpretation Comments THYROID STIMULATING HORMONE (test code = TSH) uIU/mL 0.36-3.7 4 CBC W/AUTO [id number] 04:03:00* Test Item Value Reference Range Interpretation Comments WHITE BLOOD CELL (test code = WBC) 4.6 K/mm3 4.5-12.5 N RED BLOOD CELL (test code = RBC) 4.08 mill/mm3 4.0-5.8 N HEMOGLOBIN (test code = HGB) 11.9 gram/dL 13.0-17.5 L HEMATOCRIT (test code = HCT) 36.8 % 42.0-52.0 L MEAN CELL VOLUME (test code = MCV) 90.2 fL 80-98 N MEAN CELL HGB (test code = MCH) 29.2 picogram 27.0-33.0 N MEAN CELL HGB CONCETRATION (test code = MCHC) 32.3 gram/dL 33.0-36. 0 L RED CELL DISTRIBUTION WIDTH (test code = RDW) 14.3 % 11.6-16. 2 N RED CELL DISTRIBUTION WIDTH SD (test code = RDW-SD) 46.8 fL 37 .0-51.0 N PLATELET COUNT (test code = PLT) 154 K/mm3 150-450 N MEAN PLATELET VOLUME (test code = MPV) 11.1 fL 6.7-11.0 H NEUTROPHIL % (test code = NT%) 64.5 % 39.0-69.0 N IMMATURE GRANULOCYTE % (test code = IG%) 0.4 % 0.0-5.0 N LYMPHOCYTE % (test code = LY%) 19.3 % 25.0-55.0 L MONOCYTE % (test code = MO%) 14.1 % 0.0-10.0 H EOSINOPHIL % (test code = EO%) 1.3 % 0.0-5.0 N BASOPHIL % (test code = BA%) 0.4 % 0.0-1.0 N NUCLEATED RBC % (test code = NRBC%) 0.0 % 0-0 N NEUTROPHIL # (test code = NT#) 2.93 K/mm3 1.8-7.7 N IMMATURE GRANULOCYTE # (test code = IG#) 0.02 x10 3/uL 0-0.03 N LYMPHOCYTE # (test code = LY#) 0.88 K/mm3 1.0-5.0 L MONOCYTE # (test code = MO#) 0.64 K/mm3 0-0.8 N EOSINOPHIL # (test code = EO#) 0.06 K/mm3 0.0-0.5 N BASOPHIL # (test code = BA#) 0.02 K/mm3 0.0-0.2 N NUCLEATED RBC # (test code = NRBC#) 0.00 K/mm3 0.0-0.1 N [id number] 22:01:00* Test Item Value Reference Range Interpretation Comments TROPONIN-I (test code = TROPI) <0.015 ng/mL 0-0.045 N COMMENTS TO SHOP TECHNICIAN: COLLECT 3 HOURS AFTER PREVIOUS SAMPLEAG PROSTATE [id number] 20:00:00* Test Item Value Reference Range Interpretation Comments AG PROSTATE SPECIFIC (test code = PSA) 0.90 ng/mL 0.0-4.0 N BASIC METABOLIC [id number] 14:46:00* Test Item Value Reference Range Interpretation Comments SODIUM (test code = NA) 143 mmol/L 136-145 N POTASSIUM (test code = K) 4.2 mmol/L 3.5-5.1 N CHLORIDE (test code = CL) 109.0 mmol/L 98-107 H CARBON DIOXIDE (test code = CO2) 27.0 mmol/L 21-32 N ANION GAP (test code = GAP) 11.2 10-20 N GLUCOSE (test code = GLU) 92 mg/dL 74-106 N BLOOD UREA NITROGEN (test code = BUN) 29 mg/dL 7-18 H GLOMERULAR FILTRATION RATE (test code = GFR) > 60 mL/min >=60 Estimated GFR by using Modified MDRD formula.Chronic kidney disease is defined as either kidney damageor GFR <60 mL/min/1.73 m2 for >3 months. CREATININE (test code = CREAT) 0.90 mg/dL 0.7-1.3 N BUN/CREATININE RATIO (test code = BUN/CREA) 32.2 10-20 H CALCIUM (test code = CA) 9.0 mg/dL 8.5-10.1 N [id number] 14:46:00* Test Item Value Reference Range Interpretation Comments MAGNESIUM (test code = MAG) 2.0 mg/dL 1.8-2.4 N [id number] 14:46:00* Test Item Value Reference Range Interpretation Comments TROPONIN-I (test code = TROPI) <0.015 ng/mL 0-0.045 N PROTHROMBIN [id number] 14:42:00* Test Item Value Reference Range Interpretation Comments PROTHROMBIN TIME PATIENT (test code = PTP) 12.9 seconds 9.0-14.0 N INTERNATIONAL NORMAL RATIO (test code = INR) 1.1 0.8-1.2 N The therapeutic range for oral anticoagulant therapy formost indications is an international normalized ratio (INR)of between 2.0 and 3.0. The recommended therapeutic INRrange for various clinical situations is listed below: Clinical Situation INR range Pulmonary e mbolism treatment (2.0-3.0)Venous thrombosis treatmentVenous thrombosis prophylaxis (high risk surgery)Prevention of systemic embolism from: Acute myocardial infarction Valvular heart disease Atrial fibrillation Mechanical prosthetic heart valves (2.5-3.5) IS PATIENT ON ANTICOAGULANTS? NTHROMBOPLASTIN TIME [id number] 14:42:00* Test Item Value Reference Range Interpretation Comments THROMBOPLASTIN TIME PARTIAL (test code = PTT) 48.3 seconds 25.0-36. 5 H IS PATIENT ON ANTICOAGULANTS? NB-TYPE NATRIURETIC [id number] 14:39:00* Test Item Value Reference Range Interpretation Comments B-TYPE NATRIURETIC PEPTIDE (test code = BNP) 630.73 pgram/mL 0-100 H CBC W/AUTO [id number] 14:19:00* Test Item Value Reference Range Interpretation Comments WHITE BLOOD CELL (test code = WBC) 4.8 K/mm3 4.5-12.5 N RED BLOOD CELL (test code = RBC) 4.59 mill/mm3 4.0-5.8 N HEMOGLOBIN (test code = HGB) 13.3 gram/dL 13.0-17.5 N HEMATOCRIT (test code = HCT) 41.2 % 42.0-52.0 L MEAN CELL VOLUME (test code = MCV) 89.8 fL 80-98 N MEAN CELL HGB (test code = MCH) 29.0 picogram 27.0-33.0 N MEAN CELL HGB CONCETRATION (test code = MCHC) 32.3 gram/dL 33.0-36. 0 L RED CELL DISTRIBUTION WIDTH (test code = RDW) 14.3 % 11.6-16. 2 N RED CELL DISTRIBUTION WIDTH SD (test code = RDW-SD) 47.2 fL 37 .0-51.0 N PLATELET COUNT (test code = PLT) 173 K/mm3 150-450 N MEAN PLATELET VOLUME (test code = MPV) 11.2 fL 6.7-11.0 H NEUTROPHIL % (test code = NT%) 64.2 % 39.0-69.0 N IMMATURE GRANULOCYTE % (test code = IG%) 0.2 % 0.0-5.0 N LYMPHOCYTE % (test code = LY%) 22.8 % 25.0-55.0 L MONOCYTE % (test code = MO%) 11.4 % 0.0-10.0 H EOSINOPHIL % (test code = EO%) 1.0 % 0.0-5.0 N BASOPHIL % (test code = BA%) 0.4 % 0.0-1.0 N NUCLEATED RBC % (test code = NRBC%) 0.0 % 0-0 N NEUTROPHIL # (test code = NT#) 3.09 K/mm3 1.8-7.7 N IMMATURE GRANULOCYTE # (test code = IG#) 0.01 x10 3/uL 0-0.03 N LYMPHOCYTE # (test code = LY#) 1.10 K/mm3 1.0-5.0 N MONOCYTE # (test code = MO#) 0.55 K/mm3 0-0.8 N EOSINOPHIL # (test code = EO#) 0.05 K/mm3 0.0-0.5 N BASOPHIL # (test code = BA#) 0.02 K/mm3 0.0-0.2 N NUCLEATED RBC # (test code = NRBC#) 0.00 K/mm3 0.0-0.1 N MANUAL DIFF REQUIRED (test code = MDIFF) NO BASIC METABOLIC [id number] 14:18:00* Test Item Value Reference Range Interpretation Comments SODIUM (test code = NA) 143 mmol/L 136-145 N POTASSIUM (test code = K) 4.2 mmol/L 3.5-5.1 N CHLORIDE (test code = CL) 109.0 mmol/L 98-107 H CARBON DIOXIDE (test code = CO2) mmol/L 21-32 ANION GAP (test code = GAP) 10-20 GLUCOSE (test code = GLU) mg/dL 74-106 BLOOD UREA NITROGEN (test code = BUN) mg/dL 7-18 GLOMERULAR FILTRATION RATE (test code = GFR) mL/min >=60 CREATININE (test code = CREAT) mg/dL 0.7-1.3 BUN/CREATININE RATIO (test code = BUN/CREA) 10-20 CALCIUM (test code = CA) mg/dL 8.5-10.1 [id number] 14:18:00* Test Item Value Reference Range Interpretation Comments MAGNESIUM (test code = MAG) mg/dL 1.8-2.4 [id number] 14:18:00* Test Item Value Reference Range Interpretation Comments TROPONIN-I (test code = TROPI) ng/mL 0-0.045 - XR CHEST 1 [id number] 13:27:00 FAX: Effie Rosado [phone] [place]: St: REG FAX: Cornel Klein [phone] Name: LOUIE JOHNSTON [facility] : 1935 Age/S: 84/M [address] [facility] Unit #: [id number] Loc: [place] [address] Phys: Effie Gann MD Acct: [id number] Dis Date: Status: REG ER PHONE #: [phone] Exam Date: 08/02/2019 1242 FAX #: [phone] Reason: Shortness of Breath EXAMS: CPT CODE: [id number] XR CHEST 1 V 94416 REASON FOR EXAM: Shortness of Breath Exam Order Date: 08/02/2019 12:22 PM Ordering Kim: Effie Gann MD PROCEDURE: - XR CHEST 1 V COMPARISON: Frontal chest x-ray September 30, 2017 FINDINGS: There is a small pleural effusion that blunts the right costophrenic recess. There is also mild alvarez bsegmental atelectasis in the lung bases. There is a calcified granuloma i n the right midlung. The lungs are hyperinflated. Cardiomedi astinal silhouette is normal in size for technique. The mediastinal contou rs are within normal limits. Mild degenerative changes are present in the spine. Surgical clips project over the epigastrium. IMPRESSION: Small right-sided pleural effusion. Hyperinflation of the lungs may represent an air-trapping process and was also present on the prior exam. Mild subsegmental atelectasis is pre sent in the lung bases. Location: [facility] Electronical ly Signed by Neil Ewing MD on 08/02/2019 at 1327 Report ed and signed by: Neil Ewing MD CC: Effie Gann MD; Wolfgang Gillespie DO Technologist: RT JEREMÍAS(Esthela) Trnscrd Date/Time/By: 08/02/2019 (4073) : By: [email or web address] [facility] P rint D/T: S: 08/02/2019 (5295) PAGE 1 Signed Report - US ABDOMEN [id number] 16:20:00 Name: LOUIE JOHNSTON [facility] : 1935 Age/S: 83 / M [address] [facility] Unit #: [id number] Loc: [place] [address] Phys: Cornel Gillespie DO Acct: [id number] Dis Date: Status: REG CLI PHONE #: [phone] Exam Date: 10/01/2018 1541 FAX #: [phone] Reason: R/O AAA EXAMS: CPT CODE: [id number] US ABDOMEN LTD 85220 EXAM: Ultrasound abdomen, limited; INFORMATION: HISTORY of syncope; AAA? FINDINGS: There are atherosclerotic changes of the abdominal aorta which is diffusely, mildly ectatic. The distal aorta shows a maximum diameter of 2.5 cm. No mural thrombus. 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 at 1620 Reported and signed by: Camden Cole M.D. CC: Cornel Gillespie DO Technologist: Samir Alva RUST Trnokb Date/Time: 10/01/2018 (1619) Adilene Orig Print D/T: S: 10/01/2018 (0005) Probe: PAGE 1 Signed Report [id number] 11:14:0010.8[facility] MOWTVDUYVDRT1727-69-11 11:14:0090[facility] HwhpjqfSWFHCOBIVBNP1833-30-82 11:14:00 0.67[facility] LsxllytIQDHALFFIIPF6317-43-19 11:14:20416Bpxpluxz [facility] DERAIEICZLNS1407-45-93 11:14:0026[facility] OsapkhbPMDMGJVUPTPB5135-94-95 11:14:00 7.4[facility] BppgcwvXFRRXFLKXJTA9276-13-30 11:14:0095[facility] HermannELECTROLYTES 2016-08-12 11:14:0019[facility] XtaqmncZZNNLVKIMEHN6079-64-03 11:14:57680Vgoxibhy WzilpbxBIIAMURZWMLM1775-46-76 11:14:003.8[facility] SebdfnpNYRRNFJULM6547-31-15 11:14:009.0[facility] ZipsilwYORTUOYLQN0517-02-58 11:14:26091Klgusncf Anthony FGAMNCDOQR0826-91-56 11:14:0033.7[facility] JcjcqbmNLCHTSOPMV9674-96-42 11:14:00 14.9[facility] OfphlruRIDWJWCXQA4983-33-53 11:14:00* Test Item Value Reference Range Interpretation Comments MCH (test code = MCH) 29.2 pg 27.0-31.0 [facility] MfygjcuJVCPTVRUFA8595-33-90 11:14:0086.4[facility] HermannHEMATOLOGY 2016-08-12 11:14:0032.6[facility] TzbwzfnHRMNYOQXNO5307-92-41 11:14:003.77[facility] QtlyrseMLVOOXNDUJ3586-18-16 11:14:0011.0[facility] XfhkrkkTNDCWLBMLE2836-02-61 11:14:004.1[facility] HermannCHEM UBCKW5412-17-37 06:18:001.3[facility]annURINE AND QBMOH2318-70-91 03:24:00None Seen (08/10/16 9:24 PM)[facility] [id number] 03:24:00Trace *ABN*(08/10/16 9:24 PM)[facility] IXAVT1078-20-36 03:24:00* Test Item Value Reference Range Interpretation Comments UA pH (test code = UA pH) 6.0 1 5.0-8.0 [facility] [id number] 03:24:00* Test Item Value Reference Range Interpretation Comments UA Spec Grav (test code = UA Spec Grav) 1.025 1 [facility] [id number] 03:24:00Clear (08/10/16 9:24 PM) [facility] [id number] 03:24:00Yellow *NA*(08/10/16 9:24 PM) [facility] PCXNW4055-76-18 03:24:00Negative (08/10/16 9:24 PM) [facility] NBEWF2941-91-74 03:24:00Negative (08/10/16 9:24 PM) [facility] [id number] 03:24:00Negative (08/10/16 9:24 PM) [facility] OBRHO6687-18-65 03:24:000.2[facility] TIPKK2986-20-48 03:24:00Negative *NA*(08/10/16 9:24 PM)[facility] ETJLF6924-07-00 03:24:00Trace *ABN*(08/10/16 9:24 PM)[facility] IUXQG0306-80-52 03:24:00Negative *NA*(08/10/16 9:24 PM)[facility]annVIRAL - CAOOLEUQ2140-62-49 01:41:00Negative (08/10/16 7:41 PM)[facility]annVIRAL - KXPESMXP5506-55-19 01:41:00Negative (08/10/16 7:41 PM)[facility]annCARDIAC PBLNVFW6229-52-92 00:18:00<0.02[facility]annCARDIAC FXYBNTG7548-26-51 00:18:001.3[facility]annCARDIAC LKEKQDK7841-72-33 00:18:0063[facility] CARDIAC TGAAKOA2951-96-19 00:18:002.1[facility] HermannCHEM OJBCJ4453-38-12 00:18:001.4[facility] HermannCHEM RREPA2298-13-21 00:18:0061[facility] HermannCHEM ZECWP3897-20-02 00:18:36040Kmkiyhvy HermannCHEM ZZUXT8171-39-78 00:18:72067 [facility]annCHEM FGKHI1885-62-62 00:18:004.0[facility]annCHEM PANEL 2016-08-11 00:18:54640Nusrhaep HermannCHEM MJOGA6169-85-65 00:18:001.12[facility] HermannCHEM QQZMK5630-07-28 00:18:0025[facility] HermannCHEM EKMEE5202-17-80 00:18:008.8[facility] HermannCHEM OGXLV2585-74-06 00:18:008.1[facility] HermannCHEM MTGQB1071-72-97 00:18:0027[facility] HermannCHEM JKSMP3233-92-31 00:18:003.8 [facility]annCHEM BXXWB1239-47-44 00:18:001.0[facility] HermannCHEM PANEL 2016-08-11 00:18:0034[facility] HermannCHEM EWDOL1039-37-36 00:18:0086[facility] HermannCHEM AIILX0636-27-78 00:18:0044[facility] HermannCHEM DTTAQ0738-75-35 00:18:0011.0[facility] HermannCHEM FUGPY6439-43-43 00:18:000.9[facility] HermannCHEM CSUCC1127-95-21 00:18:004.3[facility] HermannCHEM AKIGM9905-23-71 00:18:0022 [facility] DmebxuxHDADXJFLWJ5885-62-47 00:18:00* Test Item Value Reference Range Interpretation Comments PTT (test code = PTT) 34.8 s 22.9-35.8 [facility] MtqcujpAETEBNXSKD2156-66-13 00:18:00* Test Item Value Reference Range Interpretation Comments PT (test code = PT) 13.6 s 12.0-14.7 [facility] EktzabnUCFVYUOZOL7364-80-06 00:18:001.02[facility] HermannHEMATOLOGY 2016-08-11 00:18:00* Test Item Value Reference Range Interpretation Comments MCH (test code = MCH) 28.4 pg 27.0-31.0 [facility] NvnoozaJRMQWCYGWD5876-55-50 00:18:0032.6[facility] HermannHEMATOLOGY 2016-08-11 00:18:0015.4[facility] CyxoqgiWLDVSMZAFH0079-14-97 00:18:89464Fzjbnast YwernlxHGSPBXORMU6801-18-56 00:18:0087.0[facility] DqqoedqTKYYHMFIPY0837-46-54 00:18:0014.0[facility] McrllxwSLKXZSXCQO1781-95-06 00:18:0042.9[facility] ZIXVFLMSVX4422-65-05 00:18:008.8[facility] CjrbihhRZGCGVMPRV4286-19-17 00:18:00 4.93[facility] HqdzxkaSBXTGDWXYR5624-75-19 00:18:008.9[facility] HermannHEMATOLOGY 2016-08-11 00:18:000.3[facility] UkwoqblOJYMQXSZXH2079-23-05 00:18:007.8[facility] CsqnbyeTFJDHOZVDB3564-63-57 00:18:000.5[facility] EwdvuweBRUVKPIVRQ4942-70-95 00:18:000.5[facility] MuqdrpzSEEZIUPRCP0477-26-24 00:18:0087.7[facility] MAWZVFRTYX1424-71-20 00:18:005.9[facility] AwqpiuwMCSNMPGLWQ6294-69-43 00:18:006.0 [facility] QurdmbwEYYZEOIJMX9942-38-53 00:18:000.1[facility]
--- OUTSIDE RECORDS SUMMARY | 2020-04-08 16:26 | XMS REPORT | Continuity of Care Document ---
Author Author [facility] t Organization [facility] Address [address] [place] [address] Phone Unavailable Care Team Providers Care Command And Control Officer Name Role Phone EVIAUBREY PARKALD Attphys Unavailable Egwaikhide, Ohigbai Attphys CORNEL HERNÁNDEZ Admphys Unavailable Egwaikhide, Ohigbai Admphys Payers Payer Name Policy Type Policy Number Effective Date Expiration Date S ource Problems Condition Name Condition Details Condition Category Status Onset Date Resolution Date Last Treatment Date Treating Clinician Comments Source Pneumonia (disorder) Pneu monia (disorder) Active 08/10/2016 Problem 08/15/2016 [facility] Problem Active 2016-08-10 00:0 0:00 2016-08-15 03:31:42 Abdi rCuz POSSIBLE PNEUMNIA POSS IBLE PNEUMNIA Active 08/10/2016 [facility] Diagnosis Active 2016-08-10 00:00:00 2016-08-10 19:57:00 Abdi Cruz COMMUNITY ACQUIRED PNEUMONIA, HYPOTENSIO COMMUNITY ACQUIRED PNEUMONIA, HYPOTENSIO Active 08/10/2016 [facility] Diagnosis Active 2016-08-10 00:00:00 2016-08-12 15:55:00 Abdi Cruz Chronic obstructive lung disease (disorder) Chronic obstructive lung disease (disorder) Resolved Problem 08/15/2016 [facility] Problem Resolved 2016-08-15 03:31:42 Karyn Cruz Malignant tumor of prostate (disorder) Malignant tumor of prostate (disorder) Resolved Problem 08/15/2016 [facility] Problem Resolved 2016-08-15 03:31:42 Shaan Cruz Pulmonary emphysema (disorder) Pulmonary emphysema (disorder) Resolved Problem 08/15/2016 [facility] Problem Resolved 2016-08-15 03:31:42 Abdi Cruz PNEUMONIA, UNSPECIFIED ORGANISM PNEUMONIA, UNSPECIFIED ORGANISM Active [facility] Diagnosis Active 2016 15:55:00 [facility] HYPOTENSION, UNSPECIFIED HYPO TENSION, UNSPECIFIED Active [facility] Diagnosis Active 2016-08-12 15:55:00 [facility] SEPSIS, UNSPECIFIED ORGANISM S EPSIS, UNSPECIFIED ORGANISM Active [facility] Diagnosis Active 2016 15:55:00 [facility] Allergies, Adverse Reactions, Alerts Allergy Name Allergy Type Status Severity Reaction(s) Onset Date Inacti ve Date Treating Clinician Comments Source No Known Allergies DA Active U 2016-12-15 00:00:00 [facility] Social History Smoking Status Start Date Stop Date Source Social History 2016-08-11 00:29:46 2016-08-11 00:29:46 [facility] Medications Ordered Medication Name Filled Medication Name Start Date Stop Da te Current Medication? Ordering Clinician Indication Dosage Frequency Signature (SIG) Comments Components Source benzonatate 100 MG Oral Capsule [Tessalon Perles] 2016-08-12 17:00:00 Yes 100 mg = 1 cap, PO, Q8H, PRN cough, do not crush or chew, X 10 day, # 30 cap, 0 Refill(s), Pharmacy: [facility]/pharmacy #[id number] [facility] Guaifenesin 20 MG/ML Oral Solution [Robitussin] 2016-08-12 17:00 :00 Yes 200 mg = 10 mL, PO, Q6H, PRN Cough, # 120 mL, 0 Refill(s), Pharmacy: [facility]/pharmacy #[id number] [facility] 200 ACTUAT Albuterol 0.09 MG/ACTUAT Metered Dose Inhaler [Pr oAir HFA] 2016-08-12 17:00:00 Yes 2 puff, INHALER, Q6H, PRN wheezing, coughing, or shortness of breath, # 1 ea, 0 Refill(s), Pharmacy: [facility]/pharmacy #[id number] [facility] Levofloxacin 750 MG Oral Tablet [Levaquin] 2016-08-12 17:00:00 Yes 750 mg = 1 tab, PO, Q24H, X 7 day, # 7 tab, 0 Refill(s), Pharmacy: [facility]/pharmacy #[id number] Abdi Cruz Ceftriaxone 2016-08-12 02:00:00 No Notes: (Same As: Rocephin). Use with 100 mL NS and infuse over 30 min MEDICATION WASTE Product Size: 1000 mg Product Wasted: ___ mg Abdi Cruz Azithromycin 2016-08-12 00:00:00 No Notes: Take 1 hour before or 2 hours after meals. (Same As: Zithromax) [facility] Guaifenesin 2016-08-11 05:55:00 No Notes: ( Same as: Robitussin) [facility] Albuterol 0.833 MG/ML / Ipratropium Lulu 0.167 MG/ML Inha lant Solution 2016-08-11 05:55:00 No Notes: (Same as: D carlosb) [facility] sodium chloride 0.9% 1000 ml INJ 1,000 mL 2016-08-11 05:55:00 No 1,000 mL, Rate: 125 ml/hr, Infuse over: 8 hr, Route: IV, Dosing Weight 50 kg, Total Volume: 1,000, Start date: 08/10/16 23:55:00 AOC DIRECTOR COMBAT PLANS OFFICER, Duration: 30 day, Stop date: 09/09/16 23:54:00 AOC DIRECTOR COMBAT PLANS OFFICER [facility] simmons Albuterol 0.833 MG/ML / Ipratropium Brom bipin 0.167 MG/ML Inhalant Solution [DuoNeb] 2016-08-11 00:23:00 No Notes: (S edda as: Duoneb) [facility] Azithromycin 2016-08-10 23:47:00 No Notes: (Same As: Zithromax IV) [facility] Ceftriaxone 2016-08-10 23:47:00 No Notes: (Same As: Rocephin). Use with 100 mL NS and infuse over 30 min MEDICATION WASTE Product Size: 1000 mg Product Wasted: ___ mg [facility] Saline Flush 0.9% 2016-08-10 23:47:00 No Notes: Same as: BD Posiflush Sterile [facility] Calcium Chloride 0.0014 MEQ/ML / Potassi um Chloride 0.004 MEQ/ML / Sodium Chloride 0.103 MEQ/ML / Sodium Lactate 0.028 MEQ/ML Injectable Solution 2016-08-10 23:47:00 No 2,100 mL, 1909.09 ml/hr, Infuse Over: 1.1 hr, Route: IV, 2,100, Drug form: INJ, ONCE, Priority: STAT, kg, Start date: 08/10/16 17:47:00 AOC DIRECTOR COMBAT PLANS OFFICER, Duration: 1 doses or times, Stop date: 08/10/16 17:47:00 AOC DIRECTOR COMBAT PLANS OFFICER [facility] Vital Signs Vital Name Observation Time Observation Value Comments Source Temperature Oral (F) 2016-08-12 18:30:00 98.2 F [facility] Heart Rate 2016-08-12 18:30:00 [facility] Systolic (mm Hg) 2016-08-12 18:30:00 [facility] Diastolic (mm Hg) 2016-08-12 18:30:00 [facility] Respitory Rate 2016-08-12 18:30:00 [facility] Temperature Oral (F) 2016-08-12 14:31:00 98.6 F [facility] Heart Rate 2016-08-12 14:31:00 [facility] Systolic (mm Hg) 2016-08-12 14:31:00 [facility] Diastolic (mm Hg) 2016-08-12 14:31:00 [facility] Respitory Rate 2016-08-12 14:31:00 [facility] Systolic (mm Hg) 2016-08-12 10:16:00 [facility] Diastolic (mm Hg) 2016-08-12 10:16:00 [facility] Respitory Rate 2016-08-12 10:16:00 [facility] Temperature Oral (F) 2016-08-12 10:16:00 98.1 F [facility] Heart Rate 2016-08-12 10:16:00 [facility] Weight 2016-08-10 23:40:00 [facility] Height 2016-08-10 23:40:00 177.8 cm [facility] BMI Calculated 2016-08-10 23:40:00 [facility] Procedures This patient has no known procedures. Encounters Start Date/Time End Date/Time [facility] ID Source 2016-08-10 17:22:00 2016-08-12 14:52:00 [facility] [id number] Results Test Description Test Time Test Comments Results Result Comments Source CHEST SINGLE (PORTABLE) 2020-04-08 11:53:00 [facility] [address] [address] Patient Name: LOUIE JOHNSTON MR #: [id number] : 1935 Age/Sex: 85/M Req #: [id number] Adm Physician: CORNEL HERNÁNDEZ MD Ordered by: CHANTE WYNN MD Report #: [id number] Location: ICU Room/Bed: ICU [facility] Procedure: [id number] DX/CHEST SINGLE (PORTABLE) Exam Date: Exam Time: [...] CHANTE WYNN MD ABDOMEN-1VIEW (KUB) 2020-04-08 11:53:[address] [address] Patient Name: LOUIE JOHNSTON MR #: [id number] : 1935 Age/Sex: 85/M Req #: [id number] Adm Physician: CORNEL HERNÁNDEZ MD Ordered by: CHANTE WYNN MD Report #: [id number] Location: ICU Room/Bed: [address] [address] Procedure: [id number] DX/ABDOMEN-1VIEW (KUB) Exam Date: Exam Time: REPORT [...] WYNN MD CT BRAIN WO 2020-04-06 20:11:00 [address] [address] Patient Name: LOUIE JOHNSTON MR #: [id number] : 1935 Age/Sex: 85/M Req #: [id number] Adm Physician: Ordered by: SHADY MARTIN DO Report #: [id number] Location: ER Room/Bed: Procedure: [id number] CT/CT BRAIN WO Exam Date: 04/06/20 Exam [...] MARTIN DO CT ABDOMEN/PELVIS WO 2020-04-06 20:02:[address] [address] Patient Name: LOUIE JOHNSTON MR #: [id number] : 1935 Age/Sex: 85/M Req #: [id number] Adm Physician: Ordered by: SHADY MARTIN DO Report #: [id number] Location: Room/Bed: Procedure: [id number] CT/CT ABDOMEN/PELVIS WO Exam Date: 04/06/20 Exam [...] MARTIN DO CHEST SINGLE (PORTABLE) 2020-04-06 19:54:00 [address] [address] Patient Name: LOUIE JOHNSTON MR #: [id number] : 1935 Age/Sex: 85/M Req #: [id number] Adm Physician: Ordered by: SHADY MARTIN DO Report #: [id number] Location: ER Room/Bed: Procedure: [id number] DX/CHEST SINGLE (PORTABLE) Exam Date: 04/06/20 Exam [...] CONT 2020-01-18 10:51:00 N edda: LOUIE JOHNSTON [facility] : 1935 Age/S: 84 / M [address] [facility] Unit #: [id number] Loc: [place] [address] Phys: Cornel Gillespie DO Acct: [id number] Dis Date: Status: REG CLI PHONE #: [phone] Exam Date: 01/18/2020 1021 FAX #: [phone] Reason: CT RENAL CALCULI WO CONTRAST EXAMS: CPT CODE: [id number] CT ABD PELVIS W/O CONT 81386 HISTORY: Kidney stones. COMPARISON: CT scan from August 30, 2019. Location: [facility]. CT abdomen and pelvis: Stone protocol. Automated [...] 1 Signed Report (CONTINUED) Name: LOUIE JOHNSTON [facility] : 1935 Age/S: 84 / M [address] [facility] Unit #: [id number] Loc: [place] [address] Phys: Cornel Gillespie DO Acct: [id number] Dis Date: Status: REG CLI PHONE #: [phone] Exam Date: 01/18/2020 1021 FAX #: [phone] Reason: CT RENAL CALCULI WO CONTRAST EXAMS: CPT CODE: [id number] CT ABD PELVIS W/O CONT 35669 <Continued> IMPRESSION: No hydroureteronephrosis on either side. [...] 2 Signed Report (CONTINUED) Name: LOUIE JOHNSTON [facility] : 1935 Age/S: 84 / M [address] [facility] Unit #: [id number] Loc: [place] [address] Phys: Cornel Gillespie DO Acct: [id number] Dis Date: Status: REG CLI PHONE #: [phone] Exam Date: 01/18/2020 1021 FAX #: [phone] Reason: CT RENAL CALCULI WO CONTRAST EXAMS: CPT CODE: [id number] CT ABD PELVIS W/O CONT 85489 <Continued> CC: Cornel Gillespie DO Technologist:Jack Fernandez RT(R),(MR),(CT) CTDI: DLP: Trnscb Date/Time: 01/18/2020 (1051) [email or web address] Orig Print D/T: S: 01/18/2020 (8652) PAGE 3 Signed Report - CT CHEST W/O CONTRAST 2020-01-11 10:06:00 Na me: LOUIE JOHNSTON [facility] : 1935 Age/S: 84 / M [address] [facility] Unit #: [id number] Loc: [place] [address] Phys: Cristina Gilliland MD Acct: [id number] Dis Date: Status: REG CLI PHONE #: [phone] Exam Date: 01/11/2020932 FAX #: [phone] Reason: ABN FINDINGS OF LUNG FIELD EXAMS: CPT CODE: [id number] CT CHEST W/O CONTRAST 57115 HISTORY: Abnormal lung findings. COMPARISON: CT chest from August 30, 2017 and December 16, 2016. Location: [facility]. CT chest without contrast: Automated exposure control. [...] 1 Signed Report (CONTINUED) Name: LOUIE JOHNSTON [facility] : 1935 Age/S: 84 / M [address] Unit #: [id number] Loc: [place] [address] Phys: Cristina Gilliland MD Acct: [id number] Dis Date: Status: REG CLI PHONE #: [phone] Exam Date: 01/11/2020 09 FAX #: [phone] Reason: ABN FINDINGS OF LUNG FIELD EXAMS: CPT CODE: [id number] CT CHEST W/O CONTRAST 63819 <Continued> CC: Cristina Gilliland MD; Cornel Gillespie [...] due to change in reagent. COMPREHENSIVE METABOLIC [id number] 05:18:00* Test Item Value Reference Range Interpretation [...] code = ALKP) IUnit/L 45-117 CBC W/AUTO [id number] 04:55:00* Test Item Value Reference Range Interpretation [...] (test code = MDIFF) NO COMPREHENSIVE METABOLIC [id number] 10:24:00* Test Item Value Reference Range Interpretation [...] is a direct measurement.========= TSH REFLEX TO [id number] 10:24:00* Test Item Value Reference Range Interpretation Comments TSH REFLEX TO FT4 (test code = TSHREFLEX) 4.2 0.4-5.5 N COMPREHENSIVE METABOLIC [id number] 10:17:00* Test Item Value Reference Range Interpretation [...] = LDL) mg/dL 100-129 TSH REFLEX TO [id number] 10:17:00* Test Item Value Reference Range Interpretation Comments TSH REFLEX TO FT4 (test code = TSHREFLEX) 0.4-5.5 CBC W/AUTO [id number] 09:45:00* Test Item Value Reference Range Interpretation [...] code = NRBC#) 0.00 K/mm3 0.0-0.1 N [id number] 09:44:00* Test Item Value Reference Range Interpretation Comments GLYCOSYLATED HEMOGLOBIN (HA1C) (test code = GLYHGB) 6.1 % HbA1 SUGGESTED DIAGNOSIS: HbA1C (%) Diabetic >6.4Prediabetes 5.7 - 6.4Normal <5.7 ESTIMATED AVERAGE GLUCOSE (test code = EAG) 128 MG/DL CBC W/AUTO [id number] 09:31:00* Test Item Value Reference Range Interpretation [...] # (test code = BA#) K/mm3 0.0-0.2 [id number] 03:39:00* Test Item Value Reference Range Interpretation Comments TROPONIN-I (test code = TROPI) 0.018 ng/mL 0-0.045 N COMMENTS TO UNDERWATER TRAPPER: COLLECT 3 HOURS AFTER PREVIOUS [id number] 22:47:00* Test Item Value Reference Range Interpretation Comments TROPONIN-I (test code = TROPI) <0.015 ng/mL 0-0.045 N COMMENTS TO UNDERWATER TRAPPER: COLLECT 3 HOURS AFTER PREVIOUS SAMPLELACTIC [id number] 19:49:00* Test Item Value Reference Range Interpretation Comments LACTIC ACID (test code = LACT) 1.7 mmol/L 0.4-1.9 N LACTIC [id number] 18:17:00* Test Item Value Reference Range Interpretation Comments LACTIC ACID (test code = LACT) 2.4 mmol/L 0.4-1.9 HH Results called to [id number] by [facility] 08/30/19 1817Critical results verified and read back by Nurse? Y URINALYSIS [id number] 18:03:00* Test Item Value Reference Range Interpretation [...] Urine Source? Clean Catch- CT ABD PELVIS [id number] 16:36:00 Name: LOUIE JOHNSTON [facility] : 1935 Age/S: 84 / M [address] [facility] Unit #: [id number] Loc: [place], [place] [address] Phys: David Morin DO Acct: [id number] Di s Date: Status: REG ER PHONE #: [phone] Exam Date: 08/30/2019 1555 FAX #: [phone] Reason: abdominal pain, r/o diverticulitis EXAMS: CPT CODE: [id number] CT ABD PELVIS W/CONT 53456 HISTORY: Chest pain/PE ev aluation. COMPARISON: None [...] 1 Signed Report (CONTINUED) Name: LOUIE JOHNSTON [facility] : 1935 Age/S: 84 / M [address] [facility] Unit #: [id number] Loc: [place] [address] Phys: Poncho Morin Acct: [id number] Dis Date: Status: REG ER PHONE #: [phone] Exam Date: 08/30/2019 1559 FAX #: Reason: abdominal pain, r/o diverticulitis EXAMS: CPT CODE: [id number] CT ABD PELVIS W /CONT 66834 <Continued> Markedly atrophied pancreas enhances homogeneously. 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 The rest of it is patent. 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 at 1636 Reported and signed by: Will Blair M.D. CC: Cornel Gillespie DO; Macrina Morin DO Technologist:Ashleigh Brown RT(R); Jolie CTDI: DLP: Trnscb Date/Time: 08/30/2019 (1636) [email or web address] Orig Print D/T: S: 08/30/2019 (6733) PAGE 3 Signed Report - CTA CHEST FOR [id number] 16:36:00 Name: LOUIE JOHNSTON [facility] : 1935 Age/S: 84 / M [address] [facility] Unit #: [id number] Loc: [place] [address] Phys: Macrina Morin DO Acct: [id number] Dis Date: Status: REG ER PHONE #: [phone] Exam Date: 08/30/2019 1605 FAX #: [phone] Reason: chest pain, r/o pe EXAMS: CPT CODE: [id number] [place] [address] HISTORY: Chest pain/PE evaluation. COMPARISON: None available. [...] 1 Signed Report (CONTINUED) Name: LOUIE JOHNSTON [facility] : 1935 Age/S: 84 / M [address] [facility] Unit #: [id number] Loc: [place] [address] Phys: Poncho Morin DO Acct: [id number] Dis Date: Status: REG ER PHONE #: Exam Date: 08/30/2019 1609 FAX #: Reason: chest pain, r/o pe EXAMS: CPT CODE: [id number] [place] [address] <Continued> Markedly atrophied pancreas enhances homogeneously. Hyperplastic [...] Signed R eport (CONTINUED) Name: LOUIE JOHNSTON [facility] : 1935 Age/S: 84 / M [address] Unit #: [id number] Loc: [place] [address] Phys: Macrina Morin DO Acct: [id number] Dis Date: Status: REG ER PHONE #: [phone] Exam Date: 08/30/2019 1605 FAX #: [phone] Reason: chest pain, r/o pe EXAMS: C PT CODE: [id number] CTA CHEST FOR PE <Continued> Large thrombus [...] 3 Signed Report - CT HEAD/BRAIN W/O [id number] 16:08:00 Name: LOUIE JOHNSTON [facility] : 1935 Age/S: 84 / M [address] Unit #: [id number] Loc: [place] [address] Phys: Macrina Morin DO Acct: [id number] Dis Date: Status: REG ER PHONE #: [phone] Exam Date: 08/30/2019 160 FAX #: [phone] Reason: CODE SEPSIS EXAMS: CPT CODE: [id number] CT HEAD/BRAIN W/O CONT 69750 HISTORY: Sepsis. COMPARISON: September 30, 2017. CT [...] Signed Report ( CONTINUED) Name: LOUIE JOHNSTON [facility] : 1935 Age/S: 84 / M [address] U nit #: [id number] Loc: [place] [address] Phys: Macrina Morin DO Acct: [id number] Dis Date: Status: REG ER PHONE #: [phone] Exam Date: 08/30/2019 1605 FAX # : [phone] Reason: CODE SEPSIS EXAMS: CPT CODE: [id number] CT HEAD/BRAIN W/O CONT 85335 <Continued> CC: Cornel Gillespie DO; Macrina Morin DO Technologist:Ashleigh Brown RT(R); Jolie CTDI: DLP: Trnscb Date/Time: 08/30/2019 (1608) [email or web address] Orig Print D/T: S: 08/30/2019 (0731) PAGE 2 Signed Report - XR CHEST 1 [id number] 15:30:00 FAX: Cornel Klein [phone] [place]: St: REG FAX: Macrina Morin DO Name: LOUIE JOHNSTON [facility] : 1935 Age/S: 84/M [address] [facility] Unit #: [id number] Loc: [place] [address] Phys: Macrina Morin DO Acct: [id number] Dis Date: Status: REG ER PHONE #: [phone] Exam Date: 08/30/2019 1506 FAX #: [phone] Reason: CODE SEPSIS EXAMS: CPT CODE: [id number] XR CHEST 1 V 52074 HISTORY: Sepsis. COMPARISON: August 21, 2019. Location: [facility]. Single view chest: Small r ight effusion [...] (1533) PAGE 1 Signed Repo rt LACTIC [id number] 15:16:00* Test Item Value Reference Range Interpretation Comments LACTIC ACID (test code = LACT) 3.0 mmol/L 0.4-1.9 HH Results called to by [email or web address] 08/30/19 1516Critical results verified and read back by Nurse? Y BASIC METABOLIC [id number] 15:13:00* Test Item Value Reference Range Interpretation [...] CA) 9.5 mg/dL 8.5-10.1 N HEPATIC FUNCTION [id number] 15:13:00* Test Item Value Reference Range Interpretation [...] reference range due to change in reagent. [id number] 15:13:00* Test Item Value Reference Range Interpretation Comments TROPONIN-I (test code = TROPI) <0.015 ng/mL 0-0.045 N BASIC METABOLIC [id number] 15:05:00* Test Item Value Reference Range Interpretation [...] code = CA) mg/dL 8.5-10.1 HEPATIC FUNCTION [id number] 15:05:00* Test Item Value Reference Range Interpretation [...] TOTAL (test code = ALKP) IUnit/L 45-117 [id number] 15:05:00* Test Item Value Reference Range Interpretation Comments TROPONIN-I (test code = TROPI) ng/mL 0-0.045 PROTHROMBIN [id number] 14:56:00* Test Item Value Reference Range Interpretation [...] (2.5-3.5) IS PATIENT ON ANTICOAGULANTS? NTHROMBOPLASTIN TIME [id number] 14:56:00* Test Item Value Reference Range Interpretation Comments THROMBOPLASTIN TIME PARTIAL (test code = PTT) 34.6 seconds 25.0-36. 5 N IS PATIENT ON ANTICOAGULANTS? NARTERIAL BLOOD [id number] 14:53:00* Test Item Value Reference Range Interpretation Comments ARTERIAL BLOOD GAS PH (test code = PHA) 7.45 7.35-7.45 N ARTERIAL BLOOD GAS PCO2 (test code = PCO2A) 27.7 mm Hg 35-45 L ARTERIAL BLOOD GAS PO2 (test code = PO2A) 233.6 mmHg 80-100 H BICARBONATE TOTAL HCO3 (test code = HCO3) 18.6 mmol/L 23.0-27.0 L BASE EXCESS (test code = KIELA) -4.0 mmol/L -3.0-5.0 LL Results called to [...] 19.9 % vol 18.0-22.0 N CBC W/AUTO [id number] 14:50:00* Test Item Value Reference Range Interpretation [...] NRBC#) 0.00 K/mm3 0.0-0.1 N CBC W/AUTO [id number] 14:49:00* Test Item Value Reference Range Interpretation [...] # (test code = BA#) K/mm3 0.0-0.2 [id number] 14:32:00* Test Item Value Reference Range Interpretation Comments GLUBED (test code = GLUBED) 103 mg/dL 74-106 N Performed by certified driller operator at [facility] [id number] 14:10:00* Test Item Value Reference Range Interpretation Comments GLUBED (test code = GLUBED) 104 mg/dL 74-106 N Performed by certified driller operator at [facility] COMPREHENSIVE METABOLIC [id number] 05:05:00* Test Item Value Reference Range Interpretation [...] due to change in reagent. THYROID STIMULATING [id number] 05:05:00* Test Item Value Reference Range Interpretation Comments THYROID STIMULATING HORMONE (test code = TSH) 3.910 uIU/mL 0.36-3.7 4 H TSH REFERENCE RANGES: EUTHYROID: 0.35 - 4.3 mIU/mL HYPO : > 5.5 mIU/mL HYPER : < 0.35 mIU/mL [id number] 05:05:00* Test Item Value Reference Range Interpretation Comments TROPONIN-I (test code = TROPI) <0.015 ng/mL 0-0.045 N COMPREHENSIVE METABOLIC [id number] 04:46:00* Test Item Value Reference Range Interpretation [...] code = ALKP) IUnit/L 45-117 THYROID STIMULATING [id number] 04:46:00* Test Item Value Reference Range Interpretation Comments THYROID STIMULATING HORMONE (test code = TSH) uIU/mL 0.36-3.7 4 [id number] 04:46:00* Test Item Value Reference Range Interpretation Comments TROPONIN-I (test code = TROPI) ng/mL 0-0.045 CBC W/AUTO [id number] 04:29:00* Test Item Value Reference Range Interpretation [...] code = NRBC#) 0.00 K/mm3 0.0-0.1 N [id number] 22:06:00* Test Item Value Reference Range Interpretation Comments TROPONIN-I (test code = TROPI) 0.016 ng/mL 0-0.045 N COMMENTS TO UNDERWATER TRAPPER: COLLECT 3 HOURS AFTER PREVIOUS [id number] 16:58:00* Test Item Value Reference Range Interpretation Comments TROPONIN-I (test code = TROPI) <0.015 ng/mL 0-0.045 N COMMENTS TO UNDERWATER TRAPPER: COLLECT 3 HOURS AFTER PREVIOUS SAMPLEB-TYPE NATRIURETIC [id number] 11:07:00* Test Item Value Reference Range Interpretation Comments B-TYPE NATRIURETIC PEPTIDE (test code = BNP) 799.89 pgram/mL 0-100 H BASIC METABOLIC [id number] 10:38:00* Test Item Value Reference Range Interpretation [...] CA) 8.8 mg/dL 8.5-10.1 N HEPATIC FUNCTION [id number] 10:38:00* Test Item Value Reference Range Interpretation [...] reference range due to change in reagent. [id number] 10:38:00* Test Item Value Reference Range Interpretation Comments LIPASE (test code = LIP) 57 U/L 73.0-393.0 L [id number] 10:38:00* Test Item Value Reference Range Interpretation Comments MAGNESIUM (test code = MAG) 2.1 mg/dL 1.8-2.4 N [id number] 10:38:00* Test Item Value Reference Range Interpretation Comments TROPONIN-I (test code = TROPI) <0.015 ng/mL 0-0.045 N BASIC METABOLIC [id number] 10:31:00* Test Item Value Reference Range Interpretation [...] code = CA) mg/dL 8.5-10.1 HEPATIC FUNCTION [id number] 10:31:00* Test Item Value Reference Range Interpretation [...] TOTAL (test code = ALKP) IUnit/L 45-117 [id number] 10:31:00* Test Item Value Reference Range Interpretation Comments LIPASE (test code = LIP) U/L 73.0-393.0 [id number] 10:31:00* Test Item Value Reference Range Interpretation Comments MAGNESIUM (test code = MAG) mg/dL 1.8-2.4 [id number] 10:31:00* Test Item Value Reference Range Interpretation Comments TROPONIN-I (test code = TROPI) ng/mL 0-0.045 PROTHROMBIN [id number] 10:21:00* Test Item Value Reference Range Interpretation [...] (2.5-3.5) IS PATIENT ON ANTICOAGULANTS? NTHROMBOPLASTIN TIME [id number] 10:21:00* Test Item Value Reference Range Interpretation Comments THROMBOPLASTIN TIME PARTIAL (test code = PTT) 27.1 seconds 25.0-36. 5 N IS PATIENT ON ANTICOAGULANTS? N- XR CHEST 1 [id number] 10:15:00 FAX: Cornel Klein [phone] [place]: B St: REG FAX: Merry Pierson MD [phone] Name: LOUIE JOHNSTON [facility] : 1935 Age/S: 84/M [address] [facility] Unit #: [id number] Loc: [place] [address] Phys: Merry Pierson MD Acct: [id number] Dis Date: Status: REG ER PHONE #: [phone] Exam Date: 08/21/2019 1010 FAX #: [phone] Reason: CHEST PAIN EXAMS: CPT CODE: [id number] XR CHEST 1 V 79509 HISTORY: Chest pain. COMPARISON: August 02, 2019. [...] By: [email or web address] Orig Print D/T: S: 08/21/2019 (1010) PAGE 1 Signed Report CBC W/O [id number] 10:09:00* Test Item Value Reference Range Interpretation [...] code = MPV) fL 6.7-11.0 CBC W/O [id number] 10:09:00* Test Item Value Reference Range Interpretation [...] MPV) 11.2 fL 6.7-11.0 H COMPREHENSIVE METABOLIC [id number] 04:11:00* Test Item Value Reference Range Interpretation [...] due to change in reagent. CBC W/AUTO [id number] 04:01:00* Test Item Value Reference Range Interpretation [...] code = NRBC#) 0.00 K/mm3 0.0-0.1 N [id number] 05:28:00* Test Item Value Reference Range Interpretation Comments GLYCOSYLATED HEMOGLOBIN (HA1C) (test code = GLYHGB) 5.8 % HbA1 SUGGESTED DIAGNOSIS: HbA1C (%) Diabetic >6.4Prediabetes 5.7 - 6.4Normal <5.7 ESTIMATED AVERAGE GLUCOSE (test code = EAG) 120 MG/DL COMPREHENSIVE METABOLIC [id number] 04:30:00* Test Item Value Reference Range Interpretation [...] result is a direct measurement.========= THYROID STIMULATING [id number] 04:30:00* Test Item Value Reference Range Interpretation Comments THYROID STIMULATING HORMONE (test code = TSH) 9.020 uIU/mL 0.36-3.7 4 H TSH REFERENCE RANGES: EUTHYROID: 0.35 - 4.3 mIU/mL HYPO : > 5.5 mIU/mL HYPER : < 0.35 mIU/mL [id number] 04:13:00* Test Item Value Reference Range Interpretation Comments TROPONIN-I (test code = TROPI) <0.015 ng/mL 0-0.045 N COMMENTS TO UNDERWATER TRAPPER: COLLECT 3 HOURS AFTER PREVIOUS SAMPLECOMPREHENSIVE METABOLIC [id number] 04:10:00* Test Item Value Reference Range Interpretation [...] code = LDL) mg/dL 100-129 THYROID STIMULATING [id number] 04:10:00* Test Item Value Reference Range Interpretation Comments THYROID STIMULATING HORMONE (test code = TSH) uIU/mL 0.36-3.7 4 CBC W/AUTO [id number] 04:03:00* Test Item Value Reference Range Interpretation [...] code = NRBC#) 0.00 K/mm3 0.0-0.1 N [id number] 22:01:00* Test Item Value Reference Range Interpretation Comments TROPONIN-I (test code = TROPI) <0.015 ng/mL 0-0.045 N COMMENTS TO UNDERWATER TRAPPER: COLLECT 3 HOURS AFTER PREVIOUS SAMPLEAG PROSTATE [id number] 20:00:00* Test Item Value Reference Range Interpretation Comments AG PROSTATE SPECIFIC (test code = PSA) 0.90 ng/mL 0.0-4.0 N BASIC METABOLIC [id number] 14:46:00* Test Item Value Reference Range Interpretation [...] code = CA) 9.0 mg/dL 8.5-10.1 N [id number] 14:46:00* Test Item Value Reference Range Interpretation Comments MAGNESIUM (test code = MAG) 2.0 mg/dL 1.8-2.4 N [id number] 14:46:00* Test Item Value Reference Range Interpretation Comments TROPONIN-I (test code = TROPI) <0.015 ng/mL 0-0.045 N PROTHROMBIN [id number] 14:42:00* Test Item Value Reference Range Interpretation [...] (2.5-3.5) IS PATIENT ON ANTICOAGULANTS? NTHROMBOPLASTIN TIME [id number] 14:42:00* Test Item Value Reference Range Interpretation Comments THROMBOPLASTIN TIME PARTIAL (test code = PTT) 48.3 seconds 25.0-36. 5 H IS PATIENT ON ANTICOAGULANTS? NB-TYPE NATRIURETIC [id number] 14:39:00* Test Item Value Reference Range Interpretation Comments B-TYPE NATRIURETIC PEPTIDE (test code = BNP) 630.73 pgram/mL 0-100 H CBC W/AUTO [id number] 14:19:00* Test Item Value Reference Range Interpretation [...] (test code = MDIFF) NO BASIC METABOLIC [id number] 14:18:00* Test Item Value Reference Range Interpretation [...] CALCIUM (test code = CA) mg/dL 8.5-10.1 [id number] 14:18:00* Test Item Value Reference Range Interpretation Comments MAGNESIUM (test code = MAG) mg/dL 1.8-2.4 [id number] 14:18:00* Test Item Value Reference Range Interpretation Comments TROPONIN-I (test code = TROPI) ng/mL 0-0.045 - XR CHEST 1 [id number] 13:27:00 FAX: Effie Rosado [phone] [place]: St: REG FAX: Cornel Klein [phone] Name: LOUIE JOHNSTON [facility] : 1935 Age/S: 84/M [address] [facility] Unit #: [id number] Loc: [place] [address] Phys: Effie Gann MD Acct: [id number] Dis Date: Status: REG ER PHONE #: [phone] Exam Date: 08/02/2019 1242 FAX #: [phone] Reason: Shortness of Breath EXAMS: CPT CODE: [id number] XR CHEST 1 V 44716 REASON FOR EXAM: Shortness of Breath Exam [...] pre sent in the lung bases. Location: [facility] Electronical ly Signed by Neil Ewing MD on 08/02/2019 at 1327 Report ed and signed by: Neil Ewing MD CC: Effie Gann MD; Wolfgang Gillespie DO Technologist: RT JEREMÍAS(Esthela) Trnscrd Date/Time/By: 08/02/2019 (8855) : By: [email or web address] [facility] P rint D/T: S: 08/02/2019 (7493) PAGE 1 Signed Report - US ABDOMEN [id number] 16:20:00 Name: LOUIE JOHNSTON [facility] : 1935 Age/S: 83 / M [address] [facility] Unit #: [id number] Loc: [place] [address] Phys: Cornel Gillespie DO Acct: [id number] Dis Date: Status: REG CLI PHONE #: [phone] Exam Date: 10/01/2018 1541 FAX #: [phone] Reason: R/O AAA EXAMS: CPT CODE: [id number] US ABDOMEN LTD 34600 EXAM: Ultrasound abdomen, limited; INFORMATION: HISTORY of [...] CC: Cornel Gillespie DO Technologist: Samir Alva [facility] Trnlab Date/Time: 10/01/2018 (1619) Adilene Orig Print D/T: S: 10/01/2018 (0290) Probe: PAGE 1 Signed Report [id number] 11:14:0010.8[facility] WVRWEWNDWPPB1668-08-92 11:14:0090[facility] XktxjmpSPNONPZFXIUW1783-20-32 11:14:00 0.67[facility] AtsqlvwXWNFKLDXGORI8292-78-79 11:14:59741Tqidqwxy [place] PEYIPLTEKDYG9076-44-10 11:14:0026[facility] OwmfngnUPXTNOQCSZPQ4368-82-83 11:14:00 7.4[facility] MqvjmwiKFSXFZDDLLHX5606-17-38 11:14:0095[facility] HermannELECTROLYTES 2016-08-12 11:14:0019[facility] IlzqdvpJVYJZWWTWDNV4337-59-23 11:14:50704Cschkbco CvwrwfnCBWIAFMGKNVB5212-39-57 11:14:003.8[facility] PtozjpaXBMLVXZFUH1460-23-82 11:14:009.0[facility] AxktkdjHCJXBFPTAE9345-58-96 11:14:51920Hfixzkbo [facility] SGWOFQFZEF5215-93-22 11:14:0033.7[facility] DcqrupuGHDQJHLTQR7185-00-17 11:14:00 14.9[facility] PsgnfokDXNJAYFNFF9730-67-62 11:14:00* Test Item Value Reference Range Interpretation Comments MCH (test code = MCH) 29.2 pg 27.0-31.0 [facility] DizgaxxIPSLXXMLNX8188-35-50 11:14:0086.4[facility] HermannHEMATOLOGY 2016-08-12 11:14:0032.6[facility] EwkzrqzFZKURAOOMO8080-32-57 11:14:003.77[facility] AlikgqjMOBSCVJRWJ4691-24-66 11:14:0011.0[facility] PbdmdlvHQCBFDSYEN1998-03-34 11:14:004.1[facility] HermannCHEM XEDEH1031-02-31 06:18:001.3[facility]annURINE AND HRSNQ0273-58-09 03:24:00None Seen (08/10/16 9:24 PM)[facility] [id number] 03:24:00Trace *ABN*(08/10/16 9:24 PM)[facility] [id number] 03:24:00* Test Item Value Reference Range Interpretation Comments UA pH (test code = UA pH) 6.0 1 5.0-8.0 [facility] PYUXQ5947-05-19 03:24:00* Test Item Value Reference Range Interpretation Comments UA Spec Grav (test code = UA Spec Grav) 1.025 1 [facility] [id number] 03:24:00Clear (08/10/16 9:24 PM) [facility] [id number] 03:24:00Yellow *NA*(08/10/16 9:24 PM) [facility] NNVDI9501-65-82 03:24:00Negative (08/10/16 9:24 PM) [facility] VXNMO3380-02-54 03:24:00Negative (08/10/16 9:24 PM) [facility] PKEXG6276-72-36 03:24:00Negative (08/10/16 9:24 PM) [facility] GEEOM7656-48-18 03:24:000.2[facility] RAOSN0731-74-17 03:24:00Negative *NA*(08/10/16 9:24 PM)[facility] [id number] 03:24:00Trace *ABN*(08/10/16 9:24 PM)[facility] [id number] 03:24:00Negative *NA*(08/10/16 9:24 PM)[facility]annVIRAL - NJTJFOGI2361-01-51 01:41:00Negative (08/10/16 7:41 PM)[facility]annVIRAL - EUQWHPSV8499-39-83 01:41:00Negative (08/10/16 7:41 PM)[facility]annCARDIAC SIVBNOW3277-09-90 00:18:00<0.02[facility]annCARDIAC VBDTTET7937-16-72 00:18:001.3[facility]annCARDIAC LUTMEOW7366-54-58 00:18:0063[facility] CARDIAC SWRVQTW1930-00-98 00:18:002.1[facility] HermannCHEM IQWZU9624-16-18 00:18:001.4[facility] HermannCHEM OQQPY3038-01-53 00:18:0061[facility]annCHEM NQSIA7289-80-74 00:18:99290Bzgibktb HermannCHEM WBBCM8836-71-60 00:18:02989 [facility]annCHEM RMXTX1343-08-61 00:18:004.0[facility] HermannCHEM PANEL 2016-08-11 00:18:55009Clytmtqy HermannCHEM OUIDU5206-86-36 00:18:001.12[facility]annCHEM MLMNZ0828-24-79 00:18:0025[facility] HermannCHEM IALJR4319-38-62 00:18:008.8[facility] HermannCHEM HJREG0746-11-32 00:18:008.1[facility] HermannCHEM WCWSL3883-26-49 00:18:0027[facility] HermannCHEM DRBVY4892-25-20 00:18:003.8 [facility] HermannCHEM AZRGB7028-32-79 00:18:001.0[facility] HermannCHEM PANEL 2016-08-11 00:18:0034[facility] HermannCHEM CDJEV0154-74-85 00:18:0086[facility] HermannCHEM BTEPK8926-46-48 00:18:0044[facility] HermannCHEM HPOKF3624-14-89 00:18:0011.0[facility] HermannCHEM HKGFN7966-52-09 00:18:000.9[facility] HermannCHEM AVOOM4774-95-66 00:18:004.3[facility] HermannCHEM GVVIQ6546-42-47 00:18:0022 [facility] XxdnsptQYUMZCJKHR5616-81-15 00:18:00* Test Item Value Reference Range Interpretation Comments PTT (test code = PTT) 34.8 s 22.9-35.8 [facility] FaymmbuUPJWRWNHYF7577-34-13 00:18:00* Test Item Value Reference Range Interpretation Comments PT (test code = PT) 13.6 s 12.0-14.7 [facility] YgpruljOYEYABRQES7034-43-01 00:18:001.02[facility] HermannHEMATOLOGY 2016-08-11 00:18:00* Test Item Value Reference Range Interpretation Comments MCH (test code = MCH) 28.4 pg 27.0-31.0 [facility] UhcjkzaKBXOSGGGXU4595-21-00 00:18:0032.6[facility] HermannHEMATOLOGY 2016-08-11 00:18:0015.4[facility] DhroreyFVQXCGXCMG0102-39-31 00:18:20032Kdopommp OjcpplqDAXIQCSZYJ8852-37-25 00:18:0087.0[facility] PimtbztFDGIUDLMGW7501-03-10 00:18:0014.0[facility] IlehsktZIBQNXMWNE1490-52-65 00:18:0042.9[facility] YFBNDESSCA3536-02-69 00:18:008.8[facility] SxtitpnIMUWLINONU7229-85-29 00:18:00 4.93[facility] BwsgrjrHRLPKCMYYA4539-16-02 00:18:008.9[facility] HermannHEMATOLOGY 2016-08-11 00:18:000.3[facility] DvlfhqkWWGACUUWQV2032-75-88 00:18:007.8[facility] JpewruxVJAPDBAEJB1079-00-79 00:18:000.5[facility] BbipbrjVFWCOSBYYU8099-53-73 00:18:000.5[facility] ZaiflykEGJQOOXPBK3411-92-36 00:18:0087.7[facility] TRGKEEKCLH9060-33-91 00:18:005.9[facility] WfvydymZCYXMTEHXX3481-16-99 00:18:006.0 [facility] CsntthmTGREVGQBLV1713-66-87 00:18:000.1[facility]
[2020-04-08] MEDS: ENOXAPARIN SOD INJ 40 MG/0.4 ML SYR SC SCH (17:00)
--- NOTE | 2020-04-08 19:10 | NUR ---
Reinforced persistent high blood pressure with Dr Singh at this time, new orders received at this time.
[2020-04-08] MEDS ORDERED: METOPROLOL TARTRATE INJ 1 MG/ML VIAL IV PRN (19:15)
[2020-04-08] MEDS: AMLODIPINE BESYLATE 5 MG TAB PO SCH (19:29)
[2020-04-08] MEDS ORDERED: AZITHROMYCIN 500MG/NS 250 ML 250 ML ONE (20:10)
[2020-04-08] MEDS: AZITHROMYCIN 250MG/NS 100 ML 100 ML IV SCH (20:14)
[2020-04-08] MEDS ORDERED: DEXMEDETOMIDINE HCL 200 MCG in SODIUM CHLORIDE 0.9% 50ML 48 ML IV PRN (22:45)
[2020-04-08] MEDS ORDERED: HALOPERIDOL LACTATE 5 MG/ML VIAL IV PRN (22:45)
[2020-04-08] MEDS ORDERED: DEXMEDETOMIDINE 200MCG/NS 50ML 50 ML IV ONE (22:50)
[2020-04-09] VITALS (25 sets, daily range): BP systolic 67–143; BP diastolic 55–106
[2020-04-09] MEDS: ALBUTEROL/IPRATROPIUM 3 ML NEB NEB SCH ×6 (03:00→23:30)
--- NOTE | 2020-04-09 03:46 | Progress Note ---
DATE: 04/08/2020 CONSULTING PHYSICIANS: Dr. Robb Bonilla with Urology, Dr. Ruby Singh with Cardiology, and Dr. Sacha Salgado with Pulmonology/Critical Care Medicine. SUBJECTIVE: Per RN, the patient very confused earlier, got out of bed without assistance, was loud, given Haldol. Prior to that, Ativan had been given prior to his Dobhoff tube placement by Dr. Salgado today. Unfortunately, now the Dobhoff tube is reportedly clogged. His amiodarone drip was restarted today due to atrial fibrillation. OBJECTIVE: VITAL SIGNS: Temperature 97.5, pulse 124 this morning, current heart rate 70, 127/90, respirations 17, oxygen saturation 97% on room air. Intake and output, 1050 mL in and 1350 mL out. GENERAL: Supine, asleep. No acute distress. LUNGS: Rhonchi bilaterally. No supplemental oxygen. HEENT: EOMI. NECK: Supple. CARDIOVASCULAR: Irregularly irregular rhythm. No murmur. ABDOMEN: Bowel sounds positive. Soft, nontender. EXTREMITIES: No pitting edema. No clubbing, cyanosis, or signs of DVT. NEUROLOGICAL: GCS 12; eye 3, verbal 4, motor 5. LABORATORY DATA: WBC 5.89, hemoglobin 13.4, hematocrit 42.2, platelets 207. Sodium 141, potassium 4.1, chloride 102, CO2 of 25, anion gap 18.1, BUN 28, creatinine 0.97, estimated GFR greater than 60. Glucose 74, calcium 9.0, total bilirubin 0.9, AST 20, ALT 16, alkaline phosphatase 92, total protein 7, albumin 3.5. Abdomen x-ray and chest x-ray done today. Dobhoff tube terminating in the expected position of the distal stomach. Distal aspect appears kinked. Patchy bibasilar opacities compatible with infectious process or aspiration as noted on prior CT 04/07. Modified barium swallow failed. ASSESSMENT AND PLAN: 1. Obstructive right renal calculus (9 mm) with mild hydronephrosis. Urology following. Appreciate recommendations. Continue pain control. 2. Aspiration pneumonia, POA. Tan virus test was negative. Continue azithromycin and Zosyn. Continue DuoNebs. Monitor chest x-ray results. Pulmonology/Critical Care Medicine following. 3. Coronary artery disease and severe atherosclerotic disease, rule out ACS. Cardiac biomarkers negative. Cardiology following. 4. Chronic obstructive pulmonary disease without acute exacerbation. Continue DuoNebs for pneumonia. Room-air, no supplemental oxygen. 5. Infrarenal abdominal aortic aneurysm (3.3 cm). Cardiology following. 6. New onset atrial fibrillation with RVR, heart rate 142 on admission. Heart rate 124 earlier today, but now controlled on amiodarone drip. Per echocardiogram, preliminary results showed ejection fraction 35% to 40%. 7. Aksdd-gg-ixdvufh systolic congestive heart failure. Monitor strict intake and output. Monitor chest x-ray results. 8. Severe protein-calorie malnutrition with cachexia, BMI of 15.06. Jevity 1.2 with a goal rate of 55 mL/h has been recommended by the dietitian. 9. Dysphagia, may either need to replace Dobhoff tube or pullback in order to release kink. 10. Metabolic encephalopathy, altered mental status from baseline, currently on Precedex drip. Given Haldol today. Now asleep, monitor. 11. Prophylaxis, IV Pepcid and SCDs. Inpatient, ICU bed 195, billing code [id number], time spent 35 minutes. Dictated by Holden Hennessy NP Raul Fowler MD [facility]/MODL /[id number]
[2020-04-09] MEDS: METOPROLOL TARTRATE 50 MG TAB PO SCH ×2 (05:05)
[2020-04-09] MEDS ORDERED: DEXMEDETOMIDINE 200MCG/NS 50ML 50 ML IV ONE (06:07)
[2020-04-09] MEDS: PIPER-TAZ 3.375 GM 50 ML IV SCH ×3 (06:18→21:41)
[2020-04-09 06:31] LABS: BASOPHILS % 0.4 % (0.0-1.0); EOSINOPHILS % 0.2 % (0.0-6.0); HEMATOCRIT 36.8 % (38.2-49.6); HEMOGLOBIN 11.8 g/dL (14.0-18.0); LYMPHOCYTES # (AUTO) 0.7 (1.0-3.2); MEAN CORPUSCULAR HEMOGLOBIN 27.9 pg (28-32); MEAN CORPUSCULAR HGB CONC 32.1 g/dL (31-35); MONOCYTES # (AUTO) 0.5 (0.2-0.8); MONOCYTES % 9.2 % (4.4-11.3); NEUTROPHILS # (AUTO) 3.8 (2.1-6.9); NEUTROPHILS % 76.8 % (38.7-80.0); PLATELET COUNT 177 x10e3/uL (140-360); RED BLOOD COUNT 4.23 x10e6/uL (4.3-5.7); RED CELL DISTRIBUTION WIDTH 15.3 % (11.7-14.4)
[2020-04-09 07:05] LABS: ALANINE AMINOTRANSFERASE 12 IU/L (0-55); ALBUMIN 3.2 g/dL (3.5-5.0); ALBUMIN/GLOBULIN RATIO 1.1 (0.8-2.0); ALKALINE PHOSPHATASE 74 IU/L (40-150); ANION GAP 13.1 mmol/L (8-16); BLOOD UREA NITROGEN 22 mg/dL (7-26); BUN/CREATININE RATIO 23 (6-25); CALCIUM 8.7 mg/dL (8.4-10.2); CARBON DIOXIDE 29 mmol/L (22-29); CHLORIDE 101 mmol/L (98-107); CREATININE, SERUM 0.95 mg/dL (0.72-1.25); EST GLOMERULAR FILTRATION RATE > 60 ML/MIN (60-); GLUCOSE 98 mg/dL (74-118); MAGNESIUM 1.6 MG/DL (1.3-2.1); POTASSIUM 4.1 mmol/L (3.5-5.1); SODIUM 139 mmol/L (136-145)
--- NOTE | 2020-04-09 08:47 | Diagnostic Imaging Report ---
PROCEDURE: X-RAY MODIFIED BARIUM SWALLOW COMPARISON: None. INDICATION: Aspiration Radiation Details: Fluoroscopy time: 1.1 minutes Cumulative dose: 2.8 mGy DISCUSSION: Fluoroscopic examination was performed in conjunction with speech pathology during swallowing a variety of thin and thick liquid consistencies. Provided images demonstrate laryngeal penetration and aspiration. CONCLUSION: Modified barium swallow demonstrating laryngeal penetration and aspiration. Please refer to the speech pathology report for further details. Signed by: Lolis Estes MD on 04/09/2020 8:44 AM
[2020-04-09] MEDS: DOCUSATE SODIUM 100 MG CAP PO SCH (09:00)
[2020-04-09] MEDS: AMLODIPINE BESYLATE 5 MG TAB PO SCH (09:26)
[2020-04-09] MEDS: FAMOTIDINE 20 MG/2 ML VIAL IV SCH ×2 (09:26→16:11)
[2020-04-09] MEDS ORDERED: HALOPERIDOL LACTATE 5 MG/ML VIAL IV PRN (09:30)
[2020-04-09] MEDS ORDERED: HYDRALAZINE HCL 20 MG/ML VIAL IV PRN (09:30)
--- NOTE | 2020-04-09 09:32 | Diagnostic Imaging Report ---
EXAMINATION: ABDOMEN-1VIEW (KUB) INDICATION: Dobhoff retracted COMPARISON: CT abdomen/pelvis 04-06-2020 and KUB 04/07/2020. FINDINGS: Somewhat limited portable radiograph with exclusion of the right and lower abdomen from the field of view. Dobbhoff tube has been slightly retracted and terminates in the stomach, the distal kink is improved. Nonobstructive bowel gas pattern. No evidence of free intraperitoneal air. No free air under the diaphragm. Retained contrast in the colon and stomach. Surgical clip in the left upper quadrant. IMPRESSION: Dobbhoff tube has been slightly retracted and terminates in the stomach, the distal kink is improved. Signed by: Dr. Nely Jaimes MD on 04/09/2020 9:28 AM
[2020-04-09] MEDS ORDERED: RISPERIDONE 0.5 MG TAB PO SCH (10:00)
--- NOTE | 2020-04-09 10:17 | Progress Note ---
DATE: Pulmonary Critical Care Progress Note SUBJECTIVE: The patient had his feeding tube repositioned. He was started on enteral feedings. He is scheduled to receive ice chips today. He is still receiving antibiotics for aspiration pneumonia. He was seen by Urology yesterday. PHYSICAL EXAMINATION: VITAL SIGNS: The patient is afebrile. The blood pressure is 111/84, saturation is 100%, and the pulse is 68. Respiratory rate is 17. HEENT: Shows no facial swelling or erythema. LYMPHATIC: Shows no submandibular, cervical, or supraclavicular adenopathy. CARDIAC: Reveals regular rate and rhythm with normal S1 and S2. LUNGS: Auscultation of lungs reveals rhonchorous breath sounds bilaterally. There is no wheezing. ABDOMEN: Soft and nontender. There is no rebound or guarding. EXTREMITIES: Show no leg edema or calf tenderness. There is no cyanosis or clubbing. SKIN: Shows no rashes. LABORATORY DATA: White blood cell count is 5, hemoglobin is 11.8, and platelet count is 177. IMPRESSION: 1. Aspiration pneumonia with sepsis, present on admission. 2. Oropharyngeal dysphagia with recurrent aspiration. 3. Right-sided hydronephrosis and ureteral obstruction. 4. Nephrolithiasis. 5. Atrial fibrillation with rapid ventricular response. 6. Chronic systolic congestive heart failure. 7. Severe protein-calorie malnutrition. 8. Metabolic encephalopathy. PLAN: 1. The patient will complete IV antibiotics. 2. Continue enteral feedings and advance as tolerated. 3. Speech therapy. 4. Urology to evaluate the patient for possible ureteral stone retrieval. 5. Begin low-dose risperidone. 6. Continue amiodarone for atrial fibrillation. 7. Await further input from Cardiology. Greater than 35 minutes in direct critical care time. Sacha Salgado MD [facility]/MODL /[id number]
[2020-04-09 11:09] LABS: CLARITY,URINE SL CLOUDY (CLEAR); COLOR,URINE YELLOW (YELLOW); KETONES,URINE 1+ (NEGATIVE); LEUKOCYTE ESTERASE ,URINE TRACE (NEGATIVE); NITRITE,URINE NEGATIVE (NEGATIVE); PROTEIN,URINE DIPSTICK TRACE (NEGATIVE)
[2020-04-09 11:10] LABS: BILIRUBIN,URINE NEGATIVE (NEGATIVE); URINE UROBILINOGEN 0.2 mg/dL (0.2 - 1)
[2020-04-09 11:24] LABS: OVALOCYTES FEW
[2020-04-09 11:50] LABS: BACTERIA,URINE RARE /HPF; EPITHELIAL CELLS,URINE FEW /LPF; RBC,URINE >50 /HPF (0-5); WBC,URINE (MAN) 0-5 /HPF (0-5); YEAST,URINE MODERATE
[2020-04-09] MEDS ORDERED: ALBUMIN 25% 12.5GM 0.25 GM/ML BTL IV ONE (12:00)
[2020-04-09] MEDS: ENOXAPARIN SOD INJ 40 MG/0.4 ML SYR SC SCH (16:11)
[2020-04-09] MEDS: FLUCONAZOLE 200 MG/100 ML 100 ML IV SCH (16:12)
[2020-04-09] MEDS: DOCUSATE SODIUM LIQD 100 MG/10 ML UDC GT SCH (16:12)
[2020-04-09] MEDS ORDERED: ACETAMINOPHEN 325 MG/10 ML UDC GT PRN (16:15)
[2020-04-09] MEDS ORDERED: ACETAMINOPHEN 325 MG TAB GT PRN (16:15)
[2020-04-09] MEDS ORDERED: DOCUSATE SODIUM 100 MG CAP GT SCH (17:00)
--- NOTE | 2020-04-09 19:09 | NUR ---
Dr. David Salgado notified of low blood pressure, orders given for albumin. Per urology note procedure scheduled for Thursday. OR called and verified pt on schedule. Dr. Bonilla called and orders received for NPO at midnight and obtain consent for procedure (MD spoke with family prior about procedure). Telephone consent for picc line and urology procedure obtained from daughter (patient having intermittent confusion, unable to sign their own consent). Wound care evaluated patient, and speech therapy worked with patient. Physical therapy attempted to work with patient but patient was too lethargic. Per cardiology continue amiodarone drip.
--- NOTE | 2020-04-09 20:48 | Diagnostic Imaging Report ---
EXAMINATION: CHEST XRAY LINE PLACEMENT COMPARISON: Chest x-ray 04/08/2020 INDICATION: ^picc line insertion DISCUSSION: Frontal view of the chest obtained at 2012 hours. HEART AND MEDIASTINUM: The heart is mildly enlarged, stable. The thoracic aorta is tortuous LINES: Right PICC line terminates in the SVC without pneumothorax. Enteric tube extends past the diaphragm LUNGS: Diffuse hyperinflation suggestive COPD. Subcentimeter calcified granuloma in the right upper lobe is stable. No confluent infiltrates. Vascular markings are normal. PLEURA: No pleural effusion or pneumothorax. BONES AND SOFT TISSUES: Stable. IMPRESSION: Right PICC line terminates in the SVC without pneumothorax. Enteric tube as described above. No acute cardiopulmonary process. Signed by: Dr. Leixe Colindres MD on 04/09/2020 8:45 PM
--- NOTE | 2020-04-09 20:53 | NUR ---
PICC line in good placement per xray.
[2020-04-09] MEDS: METOPROLOL TARTRATE 25 MG TAB GT SCH (21:00)
[2020-04-09] MEDS ORDERED: METOPROLOL TARTRATE 25 MG TAB PO SCH (21:00)
[2020-04-09] MEDS: RISPERIDONE 0.5 MG TAB GT SCH (21:11)
[2020-04-09] MEDS: AZITHROMYCIN 250MG/NS 100 ML 100 ML IV SCH (21:41)
[2020-04-09] MEDS ORDERED: AZITHROMYCIN 500MG/NS 250 ML 250 ML ONE (21:45)
[2020-04-10] VITALS (8 sets, daily range): BP systolic 114–148; BP diastolic 86–110
[2020-04-10] MEDS: ALBUTEROL/IPRATROPIUM 3 ML NEB NEB SCH ×6 (03:15→22:45)
[2020-04-10 04:46] LABS: BASOPHILS % 0.4 % (0.0-1.0); EOSINOPHILS % 0.4 % (0.0-6.0); HEMATOCRIT 34.5 % (38.2-49.6); HEMOGLOBIN 11.1 g/dL (14.0-18.0); LYMPHOCYTES # (AUTO) 0.6 (1.0-3.2); LYMPHOCYTES % 11.5 % (18.0-39.1); MEAN CORPUSCULAR HEMOGLOBIN 27.6 pg (28-32); MEAN CORPUSCULAR HGB CONC 32.2 g/dL (31-35); MEAN CORPUSCULAR VOLUME 85.8 fL (81-99); MONOCYTES # (AUTO) 0.5 (0.2-0.8); NEUTROPHILS # (AUTO) 4.1 (2.1-6.9); NEUTROPHILS % 77.5 % (38.7-80.0); PLATELET COUNT 167 x10e3/uL (140-360); RED BLOOD COUNT 4.02 x10e6/uL (4.3-5.7); RED CELL DISTRIBUTION WIDTH 15.2 % (11.7-14.4)
[2020-04-10 05:06] LABS: ALANINE AMINOTRANSFERASE 10 IU/L (0-55); ALBUMIN 3.5 g/dL (3.5-5.0); ALBUMIN/GLOBULIN RATIO 1.3 (0.8-2.0); ALKALINE PHOSPHATASE 65 IU/L (40-150); ANION GAP 12.1 mmol/L (8-16); BLOOD UREA NITROGEN 17 mg/dL (7-26); BUN/CREATININE RATIO 22 (6-25); CALCIUM 8.6 mg/dL (8.4-10.2); CARBON DIOXIDE 29 mmol/L (22-29); CHLORIDE 100 mmol/L (98-107); CREATININE, SERUM 0.78 mg/dL (0.72-1.25); EST GLOMERULAR FILTRATION RATE > 60 ML/MIN (60-); GLUCOSE 92 mg/dL (74-118); POTASSIUM 3.1 mmol/L (3.5-5.1); SODIUM 138 mmol/L (136-145)
[2020-04-10] MEDS ORDERED: LEVOTHYROXINE SODIUM 25 MCG TABLET PO SCH (06:00)
[2020-04-10] MEDS: PIPER-TAZ 3.375 GM 50 ML IV SCH ×3 (06:00→22:00)
[2020-04-10] MEDS: LEVOTHYROXINE SODIUM 25 MCG TABLET NG SCH (06:00)
[2020-04-10] MEDS ORDERED: IOPAMIDOL 300MG/ML 50ML INFUS..BTL IV ONE (06:30)
[2020-04-10] MEDS: DOCUSATE SODIUM LIQD 100 MG/10 ML UDC GT SCH ×2 (08:52→17:00)
[2020-04-10] MEDS: BALSAM PERU/CASTOR OIL 60 GM OINT...G. TP SCH (08:53)
[2020-04-10] MEDS: METOPROLOL TARTRATE 25 MG TAB GT SCH ×2 (08:53→21:00)
[2020-04-10] MEDS: FAMOTIDINE 20 MG/2 ML VIAL IV SCH ×2 (08:53→17:35)
[2020-04-10] MEDS: RISPERIDONE 0.5 MG TAB GT SCH ×2 (08:53→21:00)
--- NOTE | 2020-04-10 13:19 | Progress Note ---
DATE: SUBJECTIVE: The patient's surgery was canceled this morning by the daughter. He continues to receive enteral feedings and is on 35 mL an hour. He is receiving electrical stimulation with physical therapy. PHYSICAL EXAMINATION: VITAL SIGNS: Blood pressure is 127/86, saturation is 100%, and the pulse is 70. The respiratory rate is 18. HEENT: Shows no facial swelling or erythema. LYMPHATIC: Shows no submandibular, cervical, or supraclavicular adenopathy. CARDIAC: Reveals regular rate and rhythm with normal S1 and S2. LUNGS: Auscultation of lungs reveals decreased breath sounds at the bases. There is no wheezing. ABDOMEN: Soft and nontender. There is no rebound or guarding. EXTREMITIES: Show 1 to 2+ leg edema. LABORATORY DATA: Potassium is 3.1. Other electrolytes are within normal limits. The white blood cell count is 5.3 and the hemoglobin is 11.1. The platelet count is 167. IMPRESSION: 1. Aspiration pneumonia with sepsis, present on admission. 2. Oropharyngeal dysphagia with recurrent aspiration. 3. Right-sided hydronephrosis with ureteral obstruction. 4. Atrial fibrillation with rapid ventricular response. 5. Nephrolithiasis. 6. Chronic systolic congestive heart failure. 7. Severe protein-calorie malnutrition. PLAN: 1. Continue enteral feedings. 2. Speech therapy. 3. Gastroenterology is considering a PEG tube placement. 4. LTAC evaluation. Sacha Salgado MD [facility]/MODL /[id number]
--- NOTE | 2020-04-10 15:39 | Diagnostic Imaging Report ---
EXAM: ABDOMEN-1VIEW (KUB) DATE: 04/10/2020 3:00 PM INDICATION: Dobbhoff tube placement COMPARISON: 04/09/2020 FINDINGS/IMPRESSION: Enteric tube identified coursing below the diaphragm and terminating within the left mid abdomen in the expected location of the distal stomach. The remainder the examination is unchanged from the recent prior examination. Enteric contrast material is noted within the colon. Bowel gas pattern is nonobstructive. Surgical clips noted within the left upper quadrant. No acute osseous abnormality is identified. Signed by: Dr. Praveen Orlando MD on 04/10/2020 3:36 PM
[2020-04-10] MEDS: FLUCONAZOLE 200 MG/100 ML 100 ML IV SCH (17:06)
[2020-04-10] MEDS: ENOXAPARIN SOD INJ 40 MG/0.4 ML SYR SC SCH (17:35)
--- NOTE | 2020-04-10 18:06 | NUR ---
PT DISCUSSED IN MDR. PT HAD GONE FOR SURGERY; LITHOTRIPSY, BUT DTR CALLED TO CANCEL. FAILED MBS; POSS PEG. DISCUSSED LTAC. STATES THE PT NEEDS THE SURGERY PRIOR TO TRANSFER.
--- NOTE | 2020-04-10 18:56 | Diagnostic Imaging Report ---
EXAM: ABDOMEN-1VIEW (KUB) DATE: 04/10/2020 6:18 PM INDICATION: Dobbhoff tube placement COMPARISON: 04/10/2020 FINDINGS/IMPRESSION: Dobbhoff tube identified coursing below the diaphragm and terminating within the left mid abdomen in the expected location of the distal stomach. Enteric contrast material is noted within the colon. Bowel gas pattern is nonobstructive. The remainder the examination is unchanged from the recent prior examination. No acute osseous abnormality is identified. Signed by: Galo Kapoor MD on 04/10/2020 6:53 PM
--- NOTE | 2020-04-10 20:00 | NUR ---
Patients daughter called and requested to be called each time the father gets agitated and for Haldol and Ativan NOT be given to him stating that she thinks the two medications are the reason he is getting agitated. conveyed the message to Holden who was rounding at the time
[2020-04-10] MEDS ORDERED: MAGNESIUM SULFATE 2GM/50ML 50 ML IV ONE (21:00)
[2020-04-10] MEDS ORDERED: POTASSIUM CITRATE ER 10 MEQ TAB NG ONE (21:00)
[2020-04-10] MEDS: AZITHROMYCIN 250MG/NS 100 ML 100 ML IV SCH (21:00)
--- NOTE | 2020-04-10 21:58 | Progress Note ---
DATE: 04/10/2020 CONSULTING PHYSICIANS: 1. Dr. Robb Bonilla with Urology. 2. Dr. Ruby Singh with Cardiology. 3. Dr. Sacha Salgado with Pulmonology. 4. Dr. Srinivasan Wade with Gastroenterology. SUBJECTIVE: The patient is lying supine in bed. Head of bed is elevated. He denies pain. He remains confused. He has a thick [place] Islander accent. This somewhat difficult to understand his speech. The patient's surgery was canceled this morning by the patient's daughter. Physical therapy and speech therapy are following. OBJECTIVE: VITAL SIGNS: Temperature 97.9, afebrile, pulse was 70 earlier, now 115, blood pressure 127/86, respirations 18, and oxygen saturation 100% on room air. GENERAL: Head of bed elevated. Supine. LUNGS: Diminished in the bases. Respiratory pattern even and unlabored. HEENT: EOMI. Right nares Dobbhoff tube without tube feeds at present. NECK: Supple. No lymphadenopathy, thyromegaly, or JVD. CARDIOVASCULAR: Irregularly irregular. Right upper extremity PICC line with amiodarone drip. ABDOMEN: Bowel sounds positive. Soft. No obvious distention. EXTREMITIES: No pitting edema. No clubbing, cyanosis, or signs of DVT. Soft wrist restraints are loose. NEUROLOGICAL: GCS 14. Eye 4, verbal 4, motor 6. LABORATORY DATA: WBCs 5.32, hemoglobin 11.1, hematocrit 34.5, platelets 167. Sodium 138, potassium 3.1, chloride 100, CO2 29, anion gap 12.1, BUN 17, creatinine 0.78, estimated GFR greater than 60, glucose 92, calcium 8.6, total bilirubin 1.2, AST 16, ALT 10, alkaline phosphatase 65, total protein 6.1, albumin 3.5. B-type natriuretic peptide 297.4. On 04/06, coronavirus PCR not detected. Preliminary urine culture shows no growth, holding. Blood cultures x2 show no growth after 72 hours. IMAGING: Abdominal x-ray done around 3 p.m. this afternoon shows enteric tube identified coursing below the diaphragm and terminating within the left mid abdomen in the expected location of the distal stomach. The patient had a second abdominal x-ray done around 5 p.m. Dobbhoff tube identified coursing below the diaphragm and terminating within the left mid abdomen in the expected location of the distal stomach. Enteric contrast material is noted within the colon. Bowel gas pattern is nonobstructive. Examination basically unchanged from the prior axillary. ASSESSMENT/PLAN: 1. Aspiration pneumonia with sepsis, present on admission. Coronavirus was ruled out. Pulmonology and Infectious Disease following. Continue azithromycin and Zosyn as well as DuoNebs. 2. Severe oropharyngeal dysphagia with recurrent aspiration. Dobbhoff tube has been placed per lease administrator. The patient to be fed tube feeding via the Dobbhoff tube n.p.o. 3. Obstructive right renal calculus (9 mm) with right-sided hydronephrosis. Urology following. Continue pain control. Urological surgery canceled today by patient's daughter. 4. New onset atrial fibrillation with rapid ventricular response, heart rate 115. Cardiology following. Continue metoprolol 25 mg q.12 hours and amiodarone drip. The patient is likely not a good candidate for anticoagulation. 5. Chronic systolic congestive heart failure with ejection fraction 35% to 40%. B-type natriuretic peptide 297.4. Cardiology following. Monitor chest x-ray results. Monitor strict intake and output. 6. Severe protein-calorie malnutrition with cachexia, BMI less than 15. Resume enteral feedings. Gastroenterology is considering a PEG tube placement. The patient failed modified barium swallow. 7. Acute hypokalemia, potassium level 3.1. Replete with 40 mEq potassium chloride via Dobbhoff tube in liquid form. 8. Candiduria, present on admission. Continue fluconazole. 9. Ambulatory dysfunction. PT evaluate and treat. 10. Prophylaxis. Lovenox and Pepcid. Inpatient, billing code [id number], time spent 45 minutes. Dictated by Holden Hennessy NP Raul Fowler MD [facility] /[id number]
[2020-04-10] MEDS ORDERED: POTASSIUM CHLORIDE 20MEQ/15ML UDC ONE (22:50)
--- NOTE | 2020-04-10 23:13 | NUR ---
Administered potassium chloride via Dobbhoff
[2020-04-10] MEDS ORDERED: POTASSIUM CHLORIDE 20 MEQ TAB CR PO ONE (23:45)
[2020-04-11] VITALS (12 sets, daily range): BP systolic 114–140; BP diastolic 80–112
[2020-04-11] MEDS: ALBUTEROL/IPRATROPIUM 3 ML NEB NEB SCH ×5 (02:25→19:35)
[2020-04-11 04:47] LABS: BASOPHILS % 0.3 % (0.0-1.0); HEMATOCRIT 38.3 % (38.2-49.6); HEMOGLOBIN 12.2 g/dL (14.0-18.0); LYMPHOCYTES # (AUTO) 0.5 (1.0-3.2); LYMPHOCYTES % 7.4 % (18.0-39.1); MEAN CORPUSCULAR HEMOGLOBIN 28.2 pg (28-32); MEAN CORPUSCULAR HGB CONC 31.9 g/dL (31-35); MEAN CORPUSCULAR VOLUME 88.7 fL (81-99); MONOCYTES # (AUTO) 0.6 (0.2-0.8); MONOCYTES % 9.6 % (4.4-11.3); NEUTROPHILS # (AUTO) 5.1 (2.1-6.9); NEUTROPHILS % 82.1 % (38.7-80.0); PLATELET COUNT 177 x10e3/uL (140-360); RED BLOOD COUNT 4.32 x10e6/uL (4.3-5.7)
[2020-04-11 05:10] LABS: ANION GAP 18.7 mmol/L (8-16); BLOOD UREA NITROGEN 16 mg/dL (7-26); BUN/CREATININE RATIO 19 (6-25); CARBON DIOXIDE 26 mmol/L (22-29); CHLORIDE 99 mmol/L (98-107); CREATININE, SERUM 0.86 mg/dL (0.72-1.25); EST GLOMERULAR FILTRATION RATE > 60 ML/MIN (60-); GLUCOSE 107 mg/dL (74-118); MAGNESIUM 2.4 MG/DL (1.3-2.1); POTASSIUM 3.7 mmol/L (3.5-5.1); SODIUM 140 mmol/L (136-145)
[2020-04-11] MEDS: LEVOTHYROXINE SODIUM 25 MCG TABLET NG SCH (06:00)
[2020-04-11] MEDS: PIPER-TAZ 3.375 GM 50 ML IV SCH ×3 (06:00→22:30)
--- NOTE | 2020-04-11 06:23 | NUR ---
Patient confused through the night, pulled out the picc line despite being restrained. Jarret informed, gave an order for a picc line reinsertion
--- NOTE | 2020-04-11 10:00 | NUR ---
Restraints removed daughter with patient.
[2020-04-11] MEDS: DOCUSATE SODIUM LIQD 100 MG/10 ML UDC GT SCH ×2 (10:37→17:47)
[2020-04-11] MEDS: FAMOTIDINE 20 MG/2 ML VIAL IV SCH ×2 (10:37→17:47)
[2020-04-11] MEDS: RISPERIDONE 0.5 MG TAB GT SCH (10:43)
[2020-04-11] MEDS: AMIODARONE HCL 200 MG TAB PO SCH (10:46)
[2020-04-11] MEDS: METOPROLOL TARTRATE 25 MG TAB GT SCH ×2 (10:47→21:30)
[2020-04-11] MEDS: BALSAM PERU/CASTOR OIL 60 GM OINT...G. TP SCH (12:50)
--- NOTE | 2020-04-11 14:37 | Diagnostic Imaging Report ---
EXAMINATION: CHEST XRAY LINE PLACEMENT INDICATION: Line placement COMPARISON: Chest radiograph 04/09/2020 FINDINGS: LINES/TUBES:Right PICC line terminates in the SVC. Feeding tube terminates in the stomach. EKG leads overlie the chest. LUNGS:The lungs are mildly hyperinflated. No focal consolidation or pulmonary edema. Right lung calcified granulomas unchanged. PLEURA:No pleural effusion or pneumothorax. MEDIASTINUM:The cardiomediastinal silhouette appears unchanged in size and shape. Atherosclerotic calcifications of the thoracic aorta. BONES/SOFT TISSUES:No acute osseous injury. ABDOMEN:No free air under the diaphragm. IMPRESSION: Right PICC line terminates in the SVC. Hyperinflated lungs. No focal pneumonia or pulmonary edema. Signed by: Lolis Estes MD on 04/11/2020 2:34 PM
--- NOTE | 2020-04-11 15:00 | NUR ---
Notified Holden Hennessy of PICC placement read Holden davenport to use picc
[2020-04-11] MEDS: FLUCONAZOLE 200 MG/100 ML 100 ML IV SCH (16:15)
--- NOTE | 2020-04-11 16:42 | NUR ---
Nutrition Intervention Note RD Recommendation(s) for Physician: The patient meets criteria for unspecified SEVERE protein-calorie malnutrition. -Recommend changing TF to Jevity 1.2 with goal rate of 55ml/hr to better meet needs (to provide 1584kcal, 73g protein, 1065ml water) -Water flushes and fluid management per MD -Please continue to monitor BMP with Mg and Phos closely, replace low lytes as needed -Rec adding Mehdi 1pkt BID (180kcal, 28g AA) via feeding tube to build lean body mass and heal wounds Plan of Care: RD following, monitoring for tolerance and adequacy, EN recommendation Nutrition reason for involvement: follow up RD Assessment 04/11: Follow up. Pt receiving TF at 30 ml/hr via NGT at time of visit, tolerating well. Pt conversing with his daughter at time of visit. No GI distress reported. TF rec's provided and placed in chart. Chart reviewed. Will continue to monitor. (04/07) 85yo M, who was admitted to ICU for right flank pain and dizziness. CXR resulted emphysema and bilateral opacities in LLL and multifocal PNA. Per SCHOOL BUS MONITOR notes, pt with dysphagia for 2+ years; Pt regularly coughs up phlegm/residue after meals. MBS revealed aspiration. RN has attempted to place NGT twice without any success. NPO for now. Visited pt in the room. Pt appears cachectic. Pt lives at home with ; pt reports eating well and cooks at home. (Not sure if pt is a reliable historian?) Pt thinks he might have lost 5-10lb within a month. Pt left his upper denture at home, missing/dental caries on bottom teeth. Pending NGT placement. Communicated POC with RN. Principal Problems/Diagnoses: 1.Obstructive right renal calculus (9 mm) with mild hydronephrosis 2.Aspiration pneumonia 3.Coronary artery disease and severe atherosclerotic disease 4.Acute on chronic systolic congestive heart failure 5.Protein-calorie malnutrition with cachexia, BMI of 15.06 PMH: COPD, CHF, perforated abdominal ulcer, hepatitis C virus, kidney stones, dementia. GI: abdomen flat, soft, non-tender, LBM 04/09 Skin: suspected DTI on sacrum Labs: 04/11: Na 140, k 3.7, BUN 16, Cr 0.86, Gluc 107, Phos 2, Mg 2.4 Meds: abx, risperdal, colace, pepcid, synthroid, haldol, zofran PRN Ht: 70in Wt: 105lb BMI: 15.1kg/m2 IBW: 166lb +/- 10% Malnutrition Evaluation (04/07) The patient meets criteria for unspecified SEVERE protein-calorie malnutrition. Energy intake: <50% of estimated energy requirements for >1 month Weight loss: >5% in 1 month (Acute) Fat loss: Severe hollow around orbital area Muscle loss: Severe temporal depression, clavicle protrusion Supporting Evidence: Fluid accumulation: no accumulation identified Functional Status: no changes Nutrition Prescription (Diet Order): Vital HP at 35 ml/hr, water flush of 500 ml q 4 hours. TF currently at 30 ml/hr (720 kcal and 63 gm protein) Estimated Nutritional Needs: Calories: 1440 1680kcal(30-35kcal/kg CBW) Protein: 58 96g (1.5-2g/kg CBW) Diet Adequacy: Not meeting calorie needs, Not meeting protein needs Tolerance: tolerating TF Diet Education Needs Assessment: Diet education not indicated; patient is NPO. Nutrition Care Level: high Nutrition Diagnosis: Swallowing difficulty related to aspiration PNA as evidenced by pt requiring EN via NGT. Goal: Patient will meet 75-100% of estimated needs by follow up Progress: Progressing Interventions: Commercial food, Composition, Rate, Route, Collaboration with other providers Monitoring/Evaluation: Total energy intake, Total protein intake, Formula/Solution, Weight change Signed: Annita Ordonez RD, LD, [facility]
[2020-04-11] MEDS: ENOXAPARIN SOD INJ 40 MG/0.4 ML SYR SC SCH (17:47)
--- NOTE | 2020-04-11 19:45 | NUR ---
Pt. confused, daughter at his bedside.
--- NOTE | 2020-04-11 21:17 | Progress Note ---
DATE: 04/11/2020 SUBJECTIVE: The patient's daughter has been allowed to visit throughout the day today despite the COVID pandemic as the patient has been confused lately. Per the patient's daughter, the patient has been fine today. He has been less confused today with her there. He had had an Ativan as an anti-anxiety agent in order to calm him and get his feeding tube properly placed, which apparently made him more confused, then given Haldol as the patient became aggressive. The daughter states that he has no history of dementia. She reports he is having visual hallucinations in the form of dogs walking and both her and the patient do not want Haldol to be given anymore. He was only on aspirin and metoprolol at home. Soft wrist restraints were being use whenever the daughter is not at the bedside as the patient has been confused and has pulled out his feeding tube more than once. Currently, the feeding tube is in place and functional and he is receiving enteral feeds. Reassurance given to the patient's daughter and Haldol and Risperdal have both been discontinued. His pulse had been elevated earlier in the shift, but his vital signs are much more stable now. OBJECTIVE: VITAL SIGNS: Temperature 98.0, pulse 105, blood pressure 122/80, respirations 22, oxygen saturation 96% and later on in the day, temperature 98.4, pulse 77, respirations 20, blood pressure 123/97, and oxygen saturation 96% on room air. GENERAL: Head of bed elevated supine. Cachectic. LUNGS: Diminished in the bases. Respiratory pattern even and unlabored HEENT: EOMI. Right nare Dobhoff tube with tube feeds infusing. NECK: Supple. No lymphadenopathy, thyromegaly, or JVD. CARDIOVASCULAR: Irregularly irregular. Right upper extremity PICC line without amiodarone drip. ABDOMEN: Bowel sounds positive. Soft. No obvious distention. EXTREMITIES: No pitting edema. No clubbing, cyanosis, or signs of DVT. Currently soft wrist restraints are not being used and not required. The patient is calm. NEUROLOGICAL: GCS 14-15, eye 4, verbal 4, and motor 6. The patient fidgeting with lines at times, but not actively pulling at any invasive lines such as PICC line and/or a Dobhoff tube. LABORATORY DATA: WBC 6.25, hemoglobin 12.2, hematocrit 38.3, platelets 177. Sodium 140, potassium 3.7, chloride 99, CO2 26, anion gap 18.7, BUN 16 and creatinine 0.86, estimated GFR greater than 60, glucose 107, calcium 9, phosphorus 2.0, magnesium 2.4. On 04/09, urine culture preliminary report showed yeast species. IMAGING: Admitting chest x-ray today showed right PICC line terminates in the superior vena cava, hyperinflated lungs, no focal pneumonia or pulmonary edema. ASSESSMENT/PLAN: 1. Aspiration pneumonia with sepsis, POA. Coronavirus was ruled out. Infectious Disease and Pulmonology are following. Continue azithromycin and Zosyn. DuoNeb every 4 hours. 2. Severe oropharyngeal dysphagia with recurrent aspiration. Dobhoff tube has been placed by real estate portfolio manager and the patient is being fed tube feeding via the tube. Maintain n.p.o. status for now. 3. Obstructive right renal calculus (9 mm) with right-sided hydronephrosis. Urology following. Continue with pain control. Urological Surgery canceled on 04/10, by the patient's daughter and also by urologist as the patient was confused with elevated heart rate and atrial fibrillation. 4. New onset atrial fibrillation with rapid ventricular response, heart rate 77, now Cardiology following. Continue metoprolol tartrate 25 mg q.12 hours and oral amiodarone 100 mg daily. 5. Chronic systolic congestive heart failure with ejection fraction 35% to 40%. Monitor chest x-ray results. Strict intake and output 1447 mL in and 1500 mL out. 6. Severe protein-calorie malnutrition with cachexia, BMI less than 15. Continue enteral feedings. Dietitian recommendations include Mehdi one packet b.i.d. via feeding tube in order to heal wounds and build lean body mass, thus this was added to the diet. Tube feeds changed to Jevity 1.2 with a goal rate of 55 mL an hour, rate increased from 35 to 45 mL an hour with a goal rate being 55 mL an hour. The patient failed modified barium swallow. 7. Acute hypophosphatemia. Phosphorus level 2.0. Reassess in the morning and replete p.r.n. 8. Acute hypermagnesemia. Magnesium level had been low at 1.6, was repleted. Magnesium level 2.4 this morning, but lab may have been collected to close to administration of magnesium sulfate. We will recheck magnesium level tomorrow. 9. Candiduria, POA. Continue fluconazole. 10. Ambulatory dysfunction. PT eval and treat. 11. Prophylaxis. Lovenox and Pepcid. 12. Inpatient, billing code [id number], time spent 45 minutes. Dictated by Holden Hennessy, WOOLEN TESTER MD [facility]/MODL /[id number]
[2020-04-11] MEDS: AZITHROMYCIN 250MG/NS 100 ML 100 ML IV SCH (21:30)
--- NOTE | 2020-04-11 21:30 | NUR ---
Pt. confused, daughter at his bedside.
--- NOTE | 2020-04-11 21:30 | NUR ---
Report given to Safia LI.
[2020-04-11] MEDS: ZOLPIDEM TARTRATE 5 MG TAB GT PRN (22:30)
[2020-04-12] VITALS (9 sets, daily range): BP systolic 123–145; BP diastolic 89–111
[2020-04-12 04:45] LABS: BASOPHILS % 0.5 % (0.0-1.0); EOSINOPHILS % 0.5 % (0.0-6.0); HEMATOCRIT 38.7 % (38.2-49.6); HEMOGLOBIN 12.4 g/dL (14.0-18.0); LYMPHOCYTES # (AUTO) 0.9 (1.0-3.2); MEAN CORPUSCULAR HEMOGLOBIN 28.3 pg (28-32); MEAN CORPUSCULAR VOLUME 88.4 fL (81-99); MONOCYTES # (AUTO) 0.7 (0.2-0.8); MONOCYTES % 10.9 % (4.4-11.3); NEUTROPHILS # (AUTO) 4.8 (2.1-6.9); NEUTROPHILS % 73.8 % (38.7-80.0); PLATELET COUNT 187 x10e3/uL (140-360); RED BLOOD COUNT 4.38 x10e6/uL (4.3-5.7); RED CELL DISTRIBUTION WIDTH 15.1 % (11.7-14.4)
[2020-04-12 05:02] LABS: ANION GAP 14.6 mmol/L (8-16); BLOOD UREA NITROGEN 15 mg/dL (7-26); BUN/CREATININE RATIO 19 (6-25); CARBON DIOXIDE 28 mmol/L (22-29); CHLORIDE 100 mmol/L (98-107); EST GLOMERULAR FILTRATION RATE > 60 ML/MIN (60-); GLUCOSE 103 mg/dL (74-118); PHOSPHORUS 2.6 MG/DL (2.3-4.7); POTASSIUM 3.6 mmol/L (3.5-5.1); SODIUM 139 mmol/L (136-145)
[2020-04-12] MEDS: LEVOTHYROXINE SODIUM 25 MCG TABLET NG SCH (06:05)
[2020-04-12] MEDS: PIPER-TAZ 3.375 GM 50 ML IV SCH ×3 (06:05→21:52)
[2020-04-12] MEDS: ALBUTEROL/IPRATROPIUM 3 ML NEB NEB SCH ×5 (07:00→23:00)
[2020-04-12] MEDS: DOCUSATE SODIUM LIQD 100 MG/10 ML UDC GT SCH ×2 (09:07→17:58)
[2020-04-12] MEDS: METOPROLOL TARTRATE 25 MG TAB GT SCH ×3 (09:08→21:52)
[2020-04-12] MEDS: FAMOTIDINE 20 MG/2 ML VIAL IV SCH ×2 (09:08→17:58)
[2020-04-12] MEDS: BALSAM PERU/CASTOR OIL 60 GM OINT...G. TP SCH (09:08)
[2020-04-12] MEDS: AMIODARONE HCL 200 MG TAB PO SCH (09:14)
--- NOTE | 2020-04-12 13:12 | Progress Note ---
DATE: SUBJECTIVE: The patient is not having fever. He is still requiring enteral feedings. PHYSICAL EXAMINATION: VITAL SIGNS: His heart rate is 110 to 120. His blood pressure is elevated at 145/106 and saturation is 95%. HEENT: Shows no facial swelling or erythema. LYMPHATIC: Shows no submandibular, cervical, or supraclavicular adenopathy. CARDIAC: Reveals regular rate and rhythm with normal S1 and S2. LUNGS: Auscultation of lungs reveals decreased breath sounds at the bases. There is no wheezing. ABDOMEN: Soft and nontender. There is no rebound or guarding. EXTREMITIES: Show no leg edema or calf tenderness. There is no cyanosis or clubbing. SKIN: Shows no rashes. NEUROLOGICAL: Shows no focal abnormalities. LABORATORY DATA: BUN to creatinine ratio is normal. Other electrolytes within normal limits. White blood cell count is 6.49, hemoglobin is 12.4, and platelet count is 187. IMPRESSION: 1. Aspiration pneumonia with severe sepsis, present on admission. 2. Oropharyngeal dysphagia with recurrent aspiration. 3. Severe protein-calorie malnutrition with cachexia, present on admission. 4. Atrial fibrillation with rapid ventricular response. 5. Chronic systolic congestive heart failure. 6. Right-sided hydronephrosis with ureteral obstruction. 7. Nephrolithiasis. PLAN: 1. Continue enteral feedings. 2. Continue speech therapy with electrical stimulation. 3. The patient should complete full 7-day course of antibiotics for aspiration pneumonia. Once he is afebrile and has no white blood cell count, probably he can be switched to oral antibiotics. 4. Antibiotics for aspiration pneumonia. 5. Continue current cardiac regimen. 6. The patient will be rescheduled for stent placement and urological procedure after he is more stable and is at low risk. 7. Physical therapy. 8. Discussed disposition with Dr. Fowler and Case Management. Sacha Salgado MD [facility] /[id number]
[2020-04-12] MEDS ORDERED: LEVALBUTEROL HCL SOLN NEBU 1.25 MG/3 ML NEB INH NR (15:15)
[2020-04-12] MEDS: FLUCONAZOLE 200 MG/100 ML 100 ML IV SCH (16:28)
[2020-04-12] MEDS: ENOXAPARIN SOD INJ 40 MG/0.4 ML SYR SC SCH (17:58)
[2020-04-12] MEDS: LEVALBUTEROL HCL SOLN NEBU 0.63 MG/3 ML NEB INH SCH ×2 (19:08→23:00)
[2020-04-12] MEDS: AZITHROMYCIN 250MG/NS 100 ML 100 ML IV SCH (21:00)
[2020-04-12] MEDS: ZOLPIDEM TARTRATE 5 MG TAB GT PRN (21:52)
[2020-04-13] VITALS (7 sets, daily range): BP systolic 118–146; BP diastolic 87–111
[2020-04-13] MEDS: ALBUTEROL/IPRATROPIUM 3 ML NEB NEB SCH ×6 (03:00→23:00)
[2020-04-13] MEDS: LEVALBUTEROL HCL SOLN NEBU 0.63 MG/3 ML NEB INH SCH ×8 (03:00→23:05)
[2020-04-13] MEDS: PIPER-TAZ 3.375 GM 50 ML IV SCH ×3 (06:07→21:03)
[2020-04-13] MEDS: LEVOTHYROXINE SODIUM 25 MCG TABLET NG SCH (06:07)
[2020-04-13] MEDS: METOPROLOL TARTRATE 25 MG TAB GT SCH ×3 (06:07→21:03)
[2020-04-13 06:18] LABS: BASOPHILS % 0.3 % (0.0-1.0); EOSINOPHILS % 0.3 % (0.0-6.0); HEMATOCRIT 36.7 % (38.2-49.6); HEMOGLOBIN 12.1 g/dL (14.0-18.0); LYMPHOCYTES # (AUTO) 0.8 (1.0-3.2); LYMPHOCYTES % 8.8 % (18.0-39.1); MONOCYTES # (AUTO) 0.9 (0.2-0.8); MONOCYTES % 9.9 % (4.4-11.3); NEUTROPHILS # (AUTO) 7.3 (2.1-6.9); NEUTROPHILS % 80.4 % (38.7-80.0); PLATELET COUNT 185 x10e3/uL (140-360); RED BLOOD COUNT 4.17 x10e6/uL (4.3-5.7); RED CELL DISTRIBUTION WIDTH 15.5 % (11.7-14.4)
[2020-04-13 06:40] LABS: ANION GAP 13.4 mmol/L (8-16); BLOOD UREA NITROGEN 25 mg/dL (7-26); BUN/CREATININE RATIO 31 (6-25); CALCIUM 9.1 mg/dL (8.4-10.2); CARBON DIOXIDE 30 mmol/L (22-29); CHLORIDE 99 mmol/L (98-107); EST GLOMERULAR FILTRATION RATE > 60 ML/MIN (60-); GLUCOSE 104 mg/dL (74-118); POTASSIUM 3.4 mmol/L (3.5-5.1); SODIUM 139 mmol/L (136-145)
[2020-04-13] MEDS: AMIODARONE HCL 200 MG TAB PO SCH (09:33)
[2020-04-13] MEDS: DOCUSATE SODIUM LIQD 100 MG/10 ML UDC GT SCH ×2 (09:33→16:18)
[2020-04-13] MEDS: FAMOTIDINE 20 MG/2 ML VIAL IV SCH ×2 (09:33→16:18)
[2020-04-13] MEDS: BALSAM PERU/CASTOR OIL 60 GM OINT...G. TP SCH (09:34)
--- NOTE | 2020-04-13 13:38 | NUR ---
ORDER FOR LTAC EVAL MET DAUGHTER IN PT'S ROOM; PT LESS CONFUSED TODAY SITTING UP IN CHAIR GAVE PT'S DTR MY CARD AND EXPLAINED LTAC EVAL TO HER GAVE HER CHOICE OF [facility] VS [facility] SHE STATES HER FATHER IS HAVING HIS KIDNEY STONE SURGERY FIRST AND THEN WILL LET ME KNOW PT IS MCR SO WILL MOVE QUICKLY GAVE PT MY CARD TO CALL FOR QUESTIONS/CONCERNS CM WILL F/U WITH DTR ON THURSDAY RE LTAC
[2020-04-13] MEDS: FLUCONAZOLE 200 MG/100 ML 100 ML IV SCH (15:46)
[2020-04-13] MEDS: ENOXAPARIN SOD INJ 40 MG/0.4 ML SYR SC SCH (16:18)
--- NOTE | 2020-04-13 17:13 | NUR ---
per renal MD, pt not experiencing flank pain any longer and has other underlying health factors so would prefer to wait for lithotripsy. pt and daughter at bedside agreed. updated primary, downgrade order recvd to continue to monitor with possible dc tomorrow
[2020-04-13] MEDS: AZITHROMYCIN 250MG/NS 100 ML 100 ML IV SCH (21:03)
[2020-04-14] VITALS (7 sets, daily range): BP systolic 112–145; BP diastolic 78–87
[2020-04-14] MEDS: LEVALBUTEROL HCL SOLN NEBU 0.63 MG/3 ML NEB INH SCH ×6 (03:00→19:15)
[2020-04-14] MEDS: ALBUTEROL/IPRATROPIUM 3 ML NEB NEB SCH ×6 (03:00→23:00)
[2020-04-14 05:37] LABS: BASOPHILS % 0.3 % (0.0-1.0); EOSINOPHILS # (AUTO) 0.1 (0.0-0.4); EOSINOPHILS % 1.1 % (0.0-6.0); HEMATOCRIT 34.3 % (38.2-49.6); HEMOGLOBIN 10.9 g/dL (14.0-18.0); LYMPHOCYTES # (AUTO) 0.6 (1.0-3.2); LYMPHOCYTES % 9.4 % (18.0-39.1); MEAN CORPUSCULAR HGB CONC 31.8 g/dL (31-35); MEAN CORPUSCULAR VOLUME 88.2 fL (81-99); MONOCYTES # (AUTO) 0.7 (0.2-0.8); MONOCYTES % 11.6 % (4.4-11.3); NEUTROPHILS # (AUTO) 4.7 (2.1-6.9); NEUTROPHILS % 77.3 % (38.7-80.0); PLATELET COUNT 172 x10e3/uL (140-360); RED BLOOD COUNT 3.89 x10e6/uL (4.3-5.7); RED CELL DISTRIBUTION WIDTH 15.7 % (11.7-14.4)
[2020-04-14] MEDS: LEVOTHYROXINE SODIUM 25 MCG TABLET NG SCH (05:49)
[2020-04-14] MEDS: PIPER-TAZ 3.375 GM 50 ML IV SCH ×3 (05:49→22:02)
[2020-04-14] MEDS: METOPROLOL TARTRATE 25 MG TAB GT SCH ×3 (05:49→22:07)
[2020-04-14 05:57] LABS: ANION GAP 10.6 mmol/L (8-16); BLOOD UREA NITROGEN 25 mg/dL (7-26); BUN/CREATININE RATIO 30 (6-25); CALCIUM 8.6 mg/dL (8.4-10.2); CARBON DIOXIDE 31 mmol/L (22-29); CHLORIDE 100 mmol/L (98-107); CREATININE, SERUM 0.84 mg/dL (0.72-1.25); EST GLOMERULAR FILTRATION RATE > 60 ML/MIN (60-); GLUCOSE 120 mg/dL (74-118); POTASSIUM 3.6 mmol/L (3.5-5.1); SODIUM 138 mmol/L (136-145)
[2020-04-14 08:15] LABS: EOSINOPHILS % (MANUAL) 3 % (0-7); LYMPHOCYTES % (MANUAL) 11 % (19-48); MONOCYTES % (MANUAL) 14 % (3.4-9.0); NEUTROPHILS % (MANUAL) 72 % (40-74); PLATELET ESTIMATE ADEQUATE; PLATELET MORPHOLOGY COMMENT NORMAL; RBC MORPHOLOGY COMMENT NORMAL
--- NOTE | 2020-04-14 08:38 | NUR ---
Received patient from [facility]. Right upper PICC intact, in placed. Right nare NG tube intact with Jevity 1.2 currently running at 55 ml/hr. Goal rate is 78 ml/hr per dietitian. No residual noted. Denies pain. Daughter at bedside.
[2020-04-14] MEDS: FAMOTIDINE 20 MG/2 ML VIAL IV SCH ×2 (09:00→16:56)
[2020-04-14] MEDS: DOCUSATE SODIUM LIQD 100 MG/10 ML UDC GT SCH ×2 (09:49→16:56)
[2020-04-14] MEDS: BALSAM PERU/CASTOR OIL 60 GM OINT...G. TP SCH (09:49)
[2020-04-14] MEDS: AMIODARONE HCL 200 MG TAB PO SCH (09:50)
[2020-04-14] MEDS ORDERED: SODIUM CHLORIDE 0.9% 250ML 250 ML ONE (14:44)
--- NOTE | 2020-04-14 15:00 | NUR ---
Feeding tube rate increased to 10 ml, now running 65 ml/hr.
--- NOTE | 2020-04-14 15:29 | NUR ---
Nutrition Intervention Note RD Recommendation(s) for Physician: The patient meets criteria for unspecified SEVERE protein-calorie malnutrition. -Recommend Jevity 1.2 with goal rate of 55ml/hr (to provide 1584kcal, 73g protein, 1065ml water) -Water flushes and fluid management per MD -Please continue to monitor BMP with Mg and Phos closely, replace low lytes as needed -Rec adding Mehdi 1pkt BID via feeding tube to build lean body mass and heal wounds Plan of Care: RD following, monitoring for tolerance and adequacy, EN recommendation Nutrition reason for involvement: follow up RD Assessment 04/14: Follow up. Chart reviewed. Pt is receiving TF @ 55 mL/hr through dobhoff as of this morning per documentation. Current recommendations remain appropriate. Will continue to monitor. 04/11: Follow up. Pt receiving TF at 30 ml/hr via NGT at time of visit, tolerating well. Pt conversing with his daughter at time of visit. No GI distress reported. TF rec's provided and placed in chart. Chart reviewed. Will continue to monitor. (04/07) 85yo M, who was admitted to ICU for right flank pain and dizziness. CXR resulted emphysema and bilateral opacities in LLL and multifocal PNA. Per STEAM BLOCKER notes, pt with dysphagia for 2+ years; Pt regularly coughs up phlegm/residue after meals. MBS revealed aspiration. RN has attempted to place NGT twice without any success. NPO for now. Visited pt in the room. Pt appears cachectic. Pt lives at home with ; pt reports eating well and cooks at home. (Not sure if pt is a reliable historian?) Pt thinks he might have lost 5-10lb within a month. Pt left his upper denture at home, missing/dental caries on bottom teeth. Pending NGT placement. Communicated POC with RN. Principal Problems/Diagnoses: 1.Obstructive right renal calculus (9 mm) with mild hydronephrosis 2.Aspiration pneumonia 3.Coronary artery disease and severe atherosclerotic disease 4.Acute on chronic systolic congestive heart failure 5.Protein-calorie malnutrition with cachexia, BMI of 15.06 PMH: COPD, CHF, perforated abdominal ulcer, hepatitis C virus, kidney stones, dementia. GI: abdomen flat, soft, non-tender, LBM 04/14 Skin: suspected DTI on sacrum Labs: 10/3: Na 138, K 3.6, Bun 25, Cr 0.84, Glu 120, Ca 8.6 04/11: Na 140, k 3.7, BUN 16, Cr 0.86, Gluc 107, Phos 2, Mg 2.4 Meds: colace, metoprolol, levothyroxine, antibiotics, pepcid, hydralazine, zofran Ht: 70in Wt: 86 lbs (04/13) 105lb (04/07) Suspect weight error BMI: 15.1kg/m2 using wt of 105 lbs IBW: 166lb +/- 10% Malnutrition Evaluation (04/07) The patient meets criteria for unspecified SEVERE protein-calorie malnutrition. Energy intake: <50% of estimated energy requirements for >1 month Weight loss: >5% in 1 month (Acute) Fat loss: Severe hollow around orbital area Muscle loss: Severe temporal depression, clavicle protrusion Supporting Evidence: Fluid accumulation: no accumulation identified Functional Status: no changes Nutrition Prescription (Diet Order): Jevity 1.2 @ goal of 75 mL/hr currently infusing at 55 mL/hr (provides 1584kcal, 73g protein, 1065ml water) Estimated Nutritional Needs: Calories: 1440 1680kcal (30-35kcal/kg CBW) Protein: 58 96g (1.5-2g/kg CBW) Diet Adequacy: meeting calorie needs, meeting protein needs with current tube feed rate Tolerance: tolerating TF Diet Education Needs Assessment: Diet education not indicated; patient is NPO. Nutrition Care Level: high Nutrition Diagnosis: Swallowing difficulty related to aspiration PNA as evidenced by pt requiring EN via NGT. Goal: Patient will meet 75-100% of estimated needs by follow up Progress: Progressing Interventions: Composition, Rate, Route, Commercial food, Monitoring/Evaluation: Total energy intake, Total protein intake, Formula/Solution, Weight change Signed: Macrina Bernard RD ,LD
--- NOTE | 2020-04-14 16:20 | NUR ---
Feeding tube rate at 65 ml/hr. Patient is tolerating it with no residual noted. HOB elevated. Daughter at bedside.
[2020-04-14] MEDS: FLUCONAZOLE 200 MG/100 ML 100 ML IV SCH (16:54)
[2020-04-14] MEDS: AZITHROMYCIN 250MG/NS 100 ML 100 ML IV SCH (22:57)
[2020-04-15] VITALS (8 sets, daily range): BP systolic 117–139; BP diastolic 70–94
[2020-04-15] MEDS: LEVALBUTEROL HCL SOLN NEBU 0.63 MG/3 ML NEB INH SCH ×7 (00:05→19:40)
[2020-04-15] MEDS: ALBUTEROL/IPRATROPIUM 3 ML NEB NEB SCH ×8 (03:00→23:01)
[2020-04-15] MEDS: METOPROLOL TARTRATE 25 MG TAB GT SCH ×3 (06:19→22:26)
[2020-04-15] MEDS: PIPER-TAZ 3.375 GM 50 ML IV SCH ×3 (06:19→22:25)
[2020-04-15] MEDS: LEVOTHYROXINE SODIUM 25 MCG TABLET NG SCH (06:19)
[2020-04-15 06:42] LABS: BASOPHILS % 0.3 % (0.0-1.0); EOSINOPHILS # (AUTO) 0.1 (0.0-0.4); EOSINOPHILS % 1.1 % (0.0-6.0); HEMATOCRIT 34.1 % (38.2-49.6); HEMOGLOBIN 11.3 g/dL (14.0-18.0); LYMPHOCYTES # (AUTO) 0.8 (1.0-3.2); LYMPHOCYTES % 12.7 % (18.0-39.1); MEAN CORPUSCULAR HEMOGLOBIN 30.5 pg (28-32); MEAN CORPUSCULAR HGB CONC 33.1 g/dL (31-35); MEAN CORPUSCULAR VOLUME 91.9 fL (81-99); MONOCYTES # (AUTO) 0.7 (0.2-0.8); MONOCYTES % 10.8 % (4.4-11.3); NEUTROPHILS # (AUTO) 4.8 (2.1-6.9); NEUTROPHILS % 74.6 % (38.7-80.0); PLATELET COUNT 142 x10e3/uL (140-360); RED BLOOD COUNT 3.71 x10e6/uL (4.3-5.7); RED CELL DISTRIBUTION WIDTH 17.4 % (11.7-14.4)
--- NOTE | 2020-04-15 07:00 | NUR ---
RECEIVED PATIENT RESTING IN BED NO S/S OF DISTRESS. BED LOW, WHEELS LOCKED, SIDE RAILS X2. CALL LIGHT IN REACH WILL CONTINUE TO MONITOR PATIENT.
[2020-04-15 07:09] LABS: ANION GAP 9.3 mmol/L (8-16); BLOOD UREA NITROGEN 26 mg/dL (7-26); BUN/CREATININE RATIO 34 (6-25); CALCIUM 8.7 mg/dL (8.4-10.2); CARBON DIOXIDE 30 mmol/L (22-29); CHLORIDE 102 mmol/L (98-107); CREATININE, SERUM 0.77 mg/dL (0.72-1.25); EST GLOMERULAR FILTRATION RATE > 60 ML/MIN (60-); GLUCOSE 124 mg/dL (74-118); POTASSIUM 4.3 mmol/L (3.5-5.1); SODIUM 137 mmol/L (136-145)
[2020-04-15] MEDS: DOCUSATE SODIUM LIQD 100 MG/10 ML UDC GT SCH ×2 (09:00→16:18)
[2020-04-15] MEDS: BALSAM PERU/CASTOR OIL 60 GM OINT...G. TP SCH (09:14)
[2020-04-15] MEDS: AMIODARONE HCL 200 MG TAB PO SCH (09:29)
[2020-04-15] MEDS: FAMOTIDINE 20 MG/2 ML VIAL IV SCH ×2 (09:29→17:15)
[2020-04-15] MEDS: FLUCONAZOLE 200 MG/100 ML 100 ML IV SCH (16:08)
[2020-04-15] MEDS: AZITHROMYCIN 250MG/NS 100 ML 100 ML IV SCH (20:26)
[2020-04-15] MEDS ORDERED: AZITHROMYCIN 250MG/NS 100 ML 100 ML IV SCH (21:00)
[2020-04-16] VITALS: BP 98/67
[2020-04-16] MEDS: ALBUTEROL/IPRATROPIUM 3 ML NEB NEB SCH ×4 (01:33→23:20)
[2020-04-16 04:00] VITALS: BP 111/68
[2020-04-16] MEDS: LEVALBUTEROL HCL SOLN NEBU 0.63 MG/3 ML NEB INH SCH ×7 (04:10→23:20)
[2020-04-16] MEDS: PIPER-TAZ 3.375 GM 50 ML IV SCH ×2 (05:57→16:37)
[2020-04-16] MEDS: LEVOTHYROXINE SODIUM 25 MCG TABLET NG SCH (05:57)
[2020-04-16] MEDS: METOPROLOL TARTRATE 25 MG TAB GT SCH ×3 (05:57→20:56)
[2020-04-16 06:28] LABS: BASOPHILS % 0.6 % (0.0-1.0); EOSINOPHILS # (AUTO) 0.1 (0.0-0.4); EOSINOPHILS % 1.2 % (0.0-6.0); HEMATOCRIT 34.2 % (38.2-49.6); HEMOGLOBIN 11.2 g/dL (14.0-18.0); LYMPHOCYTES # (AUTO) 0.8 (1.0-3.2); LYMPHOCYTES % 12.1 % (18.0-39.1); MEAN CORPUSCULAR HEMOGLOBIN 29.7 pg (28-32); MEAN CORPUSCULAR HGB CONC 32.7 g/dL (31-35); MEAN CORPUSCULAR VOLUME 90.7 fL (81-99); MONOCYTES # (AUTO) 0.7 (0.2-0.8); NEUTROPHILS # (AUTO) 4.9 (2.1-6.9); NEUTROPHILS % 74.6 % (38.7-80.0); PLATELET COUNT 168 x10e3/uL (140-360); RED BLOOD COUNT 3.77 x10e6/uL (4.3-5.7)
[2020-04-16 06:57] LABS: ALANINE AMINOTRANSFERASE 16 IU/L (0-55); ALBUMIN 3.1 g/dL (3.5-5.0); ALBUMIN/GLOBULIN RATIO 0.9 (0.8-2.0); ALKALINE PHOSPHATASE 75 IU/L (40-150); ANION GAP 9.6 mmol/L (8-16); BLOOD UREA NITROGEN 32 mg/dL (7-26); BUN/CREATININE RATIO 42 (6-25); CALCIUM 8.6 mg/dL (8.4-10.2); CARBON DIOXIDE 30 mmol/L (22-29); CHLORIDE 101 mmol/L (98-107); CREATININE, SERUM 0.76 mg/dL (0.72-1.25); EST GLOMERULAR FILTRATION RATE > 60 ML/MIN (60-); GLUCOSE 129 mg/dL (74-118); POTASSIUM 4.6 mmol/L (3.5-5.1); SODIUM 136 mmol/L (136-145)
[2020-04-16 08:00] VITALS: BP 104/68
[2020-04-16 08:55] VITALS: BP 104/68
[2020-04-16] MEDS: DOCUSATE SODIUM LIQD 100 MG/10 ML UDC GT SCH ×2 (09:00→16:38)
[2020-04-16] MEDS: MORPHINE SULFATE 2 MG/ML SYR 1ML IV PRN (09:29)
[2020-04-16] MEDS: AMIODARONE HCL 200 MG TAB PO SCH (09:31)
[2020-04-16] MEDS: FAMOTIDINE 20 MG/2 ML VIAL IV SCH ×2 (09:31→17:42)
[2020-04-16] MEDS: BALSAM PERU/CASTOR OIL 60 GM OINT...G. TP SCH (09:32)
[2020-04-16 12:00] VITALS: BP 102/72
--- NOTE | 2020-04-16 13:06 | Progress Note ---
DATE: SUBJECTIVE: The patient is now off oxygen. He is not having fevers. He is awaiting repeat swallowing evaluation today. PHYSICAL EXAMINATION: VITAL SIGNS: Blood pressure is 102/72, saturation is 100% and the patient is afebrile. HEENT: Shows no facial swelling or erythema. LYMPHATIC: Shows no submandibular, cervical, supraclavicular adenopathy. CARDIAC: Reveals a regular rate and rhythm with normal S1, S2. LUNGS: Auscultation of lungs reveals clear breath sounds bilaterally. There is no wheezing. ABDOMEN: Soft and nontender. There is no rebound or guarding. EXTREMITIES: Shows no leg edema or calf tenderness. There is no cyanosis or clubbing. SKIN: Shows no rashes. IMPRESSION: 1. Aspiration pneumonia with sepsis on admission that is improving. 2. Oropharyngeal dysphagia with recurrent aspiration. 3. Severe protein-calorie malnutrition with cachexia, present on admission. 4. Atrial fibrillation with rapid ventricular response, present on admission. 5. Chronic systolic congestive heart failure. 6. Right-sided hydronephrosis with ureterolithiasis. PLAN: 1. The patient to undergo repeat swallowing test today. 2. Continue enteral feedings until the patient is able to eat independently. 3. Complete antibiotics. 4. Physical therapy. 5. Await further input on when the patient can have the urological procedure. Sacha Salgado MD [facility] /[id number]
--- NOTE | 2020-04-16 16:11 | NUR ---
CM to pt's bedside. Spoke to pt and daughter to follow up on choice for LTAC. Daughter states that they are waiting for a repeat barium swallow study to determine if pt will need a peg. States she has not looked into LTAC facilities yet. ESME spoke with Diana with speech therapy, who states pt recently had barium swallow study about a week ago and that it is too soon for another one. Pt would like about 4 weeks of NMES prior to repeating study. ESME returned to pt's bedside and updated daughter. She got upset and states she wants to speak with . ESME updated PATRICIA Hatch.
[2020-04-16] MEDS: FLUCONAZOLE 200 MG/100 ML 100 ML IV SCH (17:47)
[2020-04-16] MEDS ORDERED: KETOROLAC TROMETHAMINE 30 MG/ML VIAL IV PRN (18:15)
--- NOTE | 2020-04-16 18:20 | NUR ---
patient resting up in bed, on tube feeding, not in any distress, call light in reach , daughter at bed side
[2020-04-16 20:10] VITALS: BP 108/73
[2020-04-17] VITALS (9 sets, daily range): BP systolic 102–124; BP diastolic 71–83
[2020-04-17] MEDS: LEVALBUTEROL HCL SOLN NEBU 0.63 MG/3 ML NEB INH SCH ×6 (03:10→22:45)
[2020-04-17] MEDS: ALBUTEROL/IPRATROPIUM 3 ML NEB NEB SCH ×6 (03:10→22:57)
--- NOTE | 2020-04-17 03:25 | Progress Note ---
DATE: CONSULTING PHYSICIANS: 1. Dr. Robb Bonilla with Urology. 2. Dr. Ruby Singh with Cardiology. 3. Dr. Sacha Salgado with Pulmonology. 4. Dr. Srinivasan Wade with Gastroenterology. SUBJECTIVE: The patient is lying supine in bed, asleep, easily arousable, oriented when awake, tolerating tube feedings well. OBJECTIVE: VITAL SIGNS: Temperature 98.1, pulse 70, blood pressure 104/68, respirations 20, oxygen saturation 99%. GENERAL: Supine. Head of bed elevated. The patient is cachectic. LUNGS: Clear to auscultation with diminished bases. HEENT: EOMI. Oropharynx clear. Dobhoff tube in place. NECK: Supple. No lymphadenopathy, thyromegaly, or JVD. CARDIOVASCULAR: Irregularly irregular. No murmur. ABDOMEN: Bowel sounds positive. Soft and nontender. Jevity 75 mL an hour via Dobbhoff tube. EXTREMITIES: Without pitting edema. No clubbing, cyanosis, or signs of DVT. NEUROLOGICAL: Nonfocal. LABORATORY DATA: WBC 6.54, hemoglobin 11.2, hematocrit 34.2, and platelets 168. Sodium 136, potassium 4.6, chloride 101, CO2 30, anion gap 9.6, BUN 32 and creatinine 0.76, estimated GFR greater than 60, glucose 129, calcium 8.6, total bilirubin 0.6, AST 21, ALT 16, alkaline phosphatase 75, total protein 6.4, albumin 3.1. IMAGING: No new imaging. ASSESSMENT AND PLAN: 1. Aspiration pneumonia with sepsis. Continue IV Zosyn and azithromycin. 2. Dysphagia with Dobhoff tube in situ. The patient may need PEG tube per speech therapy. The patient usually receive therapy for at least a week before swallow evaluation is re-attempted. 3. Obstructive renal calculi (9 mm in the proximal ureter) with mild hydronephrosis. Urology following per Urology note dated 04/13/2020. Dr. Bonilla discussed with the patient's daughter. We will hold off on any interventions for now and have the patient follow up with Dr. Bonilla after rehab. 4. New atrial fibrillation with rapid ventricular response, rate controlled with amiodarone and metoprolol. Echocardiogram done today shows normal sinus rhythm with a ventricular rate of 66 beats per minute. 5. New hypothyroidism, now on thyroxine 25 mcg daily. 6. Chronic systolic congestive heart failure with ejection fraction of 35%. Monitor fluid balance. 7. Severe protein-calorie malnutrition. Continue Jevity tube feeds. 8. Candiduria, urinary tract infection. Continue Diflucan. 9. Prophylaxis. Pepcid and Lovenox. Inpatient, billing code [id number], time spent greater than 35 minutes. Dictated by Holden Hennessy, PATRICIA Raul Fowler MD [facility]/MODL /[id number]
--- NOTE | 2020-04-17 05:11 | Progress Note ---
DATE: 04/12/2020 DATE OF SERVICE: April 12, 2020. SUBJECTIVE: The patient is confused. Daughter is at bedside. The patient is getting himself down in bed after being pulled up. His daughter reports that he is not swallowing his saliva, he is retaining his oral secretions; also "not receiving neb treatments." However, the respiratory therapist did not arrive at bedside, states the patient did receive neb treatments and daughter was asleep at that time. Per the respiratory therapist, the patient has had a strong cough. OBJECTIVE: VITAL SIGNS: Temperature 97.6, pulse 118, blood pressure 130/100, respirations 18, and oxygen saturation 98%. GENERAL: Supine, in no acute distress. LUNGS: Diminished bases. HEENT: EOMI. NECK: Supple. CARDIOVASCULAR: Irregularly irregular. Right upper extremity PICC line. ABDOMEN: Bowel sounds positive. Soft. Tube feeding at 45 mL an hour into right nerve dobhoff tube. EXTREMITIES: Not restrained. No pitting edema. No clubbing, cyanosis, or marked swelling. NEUROLOGIC: Confused, nonfocal. LABORATORY DATA: WBCs 6.49, hemoglobin 12.4, hematocrit 38.7, and platelets 187. Sodium 139, potassium 3.6, chloride 100, CO2 of 28, BUN 15, creatinine 0.8, estimated GFR greater than 60, glucose 103, calcium 9, phosphorus 2.6, and magnesium 2.0. IMAGING: No new imaging. ASSESSMENT AND PLAN: 1. Aspiration pneumonia with sepsis, POA, Infectious Disease and Pulmonology following. Continue azithromycin and Zosyn. Antibiotics. Continue neb treatments. 2. Obstructive right renal calculus (9 mm) with right-sided hydronephrosis. Urology is following. Continue with pain control. Urological surgery was canceled on 04/10 by the patient's daughter, and by the urologist as the patient was confused with elevated heart rate and atrial fibrillation. Today, the heart rate is 118. Cardiology is following. 3. New onset atrial fibrillation with rapid ventricular rate. Heart rate 118. Continue metoprolol tartrate 25 mg q.12 hours, amiodarone 100 mg daily orally. 4. Chronic systolic congestive heart failure with ejection fraction 35% to 40%. Strict intake and output. Monitor chest x-ray results. 5. Severe protein-calorie malnutrition, cachexia, BMI less than 15. Continue enteral feedings. Appreciate recommendations from dietitian. Mehdi one packet b.i.d. via feeding tube added for wound healing and build lean body mass. Continue Jevity 1.2 with a goal rate of 55 mL an hour. The patient failed his modified barium swallow. 6. Candiduria, POA. Continue fluconazole. 7. Ambulatory dysfunction. PT evaluation and treat. 8. Prophylaxis. Lovenox and Pepcid. 9. Inpatient, billing code [id number]. Time spent 35 minutes. Dictated by Holden Hennessy NP Raul Fowler MD [facility]/MODL /[id number]
[2020-04-17] MEDS: LEVOTHYROXINE SODIUM 25 MCG TABLET NG SCH (05:40)
[2020-04-17] MEDS: METOPROLOL TARTRATE 25 MG TAB GT SCH ×3 (05:40→21:23)
[2020-04-17] MEDS: DOCUSATE SODIUM LIQD 100 MG/10 ML UDC GT SCH ×2 (09:00→17:00)
[2020-04-17] MEDS: AMIODARONE HCL 200 MG TAB PO SCH (09:09)
[2020-04-17] MEDS: BALSAM PERU/CASTOR OIL 60 GM OINT...G. TP SCH (09:09)
[2020-04-17] MEDS: FAMOTIDINE 20 MG/2 ML VIAL IV SCH ×2 (09:09→16:54)
--- NOTE | 2020-04-17 11:40 | NUR ---
ST NOTE: Spoke with pt daughter on 04-16-20 during dysphagia therapy. Daughter stated that Dr. Fowler discussed with her that an MBS would be repeated prior to placing a peg tube. I stated that a repeat MBS would not show improvement at this time secondary to the length of time (2+ years) of severe dysphagia and that the pt is actively choking on saliva/expectorating/and has a wet vocal quality with constant throat clearing. I stated that the pt would benefit from dysphagia therapy (NMES) for at least 4 weeks prior to repeat MBS. The daughter repeated that an MBS was a doctor's order and I restated that the MBS was not clinically indicated at this time.
--- NOTE | 2020-04-17 14:18 | NUR ---
Talked to Dr Bonilla regarding the treatment plan, he stated since the patient is asymptomatic not proceeding with any procedure he talked with daughter. Patient can f/up in his office if any symptoms shows up
[2020-04-17] MEDS: FLUCONAZOLE 200 MG/100 ML 100 ML IV SCH (15:46)
[2020-04-17] MEDS: ENOXAPARIN 30 MG/0.3 ML SYR SC SCH (16:54)
[2020-04-18] VITALS (7 sets, daily range): BP systolic 94–128; BP diastolic 61–87
[2020-04-18] MEDS: LEVALBUTEROL HCL SOLN NEBU 0.63 MG/3 ML NEB INH SCH ×6 (02:35→23:10)
[2020-04-18] MEDS: ALBUTEROL/IPRATROPIUM 3 ML NEB NEB SCH ×6 (02:49→23:00)
[2020-04-18] MEDS: METOPROLOL TARTRATE 25 MG TAB GT SCH ×3 (06:19→22:00)
[2020-04-18] MEDS: LEVOTHYROXINE SODIUM 25 MCG TABLET NG SCH (06:19)
[2020-04-18 06:30] LABS: BASOPHILS % 0.5 % (0.0-1.0); EOSINOPHILS # (AUTO) 0.1 (0.0-0.4); EOSINOPHILS % 2.3 % (0.0-6.0); HEMATOCRIT 33.2 % (38.2-49.6); LYMPHOCYTES # (AUTO) 0.7 (1.0-3.2); LYMPHOCYTES % 12.1 % (18.0-39.1); MEAN CORPUSCULAR HEMOGLOBIN 30.6 pg (28-32); MEAN CORPUSCULAR HGB CONC 33.1 g/dL (31-35); MEAN CORPUSCULAR VOLUME 92.5 fL (81-99); MONOCYTES # (AUTO) 0.8 (0.2-0.8); MONOCYTES % 13.9 % (4.4-11.3); NEUTROPHILS # (AUTO) 4.3 (2.1-6.9); NEUTROPHILS % 70.7 % (38.7-80.0); PLATELET COUNT 160 x10e3/uL (140-360); RED BLOOD COUNT 3.59 x10e6/uL (4.3-5.7); RED CELL DISTRIBUTION WIDTH 16.8 % (11.7-14.4)
[2020-04-18 06:50] LABS: ANION GAP 13.3 mmol/L (8-16); BLOOD UREA NITROGEN 42 mg/dL (7-26); BUN/CREATININE RATIO 51 (6-25); CALCIUM 8.6 mg/dL (8.4-10.2); CARBON DIOXIDE 26 mmol/L (22-29); CHLORIDE 100 mmol/L (98-107); CREATININE, SERUM 0.83 mg/dL (0.72-1.25); EST GLOMERULAR FILTRATION RATE > 60 ML/MIN (60-); GLUCOSE 109 mg/dL (74-118); MAGNESIUM 2.1 MG/DL (1.3-2.1); POTASSIUM 5.3 mmol/L (3.5-5.1); SODIUM 134 mmol/L (136-145)
--- NOTE | 2020-04-18 07:30 | NUR ---
PATIENT IN BED WITH HEAD OF BED ELEVATED RECEIVING NEB TREATMENT, NO DISTRESS NOTED. NG TUBE FEEDING IN PROGRESS. BED IN LOWER POSITION, CALL LIGHT AT REACH, FAMILY AT BED SIDE.
--- NOTE | 2020-04-18 08:51 | NUR ---
PATIENT OFF UNIT TO NUCLEAR MEDICINE.
[2020-04-18] MEDS: DOCUSATE SODIUM LIQD 100 MG/10 ML UDC GT SCH ×2 (09:00→16:16)
[2020-04-18] MEDS: BALSAM PERU/CASTOR OIL 60 GM OINT...G. TP SCH (09:00)
[2020-04-18] MEDS: AMIODARONE HCL 200 MG TAB PO SCH (09:00)
[2020-04-18] MEDS: FAMOTIDINE 20 MG/2 ML VIAL IV SCH ×2 (09:00→16:49)
--- NOTE | 2020-04-18 10:09 | NUR ---
PATIENT BACK TO UNIT FROM NUCLEAR MEDICINE.
--- NOTE | 2020-04-18 10:15 | NUR ---
RECEIVED REPORT FROM GARY LI. PATIENT IN STABLE CONDITION, NO S/S OF DISTRESS NOTED. TELEMETRY APPLIED. NG TUBE NOTED TO THE RIGHT NARE SKIN INTACT. PICC TO THE RIGHT UPPER ARM, ASYMPTOMATIC AND PATENT, TRANSPARENT DRESSING C/D/I. DAUGHTER AT BEDSIDE. BED IN LOWEST POSITION AND LOCKED, SIDE RAILS X 2, NONSKID SOCKS APPLIED. CALL LIGHT WITHIN REACH.
--- NOTE | 2020-04-18 10:15 | NUR ---
REPORT GIVEN TO RECEIVING NURSE. URINAL EMPTIED. PATIENT IN BED WITH CALL LIGHT AT REACH.
[2020-04-18] MEDS: MORPHINE SULFATE 2 MG/ML SYR 1ML IV PRN (11:23)
--- NOTE | 2020-04-18 16:22 | NUR ---
Nutrition Intervention Note RD Recommendation(s) for Physician: The patient meets criteria for unspecified SEVERE protein-calorie malnutrition. -Recommend Jevity 1.2 with goal rate of 55ml/hr as appropriate (to provide 1584kcal, 73g protein, 1065ml water) -Water flushes and fluid management per MD - Mehdi 1pkt BID via feeding tube to build lean body mass and heal wounds Plan of Care: RD following, monitoring for tolerance and adequacy, EN recommendation Nutrition reason for involvement: follow up RD Assessment 04/18: Follow up. Chart reviewed. Pt was discussed during interdisciplinary rounds. Pt is tolerating TF @ 75 mL/hr through dobhoff. A repeat MBS was complete and speech therapy continued to recommend that pt remain NPO with alterative means of nutrition. However, pt does not want a PEG tube. Informed RN of our tube feeding recommendation. Will continue to monitor. 04/14: Follow up. Chart reviewed. Pt is receiving TF @ 55 mL/hr through dobhoff as of this morning per documentation. Current recommendations remain appropriate. Will continue to monitor. 04/11: Follow up. Pt receiving TF at 30 ml/hr via NGT at time of visit, tolerating well. Pt conversing with his daughter at time of visit. No GI distress reported. TF rec's provided and placed in chart. Chart reviewed. Will continue to monitor. (04/07) 85yo M, who was admitted to ICU for right flank pain and dizziness. CXR resulted emphysema and bilateral opacities in LLL and multifocal PNA. Per [employer] notes, pt with dysphagia for 2+ years; Pt regularly coughs up phlegm/residue after meals. MBS revealed aspiration. RN has attempted to place NGT twice without any success. NPO for now. Visited pt in the room. Pt appears cachectic. Pt lives at home with ; pt reports eating well and cooks at home. (Not sure if pt is a reliable historian?) Pt thinks he might have lost 5-10lb within a month. Pt left his upper denture at home, missing/dental caries on bottom teeth. Pending NGT placement. Communicated POC with RN. Principal Problems/Diagnoses: 1.Obstructive right renal calculus (9 mm) with mild hydronephrosis 2.Aspiration pneumonia 3.Coronary artery disease and severe atherosclerotic disease 4.Acute on chronic systolic congestive heart failure 5.Protein-calorie malnutrition with cachexia, BMI of 15.06 PMH: COPD, CHF, perforated abdominal ulcer, hepatitis C virus, kidney stones, dementia. GI: abdomen flat, soft, non-tender, LBM 04/16 Skin: suspected DTI on sacrum Labs: 04/18: Na 134, K 5.3, BUN 42, Cr 0.83, Glu 109, Ca 8.6 04/14: Na 138, K 3.6, Bun 25, Cr 0.84, Glu 120, Ca 8.6 04/11: Na 140, k 3.7, BUN 16, Cr 0.86, Gluc 107, Phos 2, Mg 2.4 Meds: morphine, zofran, pepcid, metoprolol, levothyroxine, colace Ht: 70in Wt: 86 lbs (04/13) 105lb (04/07) Suspect weight error BMI: 15.1kg/m2 using wt of 105 lbs IBW: 166lb +/- 10% Malnutrition Evaluation (04/07) The patient meets criteria for unspecified SEVERE protein-calorie malnutrition. Energy intake: <50% of estimated energy requirements for >1 month Weight loss: >5% in 1 month (Acute) Fat loss: Severe hollow around orbital area Muscle loss: Severe temporal depression, clavicle protrusion Supporting Evidence: Fluid accumulation: no accumulation identified Functional Status: no changes Nutrition Prescription (Diet Order): Jevity 1.2 @ goal of 75 mL/hr currently infusing at 75 mL/hr (provides 2160 kcal, 100 g protein), Mehdi BID Estimated Nutritional Needs: Calories: 1440 1680kcal (30-35kcal/kg CBW) Protein: 58 96g (1.5-2g/kg CBW) Diet Adequacy: TF is meeting 128% of calorie needs and 104% of protein needs Tolerance: tolerating TF Diet Education Needs Assessment: Diet education not indicated; patient is NPO. Nutrition Care Level: high Nutrition Diagnosis: Swallowing difficulty related to aspiration PNA as evidenced by pt requiring EN via NGT. Goal: Patient will meet 75-100% of estimated needs by follow up Progress: goal met Interventions: Composition, Rate, Route, Commercial food Monitoring/Evaluation: Total energy intake, Total protein intake, Formula/Solution, Weight change Signed: Macrina Bernard RD ,[place]
--- NOTE | 2020-04-18 16:34 | NUR ---
CM returned to pt's bedside. Spoke to pt and daughter at bedside. They are now agreeable to LTAC. Daughter would like for pt to go [facility]. Choice letter signed. Copy to daughter. Signed choice letter placed in front of chart. Referral sent to Kitty with [facility]. Confirmed that she received clinical. Informed her of request for private room if possible.
[2020-04-18] MEDS: FLUCONAZOLE 200 MG/100 ML 100 ML IV SCH (16:49)
[2020-04-18] MEDS: ENOXAPARIN 30 MG/0.3 ML SYR SC SCH (16:49)
[2020-04-18] MEDS ORDERED: FUROSEMIDE INJ 10 MG/ML 2 ML VIAL IV ONE (18:55)
--- NOTE | 2020-04-18 19:10 | NUR ---
COMPLETED BEDSIDE REPORT AND ROUNDING WITH ONCOMING NIGHT NURSE. PATIENT IN STABLE CONDITION, NO S/S OF DISTRESS NOTED. TELEMETRY APPLIED. NG TUBE NOTED TO THE RIGHT NARE SKIN INTACT,TUBE FEEDS INFUSING TO THE NG TUBE. PATIENT TOLERATING FEEDS WELL AT 45 DEGREES HED OF BED ELEVATED. PICC TO THE RIGHT UPPER ARM, ASYMPTOMATIC AND PATENT, TRANSPARENT DRESSING C/D/I. DAUGHTER AT BEDSIDE. BED IN LOWEST POSITION AND LOCKED, SIDE RAILS X 2, NONSKID SOCKS APPLIED. CALL LIGHT WITHIN REACH.
--- NOTE | 2020-04-18 19:49 | NUR ---
PATIENT IN BED WITH HEAD AOX2 , NO DISTRESS NOTED. NG TUBE FEEDING JEVITY 1.2 AT 75 ML/HR . BED IN LOWER POSITION, CALL LIGHT AT REACH, FAMILY AT BED SIDE.
[2020-04-19] VITALS (9 sets, daily range): BP systolic 95–108; BP diastolic 56–81
[2020-04-19] MEDS: ALBUTEROL/IPRATROPIUM 3 ML NEB NEB SCH ×5 (03:00→19:00)
[2020-04-19 05:09] LABS: BASOPHILS % 0.4 % (0.0-1.0); EOSINOPHILS # (AUTO) 0.1 (0.0-0.4); EOSINOPHILS % 1.4 % (0.0-6.0); HEMATOCRIT 35.1 % (38.2-49.6); HEMOGLOBIN 11.6 g/dL (14.0-18.0); LYMPHOCYTES # (AUTO) 0.9 (1.0-3.2); LYMPHOCYTES % 11.8 % (18.0-39.1); MEAN CORPUSCULAR HEMOGLOBIN 30.2 pg (28-32); MEAN CORPUSCULAR VOLUME 91.4 fL (81-99); MONOCYTES # (AUTO) 1.2 (0.2-0.8); MONOCYTES % 14.6 % (4.4-11.3); NEUTROPHILS # (AUTO) 5.6 (2.1-6.9); NEUTROPHILS % 71.2 % (38.7-80.0); PLATELET COUNT 178 x10e3/uL (140-360); RED BLOOD COUNT 3.84 x10e6/uL (4.3-5.7); RED CELL DISTRIBUTION WIDTH 16.4 % (11.7-14.4)
[2020-04-19 05:25] LABS: ANION GAP 14.5 mmol/L (8-16); BLOOD UREA NITROGEN 42 mg/dL (7-26); BUN/CREATININE RATIO 41 (6-25); CALCIUM 9.1 mg/dL (8.4-10.2); CARBON DIOXIDE 28 mmol/L (22-29); CHLORIDE 97 mmol/L (98-107); CREATININE, SERUM 1.02 mg/dL (0.72-1.25); EST GLOMERULAR FILTRATION RATE > 60 ML/MIN (60-); GLUCOSE 92 mg/dL (74-118); POTASSIUM 5.5 mmol/L (3.5-5.1); SODIUM 134 mmol/L (136-145)
--- NOTE | 2020-04-19 05:31 | NUR ---
PT IS NPO .PT IS GOING TO HAVE EGD AND PEG TUBE PLACEMENT ,FAMILY AT THE BEDSIDE ,CALL LIGHT WITH IN REACH ,CONTINUE TO MONITOR
[2020-04-19] MEDS: BALSAM PERU/CASTOR OIL 60 GM OINT...G. TP SCH ×2 (05:56→10:38)
[2020-04-19] MEDS: METOPROLOL TARTRATE 25 MG TAB GT SCH ×3 (06:00→22:00)
[2020-04-19] MEDS: LEVOTHYROXINE SODIUM 25 MCG TABLET NG SCH (06:00)
--- NOTE | 2020-04-19 07:00 | NUR ---
RECEIVED BEDSIDE REPORT WITH OFF GOING NIGHT NURSE. PATIENT IN STABLE CONDITION, NO S/S OF DISTRESS NOTED. TELEMETRY APPLIED. NG TUBE NOTED TO THE RIGHT NARE SKIN INTACT. PICC TO THE RIGHT UPPER ARM, ASYMPTOMATIC AND PATENT, TRANSPARENT DRESSING C/D/I. DAUGHTER AT BEDSIDE. BED IN LOWEST POSITION AND LOCKED, SIDE RAILS X 2, NONSKID SOCKS APPLIED. CALL LIGHT WITHIN REACH.
[2020-04-19] MEDS: LEVALBUTEROL HCL SOLN NEBU 0.63 MG/3 ML NEB INH SCH ×4 (07:20→19:25)
[2020-04-19] MEDS: DOCUSATE SODIUM LIQD 100 MG/10 ML UDC GT SCH ×2 (09:00→17:00)
--- NOTE | 2020-04-19 09:04 | Diagnostic Imaging Report ---
Fluoroscopy, less than 1 hour Indication: ^FLUORO GUIDED DOBHOFF PLACEMENT Comparison: none Findings: Fluoroscopic assistance was provided during Dobbhoff tube placement. Fluoroscopic images taken were interpreted by the referring clinician. Please see separate procedure note for full details. Dobbhoff tube tip is identified curling on itself in the left midabdomen on the final image suggesting location within the distal stomach. Total Fluoroscopy time: 2.0 minutes Radiation dose: 6.66 mGy Impression: Fluoroscopy assistance as described above. Signed by: Nathan Kinney MD on 04/19/2020 9:00 AM
--- NOTE | 2020-04-19 09:06 | Diagnostic Imaging Report ---
Modified barium swallow exam with speech pathology service CLINICAL HISTORY: Aspiration and penetration on evaluation dated 04/07/2020. Repeat examination to assess for improvement with therapy versus placement of gastrostomy tube. Fluoro Time: 0.03 min. Dose: 24.0 mGy IMPRESSION: Please see the speech pathology service report for details. Barium contrast of multiple consistencies is given to the patient to swallow. Fluoroscopic observation is performed during swallowing. Terell or silent aspiration noted with all consistencies is noted. Significant residue is noted with all consistencies. Signed by: Nathan Kinney MD on 04/19/2020 9:03 AM
[2020-04-19] MEDS: AMIODARONE HCL 200 MG TAB PO SCH (10:37)
[2020-04-19] MEDS: FAMOTIDINE 20 MG/2 ML VIAL IV SCH ×2 (10:37→17:00)
[2020-04-19] MEDS ORDERED: FUROSEMIDE INJ 10 MG/ML 4 ML VIAL IV NR (10:45)
--- NOTE | 2020-04-19 11:43 | NUR ---
ST NOTE: Pt is NPO for peg placement, dysphagia therapy to resume 04/20/20
--- NOTE | 2020-04-19 12:56 | Progress Note ---
DATE: SUBJECTIVE: The patient is currently awaiting PEG placement. He is not having any fevers. Repeat barium swallow yesterday showed persistent aspiration. PHYSICAL EXAMINATION: VITAL SIGNS: Blood pressure is 101/80, pulse is 71, saturations 96%. HEENT: Shows no facial swelling or erythema. LYMPHATIC: Shows no submandibular, cervical, or supraclavicular adenopathy. CARDIAC: Reveals regular rate and rhythm with normal S1, S2. LUNGS: Auscultation of lungs reveals decreased breath sounds at the bases. There is no wheezing. ABDOMEN: Soft and nontender. There is no rebound or guarding. EXTREMITIES: Shows no leg edema or calf tenderness. IMPRESSION: 1. Aspiration pneumonia with sepsis, present on admission, that is improving. 2. Oropharyngeal dysphagia and recurrent aspiration. 3. Severe protein-calorie malnutrition and cachexia, present on admission. 4. Atrial fibrillation. 5. Chronic systolic congestive heart failure. PLAN: 1. Continue current cardiac regimen. 2. Plan for PEG today. 3. Continue enteral feedings. 4. Continue speech therapy. 5. Complete antibiotics. Sacha Salgado MD [facility]/MODL /[id number]
[2020-04-19] MEDS ORDERED: SOD POLYSTYRENE SULFONATE SUSP 15 GM/60 ML BTL PO ONE (14:15)
[2020-04-19] MEDS: ENOXAPARIN 30 MG/0.3 ML SYR SC SCH (17:00)
--- NOTE | 2020-04-19 18:00 | NUR ---
EXPLAINED TO DR. LOVE THAT WOULD LIKE FOR HIM TO CHART WHAT THE PATIENT'S DAUGHTER AND HIM HAD SPOKE ABOUT DUE TO HER CONCERNS ABOUT THE PEG TUBE PLACEMENT.
--- NOTE | 2020-04-19 20:48 | Diagnostic Imaging Report ---
EXAMINATION: CHEST SINGLE (PORTABLE) INDICATION: Follow-up pneumonia COMPARISON: Multiple prior chest x-rays including most recent on 04/11/2020. FINDINGS: TUBES and LINES: Right PICC which terminates in the distal SVC, feeding tube which terminates in the stomach are unchanged. LUNGS: The lungs are hyperinflated as before. There is hazy opacification the right lung base. PLEURA: No pleural effusion or pneumothorax. HEART AND MEDIASTINUM: The cardiomediastinal silhouette is within normal limits with atherosclerotic calcification of the thoracic aortic arch. BONES AND SOFT TISSUES: No acute osseous lesion. Soft tissues are unremarkable. UPPER ABDOMEN: No free air under the diaphragm. Postoperative changes in the GE junction are stable. IMPRESSION: 1. Hazy opacification at the right lung base which may represent atelectasis and/or right lower lobe pneumonia. Follow-up chest radiograph in 6-8 weeks to ensure resolution. 2. Stable support lines and tubes as above. Signed by: Kimmie Lloyd MD on 04/19/2020 8:44 PM
--- NOTE | 2020-04-19 21:13 | NUR ---
RECEIVED PT IN BED SITTING ,FAMILY AT THE BEDSIDE STARTED JEVITY AT 75 ML/HR .CALL LIGHT WITH IN REACH ,CONTINUE TO MONITOR
[2020-04-20 04:20] VITALS: BP 101/69
[2020-04-20 05:05] LABS: BASOPHILS % 0.4 % (0.0-1.0); EOSINOPHILS # (AUTO) 0.1 (0.0-0.4); EOSINOPHILS % 0.6 % (0.0-6.0); HEMATOCRIT 36.1 % (38.2-49.6); HEMOGLOBIN 11.9 g/dL (14.0-18.0); LYMPHOCYTES # (AUTO) 0.8 (1.0-3.2); MEAN CORPUSCULAR HEMOGLOBIN 29.6 pg (28-32); MEAN CORPUSCULAR VOLUME 89.8 fL (81-99); MONOCYTES # (AUTO) 0.7 (0.2-0.8); MONOCYTES % 9.1 % (4.4-11.3); NEUTROPHILS # (AUTO) 6.5 (2.1-6.9); NEUTROPHILS % 79.3 % (38.7-80.0); PLATELET COUNT 214 x10e3/uL (140-360); RED BLOOD COUNT 4.02 x10e6/uL (4.3-5.7); RED CELL DISTRIBUTION WIDTH 15.9 % (11.7-14.4)
--- NOTE | 2020-04-20 05:24 | NUR ---
PT IS NPO FOR PEG TUBE PLACEMENT ,FAMILY AT THE BEDSIDE ,CALL LIGHT WTIH REACH ,CONTINUE TO MONITOR
[2020-04-20 05:27] LABS: ALBUMIN 3.4 g/dL (3.5-5.0); ALBUMIN/GLOBULIN RATIO 0.9 (0.8-2.0); ANION GAP 16.4 mmol/L (8-16); CALCIUM 9.4 mg/dL (8.4-10.2); CREATININE, SERUM 1.65 mg/dL (0.72-1.25); MAGNESIUM 2.6 MG/DL (1.3-2.1); POTASSIUM 5.4 mmol/L (3.5-5.1)
[2020-04-20] MEDS: METOPROLOL TARTRATE 25 MG TAB GT SCH (06:00)
[2020-04-20] MEDS: LEVOTHYROXINE SODIUM 25 MCG TABLET NG SCH (06:00)
--- NOTE | 2020-04-20 07:06 | NUR ---
BEDSIDE REPORT GIVEN TO THE ONCOMING NURSE.
[2020-04-20] MEDS: LEVALBUTEROL HCL SOLN NEBU 0.63 MG/3 ML NEB INH SCH (07:25)
[2020-04-20 08:19] VITALS: BP 111/74
[2020-04-20] MEDS ORDERED: SOD POLYSTYRENE SULFONATE SUSP 15 GM/60 ML BTL PO ONE (08:25)
--- NOTE | 2020-04-20 08:32 | NUR ---
NG TUBE REMOVE PER DOCTORS ORDERS, PATIENT TOLERATED THE REMOVAL WELL. NO PAIN OR DISCOMFORT VOICED.
[2020-04-20] MEDS: AMIODARONE HCL 200 MG TAB PO SCH (09:00)
[2020-04-20] MEDS: DOCUSATE SODIUM LIQD 100 MG/10 ML UDC GT SCH (09:00)
[2020-04-20 09:11] VITALS: BP 111/74
--- NOTE | 2020-04-20 09:42 | NUR ---
Per Ktity with [facility], pt was administratively denied for LTAC due to minimal criteria. Pt is now refusing peg tube placement and is requesting to go home. Received order for home health. Spoke to pt and daughter Derrell at bedside. Pt requesting to go to outpatient therapy at [facility]. Received order for outpatient therapy. Order form faxed to [phone]. Received confirmation. Printed outpatient services information and gave to pt's daughter. CM asked her to call them if she does not hear from them. IMM letter discussed. She verbalized understanding. Copy given to daughter. Signed copy placed in chart.
[2020-04-20 09:52] LABS: INR 1.08; PROTHROMBIN TIME 14.6 seconds (11.9-14.5)
[2020-04-20 09:53] LABS: PARTIAL THROMBOPLASTIN TIME 40.9 seconds (23.8-35.5)
[2020-04-20] MEDS ORDERED: ULTRAM50 MG PO (10:01)
[2020-04-20] MEDS ORDERED: AMIODARONE HCL200 MG PO (10:01)
[2020-04-20] MEDS ORDERED: PROVENTIL HFA6.7 GM INH (10:01)
[2020-04-20] MEDS ORDERED: LEVOTHYROXINE25 MCG NG (10:01)
[2020-04-20] MEDS ORDERED: TOPROL XL25 MG PO (10:01)
[2020-04-20] MEDS ORDERED: ASPIRIN CHEW81 MG PO (10:03)
--- NOTE | 2020-04-20 11:12 | NUR ---
Called and spoke with Pao with outpatient services. States she received order. Will reach out to family to schedule.
--- NOTE | 2020-04-20 11:25 | NUR ---
PATIENT DISCHARGED HOME WITH OUT PATIENT PT AND ST. PATIENT OFF THE UNIT @ 1114 VIA WHEELCHAIR ACCOMPANIED BY DAUGHTER AND PCT TO THE LOBBY. PATIENT IN STABLE CONDITION, NO S/S OF DISTRESS NOTED. NO PAIN NOTED. PICC LINE REMOVED WITH TIP INTACT. ALL PERSONAL ITEMS TAKEN WITH THE PATIENT. DISCHARGE TEACHING AND INSTRUCTION GIVEN TO THE PATIENT AND DAUGHTER. THE DAUGHTER AND PATIENT VERBALIZED UNDERSTANDING. PAPERWORK AND PRESCRIPTIONS GIVEN TO THE DAUGHTER.
[2020-04-21] MEDS ORDERED: METOPROLOL SUCCINATE 25 MG TAB XL PO SCH (09:00)
--- NOTE | 2020-04-21 13:46 | Discharge Summary ---
ADMISSION DIAGNOSES: Obstructive right renal calculus with mild hydronephrosis, aspiration pneumonia present on admission, CAD, COPD without acute exacerbation, infrarenal abdominal aortic aneurysm, new onset atrial fibrillation with RVR, acute on chronic systolic CHF, underweight/cachexia with a BMI of 15.06. DISCHARGE DIAGNOSES: Obstructive right renal calculus with mild hydronephrosis, aspiration pneumonia present on admission, CAD, COPD without acute exacerbation, infrarenal abdominal aortic aneurysm, new onset atrial fibrillation with RVR, acute on chronic systolic CHF, underweight/cachexia with a BMI of 15.06 plus hypothyroidism, hyperkalemia, rule out COVID, Shayy albicans UTI present on admission, rule out bacteremia, dysphagia with aspiration, NYDIA present on admission. HISTORY: COPD, chronic systolic CHF, hepatitis C, and kidney stones. SURGICAL HISTORY: Perforated ulcer and hernia repair. FAMILY HISTORY: Family history is unknown as the patient left [facility] when he was very young. SOCIAL HISTORY: The patient admits to smoking one-pack a day for 34 years. He quit about 35-40 years ago. HOSPITAL COURSE: An 85-year-old male admits with complaints of right flank pain and dizziness. He is supposed to have lithotripsy with Dr. Bonilla on Thursday, but his pain is 10/10 and he is unable to walk. On admission, CT of the abdomen and pelvis was done, which showed an obstructive 9 mm stone in the right kidney resulting in mild hydronephrosis, bilateral nephrolithiasis nodular airspace opacities of the lung bases with bronchiectasis most likely represents aspiration or multifocal pneumonia, cardiomegaly, infrarenal abdominal aortic aneurysm. Chest x-ray showed lung changes most compatible with emphysema, reticulonodular opacities of bilateral lung bases most consistent with multifocal pneumonia. CT of the brain showed no intracranial abnormalities. The patient's GFR on admission was 59, which improved after getting IV fluids. His TSH was 5.4, so he was started on levothyroxine. His BNP was 297 and his echo showed an EF of 35% to 40%. Cardiology was consulted. The patient then had a modified barium swallow, which demonstrated aspiration, so he had an NG tube placed. Pulmonology was consulted as well as GI for possible PEG placement. The patient was started on IV antibiotics for pneumonia and had a right PICC placed. His urine culture then came back positive for Shayy albicans so he was also started on fluconazole. Blood cultures were negative. Coronavirus negative. The patient went into atrial fibrillation RVR with a rate of 130 on 04/10. He was started on amiodarone and continued on beta edwin. Per Cardiology The patient is refusing anticoagulation. The patient's potassium level went down to 3.1 and eventually went up to 5.4. He had repeat modified barium swallow after getting an MBS per speech therapy, again he failed, so the NG tube was kept in place. Initially, the patient was advised to go to LTAC for physical therapy and speech therapy for an MBS, but the patient and daughter refused placement. After failing the second modified barium swallow the idea of PEG tube placement was rediscussed with the patient and daughter, who initially agreed to plan, then although the pneumonia treatment had completed at that point the daughter gave the anesthesiologist issues about his lung as she was still worried about it being unsafe, so she` refused the PEG placement so instead Interventional Radiology was consulted, again the daughter wanted to discuss the issues with anesthesia with the IR doctor, then the patient decided that he did not want the PEG placement at all and he did not want to go to inpatient rehab or LTAC, so he was sent home. The risks of doing so were discussed with the patient and daughter and they both agreed to plan. The patient lives at home with his and has good family support, so he will discharge home with new prescriptions for albuterol HFA inhaler, amiodarone, aspirin, levothyroxine, and metoprolol succinate as well as a new prescription for tramadol. He will follow up with primary care Cardiology in 1 to 2 weeks. Home health with physical therapy, occupational therapy and speech therapy were all arranged prior to discharge. At the time of discharge vital signs were stable and the patient was afebrile. Dictated by Sherley Espino NP MD [facility] /[id number]
== END 2020-04-20 11:16 | disposition home or self-care (01) | DRG 871 ==
LOC: ER 19:00 → ERHOLD 20:59 → ICU 23:53 → IMCU 04-09 23:00 → MED/SURG3 04-14 08:45
PROVIDERS: ADMIT Internal Medicine; ATTEND Internal Medicine
PROC: 0DH97UZ Insertion of Feeding Device into Duodenum, Via Natural or Artificial Opening (ICD-10-PCS; principal; 2020-04-08)
PROC: 02HV33Z Insertion of Infusion Device into Superior Vena Cava, Percutaneous Approach (ICD-10-PCS; 2020-04-09)
PROC: 02HV33Z Insertion of Infusion Device into Superior Vena Cava, Percutaneous Approach (ICD-10-PCS; 2020-04-11)
DX: A41.9 Sepsis, unspecified organism (principal); J69.0 Pneumonitis due to inhalation of food and vomit; I50.43 Acute on chronic combined systolic (congestive) and diastolic (congestive) heart failure; G93.41 Metabolic encephalopathy; E43 Unspecified severe protein-calorie malnutrition; N13.2 Hydronephrosis with renal and ureteral calculous obstruction; B37.49 Other urogenital candidiasis; N17.9 Acute kidney failure, unspecified; Z68.1 Body mass index [BMI] 19.9 or less, adult; R64 Cachexia; I13.0 Hypertensive heart and chronic kidney disease with heart failure and stage 1 through stage 4 chronic kidney disease, or unspecified chronic kidney disease; I43 Cardiomyopathy in diseases classified elsewhere; I25.10 Atherosclerotic heart disease of native coronary artery without angina pectoris; E03.9 Hypothyroidism, unspecified; E78.5 Hyperlipidemia, unspecified; B19.20 Unspecified viral hepatitis C without hepatic coma; I71.4 Abdominal aortic aneurysm, without rupture; I48.91 Unspecified atrial fibrillation; J43.9 Emphysema, unspecified; Z87.891 Personal history of nicotine dependence; Z91.19 Patient's noncompliance with other medical treatment and regimen; Z74.09 Other reduced mobility; Z85.46 Personal history of malignant neoplasm of prostate; E83.41 Hypermagnesemia; E83.39 Other disorders of phosphorus metabolism; R13.12 Dysphagia, oropharyngeal phase; N18.30 Chronic kidney disease, stage 3 unspecified; Z11.59 Encounter for screening for other viral diseases
CPT/HCPCS: 36415; 36569; 43752; 70450; 71045; 74018; 74176; 74230; 74470; 80048; 80053; 80061; 81001; 82550; 82553; 82948; 83036; 83690; 83735; 83880; 84100; 84132; 84443; 84484; 85025; 85610; 85730; 87040; 87086; 93005; 93306; 94640; 97139; 99251; 99284; J0360; J0456; J1160; J1450; J1630; J1650; J1885; J1940; J2001; J2060; J2270; J2405; J2543; J3475; J7030; J7050; J7060

== ENCOUNTER 2020-05-10 12:44 | Outpatient (RCR) | payer MEDICARE ==
[~2020-05-10 12:44] MED LIST: AMIODARONE HCL200 MG PO; ASPIRIN CHEW81 MG PO; LEVOTHYROXINE25 MCG NG; METOPROLOL TART25 MG PO; PROVENTIL HFA6.7 GM INH; TOPROL XL25 MG PO; ULTRAM50 MG PO
== END 2020-05-12 ==
LOC: ST 12:44
PROVIDERS: ATTEND Internal Medicine
DX: J69.0 Pneumonitis due to inhalation of food and vomit (principal); R26.9 Unspecified abnormalities of gait and mobility

== ENCOUNTER 2020-06-06 12:51 | Outpatient (RCR) | payer MEDICARE ==
--- NOTE | 2020-05-14 11:54 | NUR ---
ST NOTE: Pt had medication at home and is too dizzy to attend therapy, called and will have hime at next apt on 05/17/20
--- NOTE | 2020-05-31 10:19 | NUR ---
ST NOTE: phoned, pt fell and is not well enough to attend therapy today. Next apt 06/05/20
== END 2020-06-11 ==
LOC: ST 12:51
PROVIDERS: ATTEND Internal Medicine
DX: J69.0 Pneumonitis due to inhalation of food and vomit (principal); R26.9 Unspecified abnormalities of gait and mobility

== ENCOUNTER 2020-06-11 14:51 | Emergency (ER) | payer MEDICARE ==
[~2020-06-11] VITALS: Ht 177.8 cm; Wt 38.6 kg
[2020-06-11] MEDS ORDERED: ONDANSETRON HCL INJ 2MG/ML 2ML 2 MG/ML VIAL IV STA (15:41)
[2020-06-11] MEDS ORDERED: SODIUM CHLORIDE 0.9% 1000ML 1,000 ML IV STA (15:41)
[2020-06-11] MEDS ORDERED: PIPER-TAZ 3.375 GM 50 ML IV ONE (15:45)
[2020-06-11 16:00] LABS: BILIRUBIN,URINE NEGATIVE (NEGATIVE); CLARITY,URINE CLEAR (CLEAR); COLOR,URINE YELLOW (YELLOW); KETONES,URINE NEGATIVE (NEGATIVE); LEUKOCYTE ESTERASE ,URINE NEGATIVE (NEGATIVE); NITRITE,URINE NEGATIVE (NEGATIVE); PROTEIN,URINE DIPSTICK 2+ (NEGATIVE); URINE UROBILINOGEN 0.2 mg/dL (0.2 - 1)
[2020-06-11 16:01] LABS: INR 1.03; PARTIAL THROMBOPLASTIN TIME 27.7 seconds (23.8-35.5)
[2020-06-11 16:08] LABS: BASOPHILS % 0.1 % (0.0-1.0); HEMATOCRIT 40.9 % (38.2-49.6); LYMPHOCYTES # (AUTO) 1.1 (1.0-3.2); LYMPHOCYTES % 15.4 % (18.0-39.1); MEAN CORPUSCULAR HGB CONC 31.8 g/dL (31-35); MEAN CORPUSCULAR VOLUME 91.3 fL (81-99); MONOCYTES # (AUTO) 0.7 (0.2-0.8); MONOCYTES % 10.3 % (4.4-11.3); NEUTROPHILS # (AUTO) 5.2 (2.1-6.9); NEUTROPHILS % 73.8 % (38.7-80.0); PLATELET COUNT 201 x10e3/uL (140-360); RED BLOOD COUNT 4.48 x10e6/uL (4.3-5.7); RED CELL DISTRIBUTION WIDTH 15.1 % (11.7-14.4)
[2020-06-11 16:09] LABS: ALANINE AMINOTRANSFERASE 17 IU/L (0-55); ALBUMIN 3.1 g/dL (3.5-5.0); ALBUMIN/GLOBULIN RATIO 0.7 (0.8-2.0); ALKALINE PHOSPHATASE 100 IU/L (40-150); ANION GAP 14.4 mmol/L (8-16); BLOOD UREA NITROGEN 20 mg/dL (7-26); BUN/CREATININE RATIO 20 (6-25); CALCIUM 8.5 mg/dL (8.4-10.2); CARBON DIOXIDE 25 mmol/L (22-29); CHLORIDE 98 mmol/L (98-107); CREATINE KINASE 75 IU/L (30-200); CREATININE, SERUM 0.99 mg/dL (0.72-1.25); EST GLOMERULAR FILTRATION RATE > 60 ML/MIN (60-); GLUCOSE 103 mg/dL (74-118); MAGNESIUM 1.7 MG/DL (1.3-2.1); POTASSIUM 4.4 mmol/L (3.5-5.1); SODIUM 133 mmol/L (136-145)
[2020-06-11 16:28] LABS: THYROID STIMULATING HORMONE 20.578 uIU/mL (0.350-4.940)
[2020-06-11 16:29] LABS: BACTERIA,URINE FEW /HPF; EPITHELIAL CELLS,URINE FEW /LPF; RBC,URINE >50 /HPF (0-5); WBC,URINE (MAN) 0-5 /HPF (0-5)
[2020-06-11 16:30] LABS: RENAL EPITHELIAL CELLS,URINE FEW
[2020-06-11 16:54] LABS: B-TYPE NATRIURETIC PEPTIDE2 319.9 pg/mL (0-100)
[2020-06-11 19:36] VITALS: BP 139/87
== END 2020-06-11 19:50 | disposition other institution (70) ==
LOC: ER 14:57
DX: U07.1 COVID-19 (principal); R62.7 Adult failure to thrive; E86.0 Dehydration; I10 Essential (primary) hypertension; I50.9 Heart failure, unspecified; J44.9 Chronic obstructive pulmonary disease, unspecified; B19.20 Unspecified viral hepatitis C without hepatic coma
CPT/HCPCS: 36415; 71045; 80053; 81001; 82550; 82553; 83605; 83735; 83880; 84443; 84484; 85025; 85610; 85730; 87040; 87086; 87400; 99285; J2405; J2543; J7030; U0002